=== PATIENT | female | born 1990 | race African-American/Black ===

== ENCOUNTER 2017-11-14 11:41 | Emergency (ER) | payer OTHER ==
[2017-11-14 11:51] VITALS: BMI 26.5
--- NOTE | 2017-11-14 12:01 | PDOC ---
History of Present Illness - General Chief Complaint: Headache Stated Complaint: MIGRAINE HEADACHE, LEG PAIN Time Seen by Provider: 11/14/17 12:00 - History of Present Illness Initial Comments: 11/14/17 12:46 The patient is a 27 year old female with a history of bipolar and MS who presents for evaluation of headache. The patient notes that she has been experiencing a poorly described headache over the past 1-2 days that has been minimally responsive to tylenol. She also noted that her menstruation only lasted 1 day ending today and that she has unprotected intercourse with her partner which prompted her presentation to the ED for further evaluation. She otherwise denies fevers, chills, vision changes, SOB, chest pain, nausea, vomiting, abdominal pain, numbness, tingling, weakness, or changes with urination or bowel movements. Past History - Past Medical History Allergies/Adverse Reactions: Allergies Allergy/AdvReac Type Severity Reaction Status Date / Time latex Allergy Verified 11/14/17 11:47 Home Medications: Ambulatory Orders Naproxen [Naprosyn -] 500 mg PO BID PRN #14 tablet 09/16/15 Teriflunomide [Aubagio] 14 mg PO ASDIR 09/16/15 COPD: No Psychiatric Problems: Yes (BIPOLAR.) Other medical history: M.S - Surgical History Abdominal Surgery: Yes - Reproductive History (#): 4 Para: 1 Therapeutic (s) & number: Yes (2) Spontaneous : 1 - Immunization History Immunization Up to Date: Yes - Suicide/Smoking/Psychosocial Hx Smoking Status: No Smoking History: Never smoked Have you smoked in the past 12 months: No Number of Cigarettes Smoked Daily: 0 Information on smoking cessation initiated: No Hx Alcohol Use: No Drug/Substance Use Hx: No Substance Use Type: None Hx Substance Use Treatment: No Review of Systems - Review of Systems Comments:: 11/14/17 12:49 Constitutional: No fevers, chills, fatigue, malaise HEENT: No Rhinorrhea, nasal congestion, visual changes Cardiovascular: No chest pain, syncope, palpitations, lightheadedness Respiratory: No Cough, SOB, Hemoptysis, Gastrointestinal: No Abdominal pain, Nausea, Vomiting, Constipation, Diarrhea, Melena Genitourinary: No Dysuria, Frequency, Urgency, Hesitancy, Hematuria, Flank pain Musculoskeletal: No Myalgia, arthralgia Skin: No rashes, itching, bruising, pallor Neurologic: Headache. No Dizziness, Numbness, Weakness, or Tingling Psychiatric: No Hallucinations. No SI or HI *Physical Exam - Vital Signs Last Vital Signs Temp Pulse Resp BP Pulse Ox 98.6 F 80 18 116/73 100 11/14/17 11:49 11/14/17 11:49 11/14/17 11:49 11/14/17 11:49 11/14/17 11:49 - Physical Exam Comments: 11/14/17 12:50 General Appearance: Nourished. No Apparent Distress HEENT: EOMI, DEBORAH. No Pharyngeal Erythema, Tonsillar Exudate, Tonsillar Erythema Neck: No Cervical Lymphadenopathy Respiratory/Chest: Lungs Clear, Normal Breath Sounds. No Crackles, Rales, Rhonchi, Wheezing Cardiovascular: Regular Rhythm, Regular Rate. No Murmur, Gallops, Rubs Gastrointestinal/Abdominal: Normal Bowel Sounds, Soft. No Guarding, Rebound, Tenderness Musculoskeletal: No CVA Tenderness Extremity: Normal Capillary Refill Integumentary: Normal Color, Dry, Warm Neurologic: Fully Oriented, Alert, Normal Mood/Affect, Normal Response, Medical Decision Making - Medical Decision Making 11/14/17 12:50 The patient is a 27 year old female with a history of bipolar and MS who presents for evaluation of headache. Differential includes but is not limited to: , Migraine, UTI. Given the patient's history and physical exam, we will obtain a ua and urine preg to evaluate further. We will treat the patient in the meantime with po reglan and tylenol. We will continue to monitor and reassess. 11/14/17 13:32 ua, urine preg are negative. The patient reports improvement in his symptoms. We are comfortable discharging the patient home with primary care provider follow up. We discussed the results, plan, and return precautions with the patient who voiced understanding and is agreeable with the plan. *DC/Admit/Observation/Transfer Diagnosis at time of Disposition: Headache Qualifiers: Headache type: unspecified Headache chronicity pattern: unspecified pattern Intractability: not intractable Qualified Code(s): R51 - Headache - Discharge Dispostion Disposition: HOME Condition at time of disposition: Stable Decision to Admit order: No - Referrals Referrals: Dwain Tejada [Primary Care Provider] - - Patient Instructions Printed Discharge Instructions: DI for Headache Additional Instructions: Please return to the ER if you experience concerning or worsening symptoms including worsening headache, vomiting, or fevers. Your test was negative here in the ER. It is important that you call to schedule a follow up appointment with your primary care provider within 2-3 days to discuss your ER visit and further management of your symptoms. - Post Discharge Activity
[2017-11-14] MEDS ORDERED: ACETAMINOPHEN 325 MG TABLET (FP) PO ONE (12:40)
[2017-11-14] MEDS ORDERED: METOCLOPRAMIDE HCL 10 MG TABLET (FP) PO ONE ×2 (12:40→13:18)
[2017-11-14 13:07] LABS: HCG,QUALITATIVE URINE NEGATIVE
[2017-11-14 13:12] LABS: URINE APPEARANCE CLEAR; URINE BILIRUBIN NEGATIVE (<2.0 mg/dL); URINE BLOOD 1+ (NEGATIVE); URINE COLOR LTYELLOW; URINE GLUCOSE (UA) NEGATIVE (NEGATIVE); URINE KETONE NEGATIVE (NEGATIVE); URINE LEUK ESTERASE NEGATIVE (NEGATIVE); URINE NITRITE NEGATIVE (NEGATIVE); URINE PROTEIN NEGATIVE (NEGATIVE)
[2017-11-14 13:14] LABS: EPI CELLS RARE /HPF (FEW); URINE MUCUS RARE
[2017-11-14] MEDS ORDERED: ACETAMINOPHEN 325 MG TABLET (FP) ONE (13:18)
--- NOTE | 2017-11-14 13:21 | PDOC ---
Attending Attestation - Resident Resident Name: Pedro Sharma - ED Attending Attestation I have performed the following: I have examined & evaluated the patient, The case was reviewed & discussed with the resident, I agree w/resident's findings & plan - HPI HPI: 11/14/17 13:19 27-year-old female with history of multiple sclerosis and bipolar disorder presents for a urine test. She has unprotected sex with her , is without any pelvic complaints or vaginal discharge or bleeding. She is complaining of subacute/chronic headaches and dizziness which are presumably part of her MS, no other acute flare or exacerbation. - Physicial Exam PE: 11/14/17 13:20 Vital signs normal Urine negative Alert seated in stretcher texting on her cell phone oriented and reasonable abd exam benign neuro nonfocal - Medical Decision Making 11/14/17 13:20 27-year-old female essentially here to rule out . Urinalysis is clear, urine is negative No symptoms suggestive of STI Nonfocal neurological exam, well-appearing and ambulating Reassured, agrees with discharge plan
[2017-11-14 13:49] VITALS: BP 112/70; PULSE 76; TEMP 98.1
== END 2017-11-14 13:50 | disposition home or self-care (01) ==
LOC: JER 11:41
DX: R51 Headache (principal)
CPT/HCPCS: 81003; 81015; 84703; 99282-25

== ENCOUNTER 2018-02-08 16:17 | Emergency (ER) | payer OTHER ==
[2018-02-08 16:26] VITALS: BP 119/64; PULSE 98; TEMP 98.6; BMI 25.2
--- NOTE | 2018-02-08 16:45 | PDOC ---
History of Present Illness - General Chief Complaint: Pain Stated Complaint: RT LEG PAIN Time Seen by Provider: 02/08/18 16:40 History Source: Patient Exam Limitations: No Limitations Past History - Travel Traveled outside of the country in the last 30 days: No Close contact w/someone who was outside of country & ill: No - Past Medical History Allergies/Adverse Reactions: Allergies Allergy/AdvReac Type Severity Reaction Status Date / Time latex Allergy Verified 02/08/18 16:23 Home Medications: Ambulatory Orders Teriflunomide [Aubagio] 14 mg PO ASDIR 09/16/15 Ibuprofen [Motrin -] 600 mg PO TID #21 tablet 02/08/18 COPD: No Psychiatric Problems: Yes (BIPOLAR.) Other medical history: MS - Surgical History Abdominal Surgery: Yes - Reproductive History (#): 4 Para: 1 Therapeutic (s) & number: Yes (2) Spontaneous : 1 - Immunization History Immunization Up to Date: Yes - Suicide/Smoking/Psychosocial Hx Smoking Status: No Smoking History: Never smoked Have you smoked in the past 12 months: No Number of Cigarettes Smoked Daily: 0 Hx Alcohol Use: No Drug/Substance Use Hx: No Substance Use Type: None Hx Substance Use Treatment: No *Physical Exam - Vital Signs Last Vital Signs Temp Pulse Resp BP Pulse Ox 98.6 F 98 H 16 119/64 100 02/08/18 16:25 02/08/18 16:25 02/08/18 16:25 02/08/18 16:25 02/08/18 16:25 *DC/Admit/Observation/Transfer Diagnosis at time of Disposition: High ankle sprain Qualifiers: Encounter type: initial encounter Laterality: right Qualified Code(s): S93.431A - Sprain of tibiofibular ligament of right ankle, initial encounter - Discharge Dispostion Disposition: HOME Condition at time of disposition: Stable Decision to Admit order: No - Referrals Referrals: Chang Pa MD [Staff Physician] - - Patient Instructions Printed Discharge Instructions: DI for Ankle Sprain Additional Instructions: You sprained your ankle. Please keep your ankle elevated while at rest above the level of your heart to reduce swelling. You may take Motrin 600 mg every 8 hours to help reduce pain and swelling. Please ice the area for 20 minute intervals at least 5 times a day to help reduce swelling. Please wear the Edu wrap. Please follow-up with orthopedics in 1 week if your symptoms are not improving. Return to the emergency department if you have worsening pain, or unable to walk , numbness and tingling of the foot, or had any changes in her symptoms. - Post Discharge Activity Forms/Work/School Notes: Back to Work
== END 2018-02-08 17:04 | disposition home or self-care (01) ==
LOC: JERFT 16:17
DX: S93.431A Sprain of tibiofibular ligament of right ankle, initial encounter (principal); X50.9XXA Other and unspecified overexertion or strenuous movements or postures, initial encounter; Y93.89 Activity, other specified; Y92.89 Other specified places as the place of occurrence of the external cause; Y99.8 Other external cause status; F31.9 Bipolar disorder, unspecified
CPT/HCPCS: 99281-25

== ENCOUNTER 2018-02-21 12:41 | Emergency (ER) | payer OTHER ==
[2018-02-21 12:45] VITALS: BP 102/65; PULSE 90; TEMP 98.2; BMI 24.8
[2018-02-21] MEDS ORDERED: ACETAMINOPHEN 500 MG TABLET (FP) PO ONE (13:17)
--- NOTE | 2018-02-21 13:21 | PDOC ---
History of Present Illness - General Chief Complaint: Headache Stated Complaint: HEADACHE Time Seen by Provider: 02/21/18 13:13 - History of Present Illness Initial Comments: 28-year-old female with a past medical history significant for multiple sclerosis presents for evaluation of headache 5 days. She has not taken anything for headache. She is also requesting a test. 02/21/18 13:20 Past History - Past Medical History Allergies/Adverse Reactions: Allergies Allergy/AdvReac Type Severity Reaction Status Date / Time latex Allergy Verified 02/21/18 12:45 Home Medications: Ambulatory Orders Teriflunomide [Aubagio] 14 mg PO ASDIR 09/16/15 Pnv No.121/Iron/Folic Acid [ Multivitamin Tablet] 1 each PO DAILY #30 tablet 02/21/18 COPD: No Psychiatric Problems: Yes (BIPOLAR.) - Surgical History Abdominal Surgery: Yes - Reproductive History (#): 4 Para: 1 Therapeutic (s) & number: Yes (2) Spontaneous : 1 - Immunization History Immunization Up to Date: Yes - Suicide/Smoking/Psychosocial Hx Smoking Status: No Smoking History: Never smoked Have you smoked in the past 12 months: No Number of Cigarettes Smoked Daily: 0 Hx Alcohol Use: No Drug/Substance Use Hx: No Substance Use Type: None Hx Substance Use Treatment: No Review of Systems - Review of Systems Neurological: Yes: Headache All Other Systems: Reviewed and Negative *Physical Exam - Vital Signs Last Vital Signs Temp Pulse Resp BP Pulse Ox 98.2 F 90 18 102/65 98 02/21/18 12:43 02/21/18 12:43 02/21/18 12:43 02/21/18 12:43 02/21/18 12:43 - Physical Exam Comments: HEAD: NC/AT EYES: Conjuntiva clear Ears: Canals and TM's normal NOSE: No d/c THROAT: Moist mucous membrances, oral pharanx clear, uvula midline NECK: Supple without adenopathy CARDIAC: S1 S2 LUNGS: CTA Full and Equal breath sounds ABDOMEN: Soft NT ND MS: Full ROM in all joints without edema NEUROLOGIC: No gross sensory or motor deficits, NVID SKIN: Normal color and temperature no lesions or rashes 02/21/18 13:20 *DC/Admit/Observation/Transfer Diagnosis at time of Disposition: , Headache Diagnosis at time of Disposition: (Ruled Out): Early stage of - Discharge Dispostion Disposition: HOME Condition at time of disposition: Stable Decision to Admit order: No - Referrals Referrals: Rob Milner [Non Staff, Medical] - Rishi Silverio [Non Staff, Medical] - Laura Hunter MD [Non Staff, Medical] - Maycol Tinsley MD [Non Staff, Medical] - Katelyn Belle MD [Staff Physician] - Jordon Toribio MD [Non Staff, Medical] - Misa Galan [Non Staff, Medical] - Yenny Ventura [Non Staff, Medical] - Linda Gama MD [Non Staff, Medical] - Yaneli Quijano [Non Staff, Medical] - Messi Akhtar MD [Staff Physician] - - Patient Instructions Printed Discharge Instructions: Tension Headache Additional Instructions: Return to the emergency room should symptoms worsen or go unresolved. Please take Tylenol only for pain at this point. You are , I have prescribed few a vitamin which she can olive picker he her pharmacy at 1 tablet daily. In addition I given you a list of primary care physicians and upset obstetricians to follow-up with. As well as a neurologist fear headache. Follow- up with neurology in [facility] within the next day or 2 return to the emergency room should symptoms worsen - Post Discharge Activity
[2018-02-21] MEDS ORDERED: ACETAMINOPHEN 500 MG TABLET (FP) ONE (13:25)
== END 2018-02-21 14:14 | disposition home or self-care (01) ==
LOC: JERFT 12:41
DX: Z33.1 Pregnant state, incidental (principal); R51 Headache
CPT/HCPCS: 84703; 99281-25

== ENCOUNTER 2018-03-03 12:31 | Emergency (ER) | payer OTHER ==
[2018-03-03 12:39] VITALS: BMI 23.8
--- NOTE | 2018-03-03 12:57 | PDOC ---
History of Present Illness - General Chief Complaint: Headache Stated Complaint: 6 WEEKS WITH PAIN Time Seen by Provider: 03/03/18 12:48 - History of Present Illness Initial Comments: 03/03/18 12:51 28 yo at 6wga, unknown LMP, who p/w headache. Patient reports two days of worsening, right sided, pulsating, intermittent, headache, with slight photophobia, and phonophobia. Also endorses 1 episode of non bilious, non bloody emesis x 2 days [employer] TE[employer]. +diffuse lower abdominal cramping, intermittently, with no triggers. Denies OTC pain management. Currently on Metronidazole x 1 day. Patient denies N/V,lacrimation, rhinorrhea, vision change, convulsions, neck stiffness, F,C, cough, CP, SOB, urinary complaints, diarrhea, constipation, vaginal bleeding or discharge, lightheadedness, weakness, sensory changes. PMHx: as noted above ROS: as noted SHx: Denies tobacco, IVDA, Etoh. Allergies: NKDA [facility]: [facility] Past History - Past Medical History Allergies/Adverse Reactions: Allergies Allergy/AdvReac Type Severity Reaction Status Date / Time latex Allergy Verified 03/03/18 12:33 Home Medications: Ambulatory Orders Teriflunomide [Aubagio] 14 mg PO ASDIR 09/16/15 Pnv No.121/Iron/Folic Acid [ Multivitamin Tablet] 1 each PO DAILY #30 tablet 02/21/18 COPD: No DVT: No Psychiatric Problems: Yes (BIPOLAR.) Other medical history: M.S - Surgical History Abdominal Surgery: Yes - Reproductive History (#): 4 Para: 1 Therapeutic (s) & number: Yes (2) Spontaneous : 1 - Immunization History Immunization Up to Date: Yes - Suicide/Smoking/Psychosocial Hx Smoking Status: No Smoking History: Never smoked Have you smoked in the past 12 months: No Number of Cigarettes Smoked Daily: 0 Information on smoking cessation initiated: No Hx Alcohol Use: No Drug/Substance Use Hx: No Substance Use Type: None Hx Substance Use Treatment: No Neuro Specific PMHX - Complaint Specific PMHX Multiple Sclerosis: Yes Review of Systems - Review of Systems Comments:: 03/03/18 12:55 GENERAL/CONSTITUTIONAL: No fever or chills. No weakness. HEAD, EYES, EARS, NOSE AND THROAT: No change in vision. No ear pain or discharge. No sore throat. CARDIOVASCULAR: No chest pain or shortness of breath RESPIRATORY: No cough, wheezing, or hemoptysis. GASTROINTESTINAL: No nausea, vomiting, diarrhea or constipation. GENITOURINARY: No dysuria, frequency, or change in urination. MUSCULOSKELETAL: No joint or muscle swelling or pain. No neck or back pain. SKIN: No rash NEUROLOGIC: No headache, vertigo, loss of consciousness, or change in strength/ sensation. ENDOCRINE: No increased thirst. No abnormal weight change HEMATOLOGIC/LYMPHATIC: No anemia, easy bleeding, or history of blood clots. ALLERGIC/IMMUNOLOGIC: No hives or skin allergy. *Physical Exam - Vital Signs Last Vital Signs Temp Pulse Resp BP Pulse Ox 98.5 F 87 18 112/65 100 03/03/18 12:36 03/03/18 12:36 03/03/18 12:36 03/03/18 12:36 03/03/18 12:36 - Physical Exam Comments: 03/03/18 12:55 GENERAL: Awake, alert, and fully oriented, in no acute distress HEAD: No signs of trauma, normocephalic, atraumatic EYES: PERRLA, EOMI, sclera anicteric, conjunctiva clear ENT: Auricles normal inspection, hearing grossly normal, nares patent, oropharynx clear without exudates. Moist mucosa NECK: Normal ROM, supple, no lymphadenopathy, JVD, or masses LUNGS: No distress, speaks full sentences, clear to auscultation bilaterally HEART: Regular rate and rhythm, normal S1 and S2, no murmurs, rubs or gallops, peripheral pulses normal and equal bilaterally. ABDOMEN: Soft, nontender, normoactive bowel sounds. No guarding, no rebound. No masses EXTREMITIES : Normal inspection, Normal range of motion, no edema. No clubbing or cyanosis. NEUROLOGICAL: Cranial nerves II through XII grossly intact. Normal speech, normal gait, no focal sensorimotor deficits SKIN: Warm, Dry, normal turgor, no rashes or lesions noted ED Treatment Course - LABORATORY CBC & Chemistry Diagram: 03/03/18 14:10 03/03/18 14:10 Medical Decision Making - Medical Decision Making 03/03/18 13:46 28 yo at 6wga, unknown LMP, who p/w headache, and lower abdominal pain. VSS, AF. Low suspcion preclampsia. Will assess for viable IUP. Patient with slight lower abdominal pain, with absent vaginal bleeding. R/o ectopic , threatened , cystitis. Patient with probable migraine. Absent neuro deficits, with absent alarm findings. Low suspicion SAH, hemaotma, sinus thrombosis. Ed Course: CBC, CMP, UA, Urine Cx. HCG Tylenol 03/03/18 14:32 03/03/18 15:49 [facility] CBC,CMP: Unremarkable 03/03/18 16:51 TVUS: 6w 1d, with no FHR. pole visualized in yolk sac within gestational sac within uterus. Patient advised to f/u for repeat ultrasound, and serial HCG. Patient symptoms improved. Stable for d/c with return precautions. Advised to f/ u with [facility] for serial testing. *DC/Admit/Observation/Transfer Diagnosis at time of Disposition: Headache Qualifiers: Headache type: unspecified Headache chronicity pattern: acute headache Intractability: not intractable Qualified Code(s): R51 - Headache - Discharge Dispostion Condition at time of disposition: Stable - Referrals Referrals: Han Stubbs MD [Staff Physician] - - Patient Instructions Printed Discharge Instructions: DI for Headache Additional Instructions: Please return to the emergency department with any new or worsening symptoms or concerns. Please follow up with your primary care physician within 72 hours. Please follow up with [facility] within 72 hours for repeat ultrasound and blood work. - Post Discharge Activity - Attestations Physician Attestion: 03/03/18 12:58 I attest to the information provided in this note.
--- NOTE | 2018-03-03 12:59 | PDOC ---
Attending Attestation - Resident Resident Name: RyanJose ManuelAashish - ED Attending Attestation I have performed the following: I have examined & evaluated the patient, The case was reviewed & discussed with the resident, I agree w/resident's findings & plan, Exceptions are as noted - HPI HPI: 28 yo approximately 6 weeks by dates (previously seen at [facility]), who p/w headache (right sided, throbbing, intermittent x 2 days), and diffuse lower abdominal pain. Patient with probable migraine. Absent neuro deficits, with absent alarm findings. Low suspicion SAH, hemaotma, sinus thrombosis. No nausea, one episode of vomiting No neck stiffness No dysuria or diarrhea - Physicial Exam PE: GENERAL: Awake, alert, and fully oriented, in no acute distress HEAD: No signs of trauma, normocephalic, atraumatic EYES: PERRLA, EOMI NECK: Normal ROM, supple, no nuchal rigidity LUNGS: No distress, speaks full sentences, clear to auscultation bilaterally HEART: Regular rate and rhythm, normal S1 and S2 ABDOMEN: Soft, nontender EXTREMITIES : Normal inspection, Normal range of motion . NEUROLOGICAL: Cranial nerves II through XII grossly intact. Normal speech, normal gait, no focal sensorimotor deficits - Medical Decision Making 03/05/18 08:26 Pt presents to the ER with a headache Requesting evaluation of [facility] CBC,CMP: Unremarkable UA negative TVUS: 6w 1d, with no FHR Patient advised to f/u for repeat ultrasound, and serial HCG.
[2018-03-03] MEDS ORDERED: ACETAMINOPHEN 325 MG TABLET (FP) PO ONE (13:42)
[2018-03-03 13:59] LABS: HCG,QUALITATIVE URINE Positive
[2018-03-03 14:00] LABS: URINE APPEARANCE CLEAR; URINE BILIRUBIN NEGATIVE (<2.0 mg/dL); URINE COLOR YELLOW; URINE GLUCOSE (UA) NEGATIVE (NEGATIVE); URINE KETONE NEGATIVE (NEGATIVE); URINE LEUK ESTERASE NEGATIVE (NEGATIVE); URINE NITRITE NEGATIVE (NEGATIVE); URINE PROTEIN NEGATIVE (NEGATIVE); URINE UROBILINOGEN NEGATIVE mg/dL (0.2-1.0)
[2018-03-03] MEDS ORDERED: ACETAMINOPHEN 325 MG TABLET (FP) ONE (14:17)
[2018-03-03 14:29] LABS: BASO % 0.7 % (0-2.0); EOS % 0.7 % (0-4.5); HEMATOCRIT 35.5 % (32.4-45.2); HEMOGLOBIN 11.6 GM/dL (10.7-15.3); LYMPH % 18.7 % (8-40); MCH 26.5 pg (25.7-33.7); MCHC 32.7 g/dl (32.0-36.0); MEAN CELL VOLUME 81.1 fl (80-96); MEAN PLT VOLUME 7.6 fl (7.5-11.1); NEUT % 72.9 % (42.8-82.8); PLATELET COUNT 201 K/MM3 (134-434); RBC 4.37 M/mm3 (3.60-5.2); RDW 14.6 % (11.6-15.6); WHITE BLOOD COUNT 6.6 K/mm3 (4.0-10.0)
[2018-03-03 14:44] LABS: ALBUMIN 4.1 g/dl (3.4-5.0); ALK PHOS 36 U/L (45-117); ANION GAP 10 MMOL/L (8-16); BILIRUBIN,TOTAL 0.5 mg/dL (0.2-1); BLOOD UREA NITROGEN 7 mg/dL (7-18); CALCIUM 8.7 mg/dL (8.5-10.1); CHLORIDE 104 mmol/L (98-107); CO2 24 mmol/L (21-32); CREATININE 0.6 mg/dL (0.55-1.3); GLUCOSE,RANDOM 84 mg/dL (74-106); POTASSIUM 3.6 mmol/L (3.5-5.1); SGOT/AST 15 U/L (15-37); SGPT/ALT 18 U/L (13-61); SODIUM 138 mmol/L (136-145); TOT PROT 6.9 g/dl (6.4-8.2)
[2018-03-03 16:45] VITALS: BP 96/63; PULSE 83; TEMP 98.1
== END 2018-03-03 17:17 | disposition home or self-care (01) ==
LOC: JER 12:31
DX: O26.891 Other specified pregnancy related conditions, first trimester (principal); R51 Headache; Z3A.01 Less than 8 weeks gestation of pregnancy
CPT/HCPCS: 36415; 76817-TC; 80053; 81003; 84702; 84703; 85025; 87086; 99282-25

== ENCOUNTER 2018-03-18 19:27 | Emergency (ER) | payer OTHER ==
[2018-03-18 19:47] VITALS: BP 110/62; PULSE 97; TEMP 98; BMI 24.8
[2018-03-18] MEDS ORDERED: ACETAMINOPHEN 325 MG TABLET (FP) PO ONE (21:25)
[2018-03-18] MEDS ORDERED: SODIUM CHLORIDE 0.9% 500 ML INFUS.BAG IV ONE (21:25)
--- NOTE | 2018-03-18 21:39 | PDOC ---
History of Present Illness - General Chief Complaint: Lightheaded Stated Complaint: WITH DIZZINESS Time Seen by Provider: 03/18/18 20:56 History Source: Patient Exam Limitations: No Limitations - History of Present Illness Initial Comments: 03/18/18 21:32 Patient is a 28 year old female with h/o MS 012, unknown LMP, who is 8 weeks 2 days based on ultrasound done on 03/03/18 at 6 weeks 1 day, complaining of lightheadedness back pain. Patient states symptoms started today. Back pain described as achy, 7/10, continuous. States she drink a lot of juice. No vaginal bleeding, no leakage of fluid. PMD: Dr. Pace PMHX: as above PSOCHX: GENERAL/CONSTITUTIONAL: [No fever or chills. (+) weakness. No weight change.] HEAD, EYES, EARS, NOSE AND THROAT: [No change in vision. No ear pain or discharge. No sore throat.] CARDIOVASCULAR: [No chest pain or shortness of breath.] RESPIRATORY: [No cough, wheezing, or hemoptysis.] GASTROINTESTINAL: [No nausea, vomiting, diarrhea or constipation. No rectal bleeding.] GENITOURINARY: [No dysuria, frequency, or change in urination.] MUSCULOSKELETAL: [No joint or muscle swelling or pain. No neck or back pain.] SKIN AND BREASTS: [No rash or easy bruising.] NEUROLOGIC: [No headache, vertigo, loss of consciousness, or loss of sensation.] PSYCHIATRIC: [No depression or anxiety.] ENDOCRINE: [No increased thirst. No abnormal weight change.] HEMATOLOGIC/LYMPHATIC: [No anemia, easy bleeding, or history of blood clots.] ALLERGIC/IMMUNOLOGIC: [No hives or skin allergy. No latex allergy.] GENERAL: [The patient is awake, alert, and fully oriented, in no acute distress. ] HEAD: [Normal with no signs of trauma.] EYES: [Pupils equal, round and reactive to light, extraocular movements intact, sclera anicteric, conjunctiva clear.] ENT: [Ears normal, nares patent, oropharynx clear without exudates. Moist mucous membranes.] NECK: [Normal range of motion, supple without lymphadenopathy, JVD, or masses.] LUNGS: [Breath sounds equal, clear to auscultation bilaterally. No wheezes, and no crackles.] HEART: [Regular rate and rhythm, normal S1 and S2 without murmur, rub.] ABDOMEN: [Soft, nontender, normoactive bowel sounds. No guarding, no rebound. No masses, (-) CVAT.] EXTREMITIES: [Normal range of motion, no edema. No clubbing or cyanosis. No cords, erythema, or tenderness.] NEUROLOGICAL: [Cranial nerves II through XII grossly intact. Normal speech, normal gait.] PSYCH: [Normal mood, normal affect.] SKIN: [Warm, Dry, normal turgor, no rashes or lesions noted.] Past History - Past Medical History Allergies/Adverse Reactions: Allergies Allergy/AdvReac Type Severity Reaction Status Date / Time latex Allergy Verified 03/18/18 19:48 Home Medications: Ambulatory Orders Teriflunomide [Aubagio] 14 mg PO ASDIR 09/16/15 Pnv No.121/Iron/Folic Acid [ Multivitamin Tablet] 1 each PO DAILY #30 tablet 02/21/18 105/Iron/Folic AC/Dha [Prena1 True Combo Pack] 1 each PO ONCE 30 Days # 30 combo..pkg MDD 1 tab 03/03/18 105/Iron/Folic AC/Dha [Vitatrue Combo Pack] 1 each PO ONCE 30 Days #30 combo..pkg MDD 1 tab 03/03/18 COPD: No DVT: No Psychiatric Problems: Yes (BIPOLAR.) Other medical history: MULTIPLE SCLEROSSI - Surgical History Abdominal Surgery: Yes - Reproductive History (#): 4 Para: 1 Therapeutic (s) & number: Yes (2) Spontaneous : 1 - Immunization History Immunization Up to Date: Yes - Suicide/Smoking/Psychosocial Hx Smoking Status: No Smoking History: Never smoked Have you smoked in the past 12 months: No Number of Cigarettes Smoked Daily: 0 Hx Alcohol Use: No Drug/Substance Use Hx: No Substance Use Type: None Hx Substance Use Treatment: No *Physical Exam - Vital Signs Last Vital Signs Temp Pulse Resp BP Pulse Ox 98 F 97 H 18 110/62 100 03/18/18 19:42 03/18/18 19:42 03/18/18 19:42 03/18/18 19:42 03/18/18 19:42 ED Treatment Course - LABORATORY CBC & Chemistry Diagram: 03/18/18 21:50 03/18/18 21:50 Medical Decision Making - Medical Decision Making 03/18/18 21:39 Patient is a 28-year-old female 03/18/18 22:08 Bedside ultrasound done shows IUP age-appropriate, FH 171. Addendum entered and electronically signed by Jason Underwood 03/19/18 03: 19: Progress Note - Progress Note Progress Note: see old chart Addendum entered and electronically signed by Jason Underwood 03/19/18 03: 20:
[2018-03-18] MEDS ORDERED: ACETAMINOPHEN 325 MG TABLET (FP) ONE (21:42)
[2018-03-18 22:04] LABS: BASO % 0.7 % (0-2.0); EOS % 0.8 % (0-4.5); HEMATOCRIT 32.9 % (32.4-45.2); HEMOGLOBIN 10.7 GM/dL (10.7-15.3); LYMPH % 17.9 % (8-40); MCH 26.5 pg (25.7-33.7); MCHC 32.6 g/dl (32.0-36.0); MEAN CELL VOLUME 81.3 fl (80-96); MEAN PLT VOLUME 7.3 fl (7.5-11.1); MONO % 7.9 % (3.8-10.2); NEUT % 72.7 % (42.8-82.8); PLATELET COUNT 244 K/MM3 (134-434); RBC 4.04 M/mm3 (3.60-5.2); RDW 14.5 % (11.6-15.6)
[2018-03-18 22:28] LABS: ALBUMIN 3.7 g/dl (3.4-5.0); ALK PHOS 61 U/L (45-117); ANION GAP 9 MMOL/L (8-16); BILIRUBIN,TOTAL 0.2 mg/dL (0.2-1); BLOOD UREA NITROGEN 11 mg/dL (7-18); CALCIUM 8.5 mg/dL (8.5-10.1); CHLORIDE 105 mmol/L (98-107); CO2 24 mmol/L (21-32); CREATININE 0.5 mg/dL (0.55-1.3); GLUCOSE,RANDOM 80 mg/dL (74-106); POTASSIUM 3.8 mmol/L (3.5-5.1); SGOT/AST 17 U/L (15-37); SGPT/ALT 29 U/L (13-61); SODIUM 138 mmol/L (136-145); TOT PROT 6.7 g/dl (6.4-8.2)
[2018-03-18 23:18] LABS: URINE APPEARANCE SLCLOUDY; URINE BILIRUBIN NEGATIVE (<2.0 mg/dL); URINE COLOR LTYELLOW; URINE GLUCOSE (UA) NEGATIVE (NEGATIVE); URINE KETONE NEGATIVE (NEGATIVE); URINE LEUK ESTERASE NEGATIVE (NEGATIVE); URINE NITRITE NEGATIVE (NEGATIVE); URINE PROTEIN NEGATIVE (NEGATIVE); URINE UROBILINOGEN NEGATIVE mg/dL (0.2-1.0)
[2018-03-18 23:23] LABS: EPI CELLS MODERATE /HPF (FEW); URINE MUCUS RARE
--- NOTE | 2018-03-18 23:53 | PDOC ---
*Physical Exam - Vital Signs Last Vital Signs Temp Pulse Resp BP Pulse Ox 98 F 97 H 18 110/62 100 03/18/18 19:42 03/18/18 19:42 03/18/18 19:42 03/18/18 19:42 03/18/18 19:42 ED Treatment Course - LABORATORY CBC & Chemistry Diagram: 03/18/18 21:50 03/18/18 21:50 - ADDITIONAL ORDERS Additional order review: Laboratory Results 03/18/18 03/18/18 23:10 21:50 Sodium 138 Potassium 3.8 Chloride 105 Carbon Dioxide 24 Anion Gap 9 BUN 11 Creatinine 0.5 L Creat Clearance w eGFR > 60 Random Glucose 80 Calcium 8.5 Total Bilirubin 0.2 AST 17 ALT 29 Alkaline Phosphatase 61 Total Protein 6.7 Albumin 3.7 Urine Color Ltyellow Urine Appearance Slcloudy Urine pH 5.0 Ur Specific [place] 1.024 Urine Protein Negative Urine Glucose (UA) Negative Urine Ketones Negative Urine Blood 2+ H Urine Nitrite Negative Urine Bilirubin Negative Urine Urobilinogen Negative Ur Leukocyte Esterase Negative Urine WBC (Auto) 2 Urine RBC (Auto) 2 Ur Epithelial Cells Moderate Urine Mucus Rare 03/18/18 21:50 RBC 4.04 MCV 81.3 MCHC 32.6 RDW 14.5 MPV 7.3 L Neutrophils % 72.7 Lymphocytes % 17.9 Monocytes % 7.9 Eosinophils % 0.8 Basophils % 0.7 - Medications Given in the ED: ED Medications Discontinued Medications Generic Name Dose Route Start Last Admin Trade Name Freq PRN Reason Stop Dose Admin Acetaminophen 650 mg 03/18/18 21:25 03/18/18 21:54 Tylenol - PO 03/18/18 21:26 650 mg ONCE ONE Administration Sodium Chloride 1,000 ml 03/18/18 21:25 03/18/18 21:53 Normal Saline - IV 03/18/18 21:26 1,000 ml ONCE ONE Administration Medical Decision Making - Medical Decision Making 03/18/18 23:48 Patient is a 28-year-old female with history of MS, with unknown LMP complaining of lightheadedness and back pain which started this evening. Will get routine labs and hydrate Tylenol D/C when stable. Acute findings and lab work Receive a liter of fluid and is feeling better I discussed the physical exam findings, ancillary test results and final diagnoses with the patient. I answered all of the patient's questions. The patient was satisfied with the care received and felt comfortable with the discharge plan and treatment plan. The Patient agrees to follow up with the primary care physician within 24-72 hours. *DC/Admit/Observation/Transfer Diagnosis at time of Disposition: Back pain affecting in first trimester, Dizziness - Discharge Dispostion Disposition: HOME Condition at time of disposition: Stable - Referrals - Patient Instructions Printed Discharge Instructions: DI for Dizziness-Nonvertigo, DI for Low Back Pain Additional Instructions: Your Discharge Instructions: You must call primary care physician within 24 hours to arrange follow-up. Return to the Emergency Department with any new, persistent or worsening symptoms, for fever, chills, SOB, dizziness or any other concerning changes that may occur. You must follow-up with your OB doctor in the morning. - Post Discharge Activity
== END 2018-03-19 00:05 | disposition home or self-care (01) ==
LOC: JER 19:27
DX: O99.89 Other specified diseases and conditions complicating pregnancy, childbirth and the puerperium (principal); M54.5 Low back pain; R42 Dizziness and giddiness; Z3A.08 8 weeks gestation of pregnancy
CPT/HCPCS: 36415; 80053; 81003; 81015; 85025; 99282-25

== ENCOUNTER 2018-03-23 22:18 | Emergency (ER) | payer OTHER ==
[2018-03-23 22:32] VITALS: BP 110/55; PULSE 72; TEMP 97.9; BMI 24.1
--- NOTE | 2018-03-23 22:47 | PDOC ---
History of Present Illness - History of Present Illness Initial Comments: 28 year old with MS currently 8 weeks by US presenting with total body pain for the past few weeks that worsened today,. She beleives that she is having an MS flare. Her pain is wors ein her shoulders, back and head. She also admits to some dizziness and "head gong around in circles". Patient is very difficult to understand as her words occasionally come out of order. She denies any fevers, chills, nausea, vomiting, diarrhea or other pains. Her neurologist is Dr. Key salcedo she is taking Aubagio for her MS. She was in our ED a few days prior and a FHR at 171 was identified with an IUP, however, an US report from 03/03 showed a 6 week 1 day without FHR. 03/23/18 23:15 <Jayme Webb - Last Filed: 03/23/18 23:27> <Monica Navarro - Last Filed: 03/24/18 03:34> - General Chief Complaint: Headache Stated Complaint: HEADACHE Time Seen by Provider: 03/23/18 22:26 Past History - Past Medical History COPD: No DVT: No Psychiatric Problems: Yes (BIPOLAR.) - Surgical History Abdominal Surgery: Yes - Reproductive History (#): 4 Para: 1 Therapeutic (s) & number: Yes (2) Spontaneous : 1 - Immunization History Immunization Up to Date: Yes - Suicide/Smoking/Psychosocial Hx Smoking Status: No Smoking History: Never smoked Have you smoked in the past 12 months: No Number of Cigarettes Smoked Daily: 0 Information on smoking cessation initiated: No Hx Alcohol Use: No Drug/Substance Use Hx: No Substance Use Type: None Hx Substance Use Treatment: No <Jayme Webb - Last Filed: 03/23/18 23:27> <Monica Navarro - Last Filed: 03/24/18 03:34> - Past Medical History Allergies/Adverse Reactions: Allergies Allergy/AdvReac Type Severity Reaction Status Date / Time latex Allergy Verified 03/23/18 22:32 Home Medications: Ambulatory Orders Teriflunomide [Aubagio] 14 mg PO ASDIR 09/16/15 Pnv No.121/Iron/Folic Acid [ Multivitamin Tablet] 1 each PO DAILY #30 tablet 02/21/18 105/Iron/Folic AC/Dha [Prena1 True Combo Pack] 1 each PO ONCE 30 Days # 30 combo..pkg MDD 1 tab 03/03/18 105/Iron/Folic AC/Dha [[place] Combo Pack] 1 each PO ONCE 30 Days #30 combo..pkg MDD 1 tab 03/03/18 Review of Systems - Review of Systems Constitutional: No: Chills, Diaphoresis, Fever HEENTM: No: Blurred Vision, Tearing Respiratory: No: Cough, Orthopnea, Shortness of Breath Cardiac (ROS): No: Edema, Irregular Heart Rate, Lightheadedness ABD/GI: No: Diarrhea, Nausea, Poor Appetite, Vomiting : No: Burning, Dysuria, Discharge Musculoskeletal: No: Joint Pain, Joint Swelling, Muscle Weakness, Joint Stiffness Integumentary: No: Bruising, Change in Color, Flushing, Lesions, Lumps Neurological: Yes: Headache, Paresthesia, Other (MS). No: Numbness Psychiatric: No: Anxiety, Depression Endocrine: No: Excessive Sweating, Flushing Hematologic/Lymphatic: No: Anemia, Blood Clots, Easy Bleeding <Jayme Webb - Last Filed: 03/23/18 23:27> *Physical Exam - Vital Signs Last Vital Signs Temp Pulse Resp BP Pulse Ox 97.9 F 72 18 110/55 L 99 03/23/18 22:28 03/23/18 22:28 03/23/18 22:28 03/23/18 22:28 03/23/18 22:28 - Physical Exam General Appearance: Yes: Nourished, Appropriately Dressed. No: Apparent Distress HEENT: positive: EOMI, DEBORAH, Normal ENT Inspection, Normal Voice Neck: positive: Trachea midline, Normal Thyroid, Supple. negative: Tender, Rigid Respiratory/Chest: positive: Lungs Clear, Normal Breath Sounds. negative: Chest Tender, Respiratory Distress, Accessory Muscle Use Cardiovascular: positive: Regular Rhythm, Regular Rate Female Pelvic Exam: positive: normal external exam, cervical os closed, normal adnexa, normal size ovaries, vaginal bleeding (mild amount of dark vagnal blood in the vault no active bleeding. ) Gastrointestinal/Abdominal: positive: Normal Bowel Sounds, Flat, Soft. negative : Tender Lymphatic: negative: Adenopathy, Tenderness Musculoskeletal: positive: Normal Inspection. negative: Decreased Range of Motion Extremity: positive: Normal Capillary Refill, Normal Inspection, Normal Range of Motion. negative: Tender Integumentary: positive: Normal Color, Dry, Warm Neurologic: positive: down filler II-XII NML intact, Fully Oriented, Alert, Normal Mood/ Affect, Motor Strength 5/5, Numbness, Sensory Deficit (Slightly sensory deficit over he right side of her face ), Finger to Nose. negative: Normal Response ( Seems to use some words out of order and has some word finding difficulty. ), Abnormal Cranial NS, EOM Palsy, Facial Droop, Confused, Disoriented, Depressed Affect <Jayme Webb - Last Filed: 03/23/18 23:27> - Vital Signs Last Vital Signs Temp Pulse Resp BP Pulse Ox 97.9 F 72 18 110/55 L 99 03/23/18 22:28 03/23/18 22:28 03/23/18 22:28 03/23/18 22:28 03/23/18 22:28 <Monica Navarro - Last Filed: 03/24/18 03:34> ED Treatment Course - LABORATORY CBC & Chemistry Diagram: 03/23/18 23:40 03/23/18 23:40 - ADDITIONAL ORDERS Additional order review: Laboratory Results 03/23/18 03/23/18 03/23/18 23:40 23:40 23:40 PT with INR 11.60 INR 0.98 Sodium 136 Potassium 4.0 Chloride 101 Carbon Dioxide 27 Anion Gap 8 BUN 8 Creatinine 0.5 L Creat Clearance w eGFR > 60 Random Glucose 75 Calcium 8.8 Total Bilirubin 0.5 AST 34 ALT 25 Alkaline Phosphatase 44 L Total Protein 7.2 Albumin 3.8 Beta HCG, Quant > 547652.0 Urine Color Urine Appearance Urine pH Ur Specific [place] Urine Protein Urine Glucose (UA) Urine Ketones Urine Blood Urine Nitrite Urine Bilirubin Urine Urobilinogen Ur Leukocyte Esterase Urine WBC (Auto) Urine RBC (Auto) Ur Epithelial Cells Urine Bacteria Urine Mucus Urine HCG, Qual Opiates Screen Methadone Screen Barbiturate Screen Phencyclidine Screen Ur Amphetamines Screen MDMA (Ecstasy) Screen Benzodiazepines Screen Cocaine Screen U Marijuana (THC) Screen Blood Type O POSITIVE Antibody Screen Negative 03/23/18 03/23/18 03/23/18 23:27 00:05 00:05 PT with INR INR Sodium Potassium Chloride Carbon Dioxide Anion Gap BUN Creatinine Creat Clearance w eGFR Random Glucose Calcium Total Bilirubin AST ALT Alkaline Phosphatase Total Protein Albumin Beta HCG, Quant Urine Color Yellow Urine Appearance Clear Urine pH 5.0 Ur Specific [place] 1.025 Urine Protein Negative Urine Glucose (UA) Negative Urine Ketones Negative Urine Blood 3+ H Urine Nitrite Negative Urine Bilirubin Negative Urine Urobilinogen Negative Ur Leukocyte Esterase Negative Urine WBC (Auto) 2 Urine RBC (Auto) 4 Ur Epithelial Cells Rare Urine Bacteria Rare Urine Mucus Rare Urine HCG, Qual Positive Opiates Screen Negative Methadone Screen Negative Barbiturate Screen Negative Phencyclidine Screen Negative Ur Amphetamines Screen Negative MDMA (Ecstasy) Screen Negative Benzodiazepines Screen Negative Cocaine Screen Negative U Marijuana (THC) Screen Negative Blood Type Antibody Screen 03/23/18 23:40 RBC 4.41 MCV 81.3 MCHC 31.8 L RDW 14.6 MPV 7.6 Neutrophils % 73.5 Lymphocytes % 17.7 Monocytes % 6.9 Eosinophils % 0.9 Basophils % 1.0 <Monica Navarro - Last Filed: 03/24/18 03:34> Medical Decision Making - Medical Decision Making 28 year old female with PMH of MS presenting with diffuse pains across her body and some minor intermittent vaginal spotting concerned that she is having an MS flareup. Patient does have some word finding difficulty and has some slightly decreased sharp touch sensation across the right side of her face but no focal motor deficit. Highest suspicion for MS flare up. 03/23/18 23:28 Pelvic exam significant for dark blood in the vaginal vault without active bleed. Cervix closeds, no discharge or adnexal/ cmt tenderness. Signed out to Dr. Cannon in stable condition. 03/24/18 00:13 <Jayme Webb - Last Filed: 03/23/18 23:27> *DC/Admit/Observation/Transfer - Discharge Dispostion Decision to Admit order: Yes <Jayme Webb - Last Filed: 03/23/18 23:27> - Discharge Dispostion Decision to Admit order: No <Monica Navarro - Last Filed: 03/24/18 03:34> Diagnosis at time of Disposition: Multiple sclerosis, Threatened - Discharge Dispostion Disposition: HOME Condition at time of disposition: Stable - Referrals Referrals: Dwain Tejada [Primary Care Provider] - - Patient Instructions Printed Discharge Instructions: DI for Threatened
--- NOTE | 2018-03-23 23:27 | PDOC ---
Attending Attestation - HPI HPI: This patient is a 28 year old female with h/o MS, bipolar, 012, unknown LMP, who is 9 weeks based on ultrasound done on 03/03/18 at 6 weeks 1 day, complaining of headache. She describes her headache as head- spinning. On exam patients speech is difficult to understand and her words seems to be out of order. Patient reports all over body aches/pain. Neuro: Travis Mackey PMD: not on staff <Vonnie Cota - Last Filed: 03/24/18 01:18> - Resident Resident Name: Jayme Webb - ED Attending Attestation I have performed the following: I have examined & evaluated the patient, The case was reviewed & discussed with the resident, I agree w/resident's findings & plan - HPI HPI: 03/23/18 23:25 Pt comes with MS flare. She is approx 8 weeks. We will send her for a sono today to confirm the FH. Pt will be worked up with basic labs and we will have her neurologist consult on her during her stay. She will likely require an MRI; cannot get Ct scan as she is presgnant. - Physicial Exam PE: 03/24/18 00:48 Pt has small amt of brown blood in her vag vault; os is closed; open only to fingertip. She has no CMT and no adnexal tenderness - Medical Decision Making 03/24/18 00:49 Pt will have labs; type and screen; sono of the baby. 03/24/18 03:32 Patient Name: HILLARY HARTMANN THIS IS A PRELIMINARY REPORT FROM [facility] DATE OF SERVICE: 2018-03-24 00:19:17 IMAGES: 17 EXAM: OB Ultrasound < 14 wks single fetus and Duplex scan pelvis, complete Single live intrauterine Gestational age 8 weeks 4 days heart rate 182 bpm Closed cervix 3.8 cm long No ovarian torsion. Color flow bilaterally and arterial and venous waveforms on the right. 4.0 cm corpus luteum left ovary. THIS DOCUMENT HAS BEEN ELECTRONICALLY SIGNED 03/24/18 03:33 Pt stable for D/c; RH positive blood; ready to go home. Imp threatened <Monica Navarro - Last Filed: 03/24/18 03:33>
[2018-03-24 00:04] LABS: EOS % 0.9 % (0-4.5); HEMATOCRIT 35.8 % (32.4-45.2); HEMOGLOBIN 11.4 GM/dL (10.7-15.3); LYMPH % 17.7 % (8-40); MCH 25.9 pg (25.7-33.7); MCHC 31.8 g/dl (32.0-36.0); MEAN CELL VOLUME 81.3 fl (80-96); MEAN PLT VOLUME 7.6 fl (7.5-11.1); MONO % 6.9 % (3.8-10.2); NEUT % 73.5 % (42.8-82.8); PLATELET COUNT 283 K/MM3 (134-434); RBC 4.41 M/mm3 (3.60-5.2); RDW 14.6 % (11.6-15.6); WHITE BLOOD COUNT 9.3 K/mm3 (4.0-10.0)
[2018-03-24 00:17] LABS: INR 0.98 (0.83-1.09); PROTHROMBIN TIME (PATIENT) 11.6 SEC (9.7-13.0)
[2018-03-24 00:17] LABS: URINE APPEARANCE CLEAR; URINE BILIRUBIN NEGATIVE (<2.0 mg/dL); URINE COLOR YELLOW; URINE GLUCOSE (UA) NEGATIVE (NEGATIVE); URINE KETONE NEGATIVE (NEGATIVE); URINE LEUK ESTERASE NEGATIVE (NEGATIVE); URINE NITRITE NEGATIVE (NEGATIVE); URINE PROTEIN NEGATIVE (NEGATIVE); URINE UROBILINOGEN NEGATIVE mg/dL (0.2-1.0)
[2018-03-24 00:21] LABS: EPI CELLS RARE /HPF (FEW); URINE BACTERIA RARE /hpf (NONE SEEN); URINE MUCUS RARE
[2018-03-24 00:42] LABS: ALBUMIN 3.8 g/dl (3.4-5.0); ALK PHOS 44 U/L (45-117); ANION GAP 8 MMOL/L (8-16); BILIRUBIN,TOTAL 0.5 mg/dL (0.2-1); BLOOD UREA NITROGEN 8 mg/dL (7-18); CALCIUM 8.8 mg/dL (8.5-10.1); CHLORIDE 101 mmol/L (98-107); CO2 27 mmol/L (21-32); CREATININE 0.5 mg/dL (0.55-1.3); GLUCOSE,RANDOM 75 mg/dL (74-106); SGOT/AST 34 U/L (15-37); SGPT/ALT 25 U/L (13-61); SODIUM 136 mmol/L (136-145); TOT PROT 7.2 g/dl (6.4-8.2)
[2018-03-24 00:42] LABS: COCAINE, UR NEGATIVE ng/ml (CUTOFF=300); METHADONE, UR NEGATIVE ng/ml (CUTOFF=300); OPIATES, URI NEGATIVE ng/ml (CUTOFF=300); PHENCYCLIDINE,URINE NEGATIVE ng/ml (CUTOFF=25); URINE AMPHETAMINES NEGATIVE ng/ml (CUTOFF=500); URINE BARBITURATES NEGATIVE ng/ml (CUTOFF=200); URINE BENZODIAZEPINES NEGATIVE ng/ml (CUTOFF=200)
--- NOTE | 2018-03-24 04:09 | PDOC ---
*Physical Exam - Vital Signs Last Vital Signs Temp Pulse Resp BP Pulse Ox 97.9 F 72 18 110/55 L 99 03/23/18 22:28 03/23/18 22:28 03/23/18 22:28 03/23/18 22:28 03/23/18 22:28 ED Treatment Course - LABORATORY CBC & Chemistry Diagram: 03/23/18 23:40 03/23/18 23:40 - ADDITIONAL ORDERS Additional order review: Laboratory Results 03/23/18 03/23/18 03/23/18 23:40 23:40 23:40 PT with INR 11.60 INR 0.98 Sodium 136 Potassium 4.0 Chloride 101 Carbon Dioxide 27 Anion Gap 8 BUN 8 Creatinine 0.5 L Creat Clearance w eGFR > 60 Random Glucose 75 Calcium 8.8 Total Bilirubin 0.5 AST 34 ALT 25 Alkaline Phosphatase 44 L Total Protein 7.2 Albumin 3.8 Beta HCG, Quant > 676605.0 Urine Color Urine Appearance Urine pH Ur Specific [place] Urine Protein Urine Glucose (UA) Urine Ketones Urine Blood Urine Nitrite Urine Bilirubin Urine Urobilinogen Ur Leukocyte Esterase Urine WBC (Auto) Urine RBC (Auto) Ur Epithelial Cells Urine Bacteria Urine Mucus Urine HCG, Qual Opiates Screen Methadone Screen Barbiturate Screen Phencyclidine Screen Ur Amphetamines Screen MDMA (Ecstasy) Screen Benzodiazepines Screen Cocaine Screen U Marijuana (THC) Screen Blood Type O POSITIVE Antibody Screen Negative 03/23/18 03/23/18 03/23/18 23:27 00:05 00:05 PT with INR INR Sodium Potassium Chloride Carbon Dioxide Anion Gap BUN Creatinine Creat Clearance w eGFR Random Glucose Calcium Total Bilirubin AST ALT Alkaline Phosphatase Total Protein Albumin Beta HCG, Quant Urine Color Yellow Urine Appearance Clear Urine pH 5.0 Ur Specific [place] 1.025 Urine Protein Negative Urine Glucose (UA) Negative Urine Ketones Negative Urine Blood 3+ H Urine Nitrite Negative Urine Bilirubin Negative Urine Urobilinogen Negative Ur Leukocyte Esterase Negative Urine WBC (Auto) 2 Urine RBC (Auto) 4 Ur Epithelial Cells Rare Urine Bacteria Rare Urine Mucus Rare Urine HCG, Qual Positive Opiates Screen Negative Methadone Screen Negative Barbiturate Screen Negative Phencyclidine Screen Negative Ur Amphetamines Screen Negative MDMA (Ecstasy) Screen Negative Benzodiazepines Screen Negative Cocaine Screen Negative U Marijuana (THC) Screen Negative Blood Type Antibody Screen 03/23/18 23:40 RBC 4.41 MCV 81.3 MCHC 31.8 L RDW 14.6 MPV 7.6 Neutrophils % 73.5 Lymphocytes % 17.7 Monocytes % 6.9 Eosinophils % 0.9 Basophils % 1.0 Medical Decision Making - Medical Decision Making 03/24/18 04:[address] Cannon. 03/24/18 04:[address] Navarro Pt stable for D/c; RH positive blood; ready to go home. *DC/Admit/Observation/Transfer Diagnosis at time of Disposition: Multiple sclerosis, Threatened - Discharge Dispostion Disposition: HOME Condition at time of disposition: Stable - Referrals Referrals: Dwain Tejada [Primary Care Provider] - - Patient Instructions Printed Discharge Instructions: DI for Threatened - Post Discharge Activity
== END 2018-03-24 02:45 | disposition home or self-care (01) ==
LOC: JER 22:18
DX: O26.891 Other specified pregnancy related conditions, first trimester (principal); O99.351 Diseases of the nervous system complicating pregnancy, first trimester; G35 Multiple sclerosis; O20.0 Threatened abortion; Z3A.08 8 weeks gestation of pregnancy
CPT/HCPCS: 36415; 76801-TC; 80053; 80307; 81003; 81015; 84702; 84703; 85025; 85610; 86850; 86900; 86901; 87086; 99281-25

== ENCOUNTER 2018-03-24 04:04 | Observation (INO) | payer OTHER ==
[2018-03-24] MEDS ORDERED: ACETAMINOPHEN 1000 MG/100 ML VIAL (NON FORMULARY) IVPB ONE (04:58)
--- NOTE | 2018-03-24 04:58 | PDOC ---
History of Present Illness - General Chief Complaint: Back Pain Stated Complaint: VAGINAL BLEED/14 WEEKS Time Seen by Provider: 03/24/18 04:34 - History of Present Illness Initial Comments: 03/24/18 04:58 CHIEF COMPLAINT: pain HISTORY OF PRESENT ILLNESS: 28 year old F with hx of MS currently 8 weeks by US performed approximately 10 hours ago, returns to ED after being discharged just hours ago for c/o of continuing back pain radiating to R leg that she says is secondary to her MS. On exam earlier per previous providers, she was difficult to understand due to garbled speech but on this presentation she is speaking coherently, repeatedly stating that she is in pain and she is worried about her vaginal bleeding "because this is my third and I've never had that happen." She denies any fevers, chills, nausea, vomiting, diarrhea or other pains. She states her neurologist is Dr. Mackey and she is taking Aubagio for her MS. She reports being followed by an OB clinic but does not know who the doctor is. No recent travel or sick contacts. PAST MEDICAL HISTORY: MS FAMILY HISTORY: Denies SOCIAL HISTORY:Denies tobacco, alcohol, illicit drug use. SURGICAL HISTORY: Denies ALLERGIES: latex REVIEW OF SYSTEMS General/Constitutional: Denies fever or chills. Denies weakness, weight change. HEENT: Denies change in vision. Denies ear pain or discharge. Denies sore throat. Cardiovascular: Denies chest pain or shortness of breath. Respiratory: Denies cough, wheezing, or hemoptysis. Gastrointestinal: Denies nausea, vomiting, diarrhea or constipation. Denies rectal bleeding. Genitourinary: Brown vaginal discharge. Musculoskeletal: Right lower back pain radiating down to R leg. Skin and breasts: Denies rash or easy bruising. Neurologic: Pain to back of head. Denies vertigo, loss of consciousness, or loss of sensation. PHYSICAL EXAM General Appearance: Well-appearing, appropriately dressed. No apparent distress. HEENT: EOMI, PERRLA, normal ENT inspection, normal voice, TMs normal, pharynx normal. No conjunctival pallor. No photophobia, scleral icterus. Respiratory/Chest: Lungs CTAB. Cardiovascular: RRR. S1, S2. Gastrointestinal/Abdominal: Normal bowel sounds. Abdomen soft, non-distended. No tenderness or rebound tenderness. No organomegaly, pulsatile mass, guarding , hernia, hepatomegaly, splenomegaly. Musculoskeletal/Extremities: Normal inspection. FROM of all extremities, normal capillary refill. Pelvis Stable. No CVA tenderness. No tenderness to extremities, pedal edema, swelling, erythema or deformity. Integumentary: Appropriate color, dry, warm. 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 Fully oriented, alert. Appropriate mood/affect. Motor strength 5/5. No appreciable EOM palsy, facial droop or sensory deficit. Past History - Past Medical History Allergies/Adverse Reactions: Allergies Allergy/AdvReac Type Severity Reaction Status Date / Time latex Allergy Verified 03/24/18 04:36 Home Medications: Ambulatory Orders Teriflunomide [Aubagio] 14 mg PO ASDIR 09/16/15 105/Iron/Folic AC/Dha [Prena1 True Combo Pack] 1 each PO ONCE 30 Days # 30 combo..pkg MDD 1 tab 03/03/18 COPD: No DVT: No Psychiatric Problems: Yes (BIPOLAR.) - Surgical History Abdominal Surgery: Yes - Reproductive History (#): 4 Para: 1 Therapeutic (s) & number: Yes (2) Spontaneous : 1 - Immunization History Immunization Up to Date: Yes - Suicide/Smoking/Psychosocial Hx Smoking Status: No Smoking History: Never smoked Have you smoked in the past 12 months: No Number of Cigarettes Smoked Daily: 0 Information on smoking cessation initiated: No Hx Alcohol Use: No Drug/Substance Use Hx: No Substance Use Type: None Hx Substance Use Treatment: No *Physical Exam - Vital Signs Last Vital Signs Temp Pulse Resp BP Pulse Ox 98.3 F 81 18 110/47 L 100 03/24/18 04:10 03/24/18 04:10 03/24/18 04:10 03/24/18 04:10 03/24/18 04:10 ED Treatment Course - LABORATORY CBC & Chemistry Diagram: 03/24/18 10:20 03/24/18 10:20 Medical Decision Making - Medical Decision Making 03/24/18 05:09 28 year old with MS currently 8 weeks by US performed approximately 10 hours ago returns to ED after being discharged just hours ago for c/o of continuing back pain radiating to R leg that she says is secondary to her MS. -IV Tylenol -Will admit to hospitalist for neuro consult in am for possible MRI given continued pain and transient unusual speech 03/24/18 06:11 Dr. Key gray, awaiting callback. Discussed case with admitting hospitalist MD Tinajero, will admit to obs. 03/24/18 06:[address] Medel, covering for Dr. Mackey, patient is to have MRI completed on this admission. *DC/Admit/Observation/Transfer Diagnosis at time of Disposition: Multiple sclerosis, Threatened miscarriage - Discharge Dispostion Condition at time of disposition: Fair Decision to Admit order: Yes - Referrals - Patient Instructions - Post Discharge Activity
[2018-03-24] MEDS ORDERED: ACETAMINOPHEN INJECTION 100 ML IVPB ONE (06:57)
--- NOTE | 2018-03-24 09:06 | HP ---
CHIEF COMPLAINT: vaginal bleed, back pain PCP: Dr Mackey, neuro HISTORY OF PRESENT ILLNESS: Patient is a 28 year old 4, Para 2 with past medical history of MS. She is currently 8 weeks by US performed in the ED. She presents to the ED with c/o of continuing back pain radiating to R leg that she says is secondary to her MS. She states that she is having back pain and she is worried about her vaginal bleeding. Patient on Aubagio (Teriflunamide) for MS for approximately 3 years and stopped when with her daughter. She resumed Aubagio for MS and stopped 4 weeks ago and has not taken it since. Patient was to follow up with Dr. Mackey on 03/27 but came to the ED with worsening back pain and vaginal bleeding. No recent travel or sick contacts. PAST MEDICAL HISTORY: MS PAST SURGICAL HISTORY: Social History: Smoking: denies Alcohol:denies Drugs: denies Family History: Allergies latex Allergy (Verified 03/24/18 04:36) HOME MEDICATIONS: Home Medications Medication Instructions Recorded Teriflunomide [Aubagio] 14 mg PO ASDIR 09/16/15 Pnv No.121/Iron/Folic Acid 1 each PO DAILY #30 tablet 02/21/18 [ Multivitamin Tablet] 105/Iron/Folic AC/Dha 1 each PO ONCE 30 Days #30 03/03/18 [Prena1 True Combo Pack] combo..pkg MDD 1 tab 105/Iron/Folic AC/Dha 1 each PO ONCE 30 Days #30 03/03/18 [Vitatrue Combo Pack] combo..pkg MDD 1 tab PHYSICAL EXAMINATION Vital Signs - 24 hr 03/24/18 04:10 Temperature 98.3 F Pulse Rate 81 Respiratory 18 Rate Blood Pressure 110/47 L O2 Sat by Pulse 100 Oximetry (%) GENERAL: Awake, alert, and fully oriented, in no acute distress. HEAD: Normal with no signs of trauma. EYES: Pupils equal, round and reactive to light, extraocular movements intact, sclera anicteric, conjunctiva clear. No lid lag. EARS, NOSE, THROAT: Ears normal, nares patent, oropharynx clear without exudates. Moist mucous membranes. NECK: Normal range of motion, supple without lymphadenopathy, JVD, or masses. LUNGS: Breath sounds equal, clear to auscultation bilaterally. No wheezes, and no crackles. No accessory muscle use. HEART: Regular rate and rhythm, normal S1 and S2 without murmur, rub or gallop. ABDOMEN: Soft, nontender, not distended, normoactive bowel sounds, no guarding, no rebound, no masses. No hepatomegaly or splenomegaly. MUSCULOSKELETAL: Normal range of motion at all joints. No bony deformities or tenderness. No CVA tenderness. UPPER EXTREMITIES: 2+ pulses, warm, well-perfused. No cyanosis. No clubbing. No peripheral edema. LOWER EXTREMITIES: 2+ pulses, warm, well-perfused. No calf tenderness. No peripheral edema. NEUROLOGICAL: Normal speech. PSYCHIATRIC: Cooperative. Good eye contact. Appropriate mood and affect. SKIN: Warm, dry, normal turgor, no rashes or lesions noted, normal capillary refill. ASSESSMENT/PLAN: Patient is a 28 year old 4, Para 2 with past medical history of MS. She is currently 8 weeks by US performed in the ED. She presents to the ED with c/o of continuing back pain radiating to R leg that she says is secondary to her MS. She states that she is having back pain and she is worried about her vaginal bleeding Neuro: multiple sclerosis Possible exacerbation of MS. No longer on Aubagio, stopped 4 weeks ago. Now with new . Neuro consulted. MRI imaging per neuro. LATHE MECHANIC Patient on Aubagio (Teriflunamide) for MS She was on this MS med for apx 3 years and stopped when with her daughter. She resumed Aubagio and stopped 4 weeks ago and has not taken it since. Patient was to follow up with Dr. Mackey on 03/27 but came to the ED with worsening back pain and vaginal bleeding. Since she is apx 8 weeks and had recently taken Ausbagio during current , will initiate cholestiramine protocal for rapid removal of teriflunamide (teratrogenic). Protocol: cholestyramine 4g q8 x 11 days ( started 03/24/2018) OB-LATHE MECHANIC consult for vaginal bleeding and for monitoring. Ultrasound per LATHE MECHANIC Vaginal bleed/Threatened /teratogenic medication Monitor bleed, currently states bleeding is intermittent, brown blood. No cramps. follow hmg/hct daily LATHE MECHANIC following, recommendations appreciated. fen PO intake monitor electrolytes regular diet prophy scds disposition. full code. Visit type - Emergency Visit Emergency Visit: Yes ED Registration Date: 03/24/18 Care time: The patient presented to the Emergency Department on the above date and was hospitalized for further evaluation of their emergent condition. - New Patient This patient is new to me today: Yes Date on this admission: 03/25/18 - Critical Care Critical Care patient: No
[2018-03-24] MEDS: PRENATAL VITAMINS W/ FOLIC ACID TABLET (FP) PO SCH (10:21)
[2018-03-24 10:38] LABS: BASO % 0.7 % (0-2.0); EOS % 0.8 % (0-4.5); HEMATOCRIT 34.6 % (32.4-45.2); HEMOGLOBIN 11.1 GM/dL (10.7-15.3); LYMPH % 16.7 % (8-40); MCH 26.1 pg (25.7-33.7); MCHC 31.9 g/dl (32.0-36.0); MEAN CELL VOLUME 81.6 fl (80-96); MEAN PLT VOLUME 7.6 fl (7.5-11.1); MONO % 8.1 % (3.8-10.2); NEUT % 73.7 % (42.8-82.8); PLATELET COUNT 248 K/MM3 (134-434); RBC 4.25 M/mm3 (3.60-5.2); RDW 14.8 % (11.6-15.6); WHITE BLOOD COUNT 7.1 K/mm3 (4.0-10.0)
[2018-03-24 11:20] LABS: ALBUMIN 3.5 g/dl (3.4-5.0); ALK PHOS 37 U/L (45-117); ANION GAP 8 MMOL/L (8-16); BILIRUBIN,TOTAL 0.5 mg/dL (0.2-1); BLOOD UREA NITROGEN 5 mg/dL (7-18); CALCIUM 8.2 mg/dL (8.5-10.1); CHLORIDE 106 mmol/L (98-107); CO2 24 mmol/L (21-32); CREATININE 0.4 mg/dL (0.55-1.3); GLUCOSE,RANDOM 68 mg/dL (74-106); POTASSIUM 3.8 mmol/L (3.5-5.1); SGOT/AST 14 U/L (15-37); SGPT/ALT 21 U/L (13-61); SODIUM 137 mmol/L (136-145); TOT PROT 6.2 g/dl (6.4-8.2)
[2018-03-24] MEDS: ACETAMINOPHEN 325 MG TABLET (FP) PO PRN (14:31)
[2018-03-24 14:46] VITALS: BMI 25.3
--- NOTE | 2018-03-24 14:51 | CONSULT ---
Consult - text type - Consultation Consultation Note: NEUROLOGY CONSULTATION in coverage for Dr. Mackey: This 28 yo RH woman with a 7 yo son and a 2 1/2 yo daughter is now approx 8 weeks . Carries Dx of Multiple Sclerosis since her 1st , 7 years ago, when she "felt like she was walking on air." On Aubagio (Teriflunamide) x 3 yrs except "when they took it out of her systerm ) when with her daughter. Then Aubagio was resumed (14 mg) and taken daily until she "ran out" one month ago. About 2 weks ago, the sensation of "walking on air" returned. Dr. Mackey aware of . Pt has f/u scheduled for 03/27/18. Now admitted with c/o back pain and vaginal bleeding. RAHUL: Neck supple. Neg Lhermitte's. Neg SLR. In NAD NEURO: MS/Speech: Normal CN II-XII: Normal Motor: Fine sustention tremor. No drift. Normal strength , bulk tone and reflexes. Toes downgoing. Coord: No FTN dystaxia Sensory: Normal. Romberg Neg. Gait: Normal IMP: Normal neurological exam No obvious signs of sensory loss in feet. No signs of LS radiculopathy SUGGEST: Begin Cholestiramine protocal for rapid removal of teriflunamide ( teratogenic in mice). OB-WEB CONTENT PRODUCER consult for vaginal bleeding. Dr. Mackey to resume care on Monday. Thank you very much, Stanley Medel MD
--- NOTE | 2018-03-24 19:23 | CON.OBG ---
Consult Consult Specialty:: ENAMEL MACHINE OPERATOR Reason for Consultation:: Vaginal bleeding - History of Present Illness Chief Complaint: Vaginal spotting History of Present Illness: This 28 yo with personal h/o multiple sclerosis, presented to ER c/o vaginal bleeding associated with abdominal pain. She is now approx 8 weeks ; EDC 10/21/18. is desired. She's on Aubagio (Teriflunamide) x 3 yrs except "when they took it out of her system) when with her daughter. Then Aubagio was resumed (14 mg) and taken daily until she "ran out" one month ago. About 2 weks ago, the sensation of "walking on air" returned. Dr. Mackey aware of . Pt has f/u scheduled for 03/27/18. 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 she states she is diagnosed MS at age 20 yrs, iyr after her delivery . she was given steroids & then injections when non but during pregn all the meds were stopped), Syncope (past h/o syncope , seen in er), Other (no c/o headche). No: Seizure Gastrointestinal: Yes: Other (vomitting, ruq pain .). No: GERD ...LMP: 10/08/14 ...: Yes ...Para: 2 Infectious Disease: Yes: Other (declines) Psych: Yes: Anxiety Musculoskeletal: Yes: Other (MS) - Past Surgical History Past Surgical History: Yes: (2008) - Alcohol/Substance Use Hx Alcohol Use: Yes History of Substance Use: reports: None - Smoking History Smoking history: Never smoked Have you smoked in the past 12 months: No Aproximately how many cigarettes per day: 0 Home Medications - Allergies Allergies/Adverse Reactions: Allergies Allergy/AdvReac Type Severity Reaction Status Date / Time latex Allergy Verified 03/24/18 04:36 - Home Medications Home Medications: Ambulatory Orders Teriflunomide [Aubagio] 14 mg PO ASDIR 09/16/15 105/Iron/Folic AC/Dha [Prena1 True Combo Pack] 1 each PO ONCE 30 Days # 30 combo..pkg MDD 1 tab 03/03/18 Review of Systems - Review of Systems Constitutional: reports: No Symptoms Eyes: reports: No Symptoms HENT: reports: No Symptoms Neck: reports: No Symptoms Cardiovascular: reports: No Symptoms Respiratory: reports: No Symptoms Gastrointestinal: reports: No Symptoms Genitourinary: reports: Vaginal Bleeding Breasts: reports: No Symptoms Reported Musculoskeletal: reports: No Symptoms Integumentary: reports: No Symptoms Endocrine: reports: No Symptoms Hematology/Lymphatic: reports: No Symptoms Psychiatric: reports: No Symptoms Pain Intensity: 2 Physical Exam-ENAMEL MACHINE OPERATOR Vital Signs: Vital Signs Temperature 98.3 F 03/24/18 14:40 Pulse Rate 91 H 03/24/18 14:40 Respiratory Rate 20 03/24/18 14:40 Blood Pressure 113/66 03/24/18 14:40 O2 Sat by Pulse Oximetry (%) 99 03/24/18 15:00 Constitutional: Yes: No Distress Eyes: Yes: Conjunctiva Clear HENT: Yes: Atraumatic Neck: Yes: Supple Cardiovascular: Yes: Regular Rate and Rhythm Respiratory: Yes: Regular Gastrointestinal: Yes: Normal Bowel Sounds External Genitalia: Yes: Normal Vaginal Exam: Yes: Other (Bloody discharge) Cervix: Yes: Normal Uterus: No: Tender Breast(s): Yes: WNL Musculoskeletal: Yes: WNL Extremities: Yes: WNL Psychiatric: Yes: Alert, Oriented Labs: CBC, BMP 03/24/18 10:20 03/24/18 10:20 Problem List - Problems (1) Vaginal spotting Code(s): N93.9 - ABNORMAL UTERINE AND VAGINAL BLEEDING, UNSPECIFIED (2) Spotting affecting in first trimester Code(s): O26.851 - SPOTTING COMPLICATING , FIRST TRIMESTER Assessment/Plan Vaginal spotting in 8 weeks gestation F/U transvaginal sonogram Pelvic rest vitamins Continue observation F/U for care as outpatient
[2018-03-24] MEDS: CHOLESTYRAMINE/ASPARTAME 4 GM PACKET PO SCH (21:49)
[2018-03-25] MEDS: CHOLESTYRAMINE/ASPARTAME 4 GM PACKET PO SCH ×3 (06:42→21:21)
[2018-03-25] MEDS ORDERED: PT OWN MED DRAWER 7, Y5N ONE (09:48)
[2018-03-25] MEDS: PRENATAL VITAMINS W/ FOLIC ACID TABLET (FP) PO SCH (09:59)
[2018-03-25 10:08] LABS: BASO % 0.6 % (0-2.0); EOS % 0.5 % (0-4.5); HEMATOCRIT 35.2 % (32.4-45.2); HEMOGLOBIN 11.2 GM/dL (10.7-15.3); LYMPH % 16.3 % (8-40); MCH 25.9 pg (25.7-33.7); MCHC 31.8 g/dl (32.0-36.0); MEAN CELL VOLUME 81.4 fl (80-96); MEAN PLT VOLUME 7.7 fl (7.5-11.1); MONO % 5.3 % (3.8-10.2); NEUT % 77.3 % (42.8-82.8); PLATELET COUNT 249 K/MM3 (134-434); RBC 4.32 M/mm3 (3.60-5.2); RDW 14.2 % (11.6-15.6); WHITE BLOOD COUNT 7.1 K/mm3 (4.0-10.0)
[2018-03-25 10:42] LABS: ALBUMIN 3.6 g/dl (3.4-5.0); ALK PHOS 38 U/L (45-117); ANION GAP 10 MMOL/L (8-16); BILIRUBIN,TOTAL 0.6 mg/dL (0.2-1); BLOOD UREA NITROGEN 7 mg/dL (7-18); CALCIUM 8.4 mg/dL (8.5-10.1); CHLORIDE 106 mmol/L (98-107); CO2 24 mmol/L (21-32); CREATININE 0.6 mg/dL (0.55-1.3); GLUCOSE,RANDOM 88 mg/dL (74-106); MAGNESIUM 1.8 mg/dL (1.8-2.4); POTASSIUM 3.7 mmol/L (3.5-5.1); SGOT/AST 15 U/L (15-37); SGPT/ALT 20 U/L (13-61); SODIUM 139 mmol/L (136-145); TOT PROT 6.5 g/dl (6.4-8.2)
--- NOTE | 2018-03-25 14:37 | PN ---
Physical Exam: SUBJECTIVE: Patient seen and examined at the bedside, feels well. States she is having minimal vaginal bleeding. OBJECTIVE: Vital Signs Period Temp Pulse Resp BP Sys/Frazier Pulse Ox Last 24 Hr 97.8 F-98.3 F 87-94 18-20 105-117/53-69 99-99 GENERAL: Awake, alert, and fully oriented, in no acute distress. HEAD: Normal with no signs of trauma. EYES: Pupils equal, round and reactive to light, extraocular movements intact, sclera anicteric, conjunctiva clear. No lid lag. EARS, NOSE, THROAT: Ears normal, nares patent, oropharynx clear without exudates. Moist mucous membranes. NECK: Normal range of motion, supple without lymphadenopathy, JVD, or masses. LUNGS: Breath sounds equal, clear to auscultation bilaterally. No wheezes, and no crackles. No accessory muscle use. HEART: Regular rate and rhythm, normal S1 and S2 without murmur, rub or gallop. ABDOMEN: Soft, nontender, not distended, normoactive bowel sounds, no guarding, no rebound, no masses. No hepatomegaly or splenomegaly. MUSCULOSKELETAL: Normal range of motion at all joints. No bony deformities or tenderness. No CVA tenderness. UPPER EXTREMITIES: 2+ pulses, warm, well-perfused. No cyanosis. No clubbing. No peripheral edema. LOWER EXTREMITIES: 2+ pulses, warm, well-perfused. No calf tenderness. No peripheral edema. NEUROLOGICAL: Normal speech. PSYCHIATRIC: Cooperative. Good eye contact. Appropriate mood and affect. SKIN: Warm, dry, normal turgor, no rashes or lesions noted, normal capillary refill. Laboratory Results - last 24 hr 03/25/18 03/25/18 09:15 09:15 WBC 7.1 RBC 4.32 Hgb 11.2 Hct 35.2 MCV 81.4 MCH 25.9 MCHC 31.8 L RDW 14.2 Plt Count 249 MPV 7.7 Absolute Neuts (auto) 5.5 Neutrophils % 77.3 Lymphocytes % 16.3 Monocytes % 5.3 Eosinophils % 0.5 Basophils % 0.6 Nucleated RBC % 0 Sodium 139 Potassium 3.7 Chloride 106 Carbon Dioxide 24 Anion Gap 10 BUN 7 Creatinine 0.6 Creat Clearance w eGFR > 60 Random Glucose 88 Calcium 8.4 L Magnesium 1.8 Total Bilirubin 0.6 AST 15 ALT 20 Alkaline Phosphatase 38 L Total Protein 6.5 Albumin 3.6 Active Medications Generic Name Dose Route Start Last Admin Trade Name Isabella PRN Reason Stop Dose Admin Acetaminophen 650 mg 03/24/18 09:08 03/24/18 14:31 Tylenol - PO 650 mg Q6H PRN Administration PAIN LEVEL 7 - 10 Cholestyramine Resin 4 gm 03/24/18 22:00 03/25/18 14:14 Questran Light Packet - PO 4 gm TID CARLTON Administration Multivit/Folic Acid/Iron 1 tab 03/24/18 10:00 03/25/18 09:59 Vitamins (Sjr) - PO 1 tab DAILY CARLTON Administration ASSESSMENT/PLAN: Patient is a 28 year old 4, Para 2 with past medical history of MS. She is currently 8 weeks by US performed in the ED. She presents to the ED with c/o of continuing back pain radiating to R leg that she says is secondary to her MS. She states that she is having back pain and she is worried about her vaginal bleeding. Patient on Aubagio (Teriflunamide) for MS for approximately 3 years and stopped when with her daughter. She resumed Aubagio for MS and stopped 4 weeks ago and has not taken it since. Patient was to follow up with Dr. Mackey on 03/27 but came to the ED with worsening back pain and vaginal bleeding. Imaging: vaginal ultrasound 03/25/2018: single, live intrauterine of 8 weeks,6 days gestational age with subchorionic bleed. Neuro: Multiple sclerosis, now with back pain, right leg weakness. Possible exacerbation of MS, states she is having difficulty walking. She is no longer on Aubagio, stopped 4 weeks ago after she ran out of the medication. Now with new . Per ultrasound, patient is 8 weeks along. beta hcg >200 ,000 Neuro consulted and following UNARMED SECURITY GUARD Vaginal bleed/Threatened /teratogenic medication Patient on Aubagio (Teriflunamide) for MS. She was on this MS med for apx 3 years and stopped when with her daughter. She resumed Aubagio and stopped 4 weeks ago and has not taken it since. Patient was to follow up with Dr. Mackey on 03/27 but came to the ED with worsening back pain and vaginal bleeding. Since she is apx 8 weeks and had recently taken Ausbagio during current , will initiate cholestiramine protocal for rapid removal of teriflunamide (teratrogenic). Protocol: cholestyramine 4g q8 x 11 days (first dose started 03/24/2018) OB-UNARMED SECURITY GUARD consult for vaginal bleeding and for monitoring. Ultrasound per UNARMED SECURITY GUARD Monitor bleed, currently states bleeding is intermittent, brown blood. No cramps. follow hmg/hct daily UNARMED SECURITY GUARD following, recommendations appreciated. fen PO intake monitor electrolytes regular diet prophy scds Visit type - Emergency Visit Emergency Visit: Yes ED Registration Date: 03/24/18 Care time: The patient presented to the Emergency Department on the above date and was hospitalized for further evaluation of their emergent condition. - New Patient This patient is new to me today: No - Critical Care Critical Care patient: No - Discharge Referral Referred to [facility] No
[2018-03-26] MEDS: CHOLESTYRAMINE/ASPARTAME 4 GM PACKET PO SCH ×2 (06:37→16:43)
[2018-03-26] MEDS: ACETAMINOPHEN 325 MG TABLET (FP) PO PRN (06:49)
[2018-03-26 09:02] LABS: BASO % 0.8 % (0-2.0); EOS % 0.5 % (0-4.5); HEMATOCRIT 37.1 % (32.4-45.2); HEMOGLOBIN 11.8 GM/dL (10.7-15.3); LYMPH % 14.3 % (8-40); MCH 25.8 pg (25.7-33.7); MCHC 31.9 g/dl (32.0-36.0); MEAN CELL VOLUME 81.1 fl (80-96); MEAN PLT VOLUME 7.3 fl (7.5-11.1); MONO % 7.6 % (3.8-10.2); NEUT % 76.8 % (42.8-82.8); PLATELET COUNT 261 K/MM3 (134-434); RBC 4.58 M/mm3 (3.60-5.2); RDW 14.3 % (11.6-15.6); WHITE BLOOD COUNT 8.6 K/mm3 (4.0-10.0)
[2018-03-26 09:43] LABS: ALBUMIN 3.7 g/dl (3.4-5.0); ALK PHOS 41 U/L (45-117); ANION GAP 7 MMOL/L (8-16); BILIRUBIN,TOTAL 0.5 mg/dL (0.2-1); BLOOD UREA NITROGEN 7 mg/dL (7-18); CALCIUM 8.6 mg/dL (8.5-10.1); CHLORIDE 106 mmol/L (98-107); CO2 24 mmol/L (21-32); CREATININE 0.5 mg/dL (0.55-1.3); GLUCOSE,RANDOM 76 mg/dL (74-106); MAGNESIUM 1.9 mg/dL (1.8-2.4); POTASSIUM 3.9 mmol/L (3.5-5.1); SGOT/AST 9 U/L (15-37); SGPT/ALT 18 U/L (13-61); SODIUM 137 mmol/L (136-145); TOT PROT 6.8 g/dl (6.4-8.2)
--- NOTE | 2018-03-26 10:10 | PN ---
Progress Note (short form) - Note Progress Note: Neurology 28 yo RH woman with a 7 yo son and a 2 1/2 yo daughter is now approx [address] weeks [address] Dr[address] Medel over weekend for Multiple Sclerosis. On Aubagio ( Teriflunamide) x 3 yrs though self discontinued medication. Has missed appts in office as well. Reportedly with feeling of "walking on air" sensation which occured at time of initial diagnosis. Patient was not aware that she's until this admission. Aubagio being reveresed with cholestiramine protocal. Pt has f/u scheduled for 03/27/18 in office. Admitted with c/o back pain and vaginal bleeding. Is ambulating and no focal deficits. Stable appearing, getting tylenol for back pain. Ob note reviewed. Dr. Medel note reviewed. Discussed with primary. Active Medications Acetaminophen (Tylenol -) 650 mg PO Q6H PRN PRN Reason: PAIN LEVEL 7 - 10 Last Admin: 03/26/18 06:49 Dose: 650 mg Cholestyramine Resin (Questran Light Packet -) 4 gm PO TID CARLTON Last Admin: 03/26/18 06:37 Dose: 4 gm Multivit/Folic Acid/Iron ( Vitamins (Sjr) -) 1 tab PO DAILY CARLTON Last Admin: 03/25/18 09:59 Dose: 1 tab Vital Signs Period Temp Pulse Resp BP Sys/Frazier Pulse Ox Last 24 Hr 98 F-98.9 F 80-97 18-20 100-115/55-70 Gen: Awake, alert, responds to questions Card: RRR, nml S1,S2 Resp: Normal symmetric effort, lungs clear to auscultation Abdomen: Soft, nontender, bowel sounds active Musculoskeletal: Adequate range of motion without significant deformity Head atraumatic and normocephalic CN: PERRL, EOMI intact, no apparent facial droop, no abnormalities in facial sensation, palate elevates, uvula and tongue midline Motor: Full strength to confrontation in upper and lower extermities proximally and distally. Tone normal throughout Sensory: Intact to Temperature, light touch, and pinprick Reflexes: 2+ biceps, brachioradialis, patellar, achillies Coordination: Intact on [id number] testing Gait: Normal, able to ambulate on toes and heels. CBCD WBC 8.6 K/mm3 (4.0-10.0) 03/26/18 08:33 RBC 4.58 M/mm3 (3.60-5.2) 03/26/18 08:33 Hgb 11.8 GM/dL (10.7-15.3) 03/26/18 08:33 Hct 37.1 % (32.4-45.2) 03/26/18 08:33 MCV 81.1 fl (80-96) 03/26/18 08:33 MCHC 31.9 g/dl (32.0-36.0) L 03/26/18 08:33 RDW 14.3 % (11.6-15.6) 03/26/18 08:33 Plt Count 261 K/MM3 (134-434) 03/26/18 08:33 MPV 7.3 fl (7.5-11.1) L 03/26/18 08:33 CMP Sodium 137 mmol/L (136-145) 03/26/18 08:33 Potassium 3.9 mmol/L (3.5-5.1) 03/26/18 08:33 Chloride 106 mmol/L (98-107) 03/26/18 08:33 Carbon Dioxide 24 mmol/L (21-32) 03/26/18 08:33 Anion Gap 7 MMOL/L (8-16) L 03/26/18 08:33 BUN 7 mg/dL (7-18) 03/26/18 08:33 Creatinine 0.5 mg/dL (0.55-1.3) L 03/26/18 08:33 Creat Clearance w eGFR > 60 (>60) 03/26/18 08:33 Random Glucose 76 mg/dL (74-106) 03/26/18 08:33 Calcium 8.6 mg/dL (8.5-10.1) 03/26/18 08:33 Total Bilirubin 0.5 mg/dL (0.2-1) 03/26/18 08:33 AST 9 U/L (15-37) L 03/26/18 08:33 ALT 18 U/L (13-61) 03/26/18 08:33 Alkaline Phosphatase 41 U/L (45-117) L 03/26/18 08:33 Total Protein 6.8 g/dl (6.4-8.2) 03/26/18 08:33 Albumin 3.7 g/dl (3.4-5.0) 03/26/18 08:33 Plan: 28 yo RH woman with a 7 yo son and a 2 1/2 yo daughter is now approx [address] Dr[address] Medel over weekend for Multiple Sclerosis. On Aubagio ( Teriflunamide) x 3 yrs though self discontinued medication. Has missed appts in office as well. Reportedly with feeling of "walking on air" sensation which occured at time of initial diagnosis. Patient was not aware that she's until this admission. Aubagio being reveresed with cholestiramine protocal. Pt has f/u scheduled for 03/27/18 in office. Admitted with c/o back pain and vaginal bleeding. Is ambulating and no focal deficits. Stable appearing, getting tylenol for back pain. Ob note reviewed. Dr. Medel note reviewed. Discussed with primary. Will not pursue further imaging and neurologically stable. Advised not to restart Aubagio. Advised to keep office appt. Advised to avoid NSAIDS for low back pain. Conservative care with heat pads, cold compresses. Patient in agreement and aware.
[2018-03-26] MEDS ORDERED: PT OWN MED DRAWER 7, Y5N ONE (10:37)
[2018-03-26] MEDS: PRENATAL VITAMINS W/ FOLIC ACID TABLET (FP) PO SCH (10:39)
--- NOTE | 2018-03-26 11:04 | DS ---
Physical Exam: SUBJECTIVE: Patient seen and examined at the bedside. Denies abdominal pain, denies further vaginal bleeding. Ambulated with Dr. Mackey earlier today, steady gait. OBJECTIVE: discussed findings/results of vaginal ultrasound with Dr. Jordan. As per Dr. Jordan, patient can be discharged with outpatient follow up. Vital Signs Period Temp Pulse Resp BP Sys/Frazier Pulse Ox Last 24 Hr 98 F-98.9 F 80-97 18-20 100-115/55-70 PHYSICAL EXAM GENERAL: The patient is awake, alert, and fully oriented, in no acute distress. HEAD: Normal with no signs of trauma. EYES: PERRL, extraocular movements intact, sclera anicteric, conjunctiva clear. ENT: Ears normal, nares patent, oropharynx clear without exudates, moist mucous membranes. NECK: Trachea midline, full range of motion, supple. LUNGS: Breath sounds equal, clear to auscultation bilaterally, no wheezes, no crackles, no accessory muscle use. HEART: Regular rate and rhythm, S1, S2 without murmur, rub or gallop. ABDOMEN: Soft, nontender, nondistended, normoactive bowel sounds, no guarding, no rebound, no hepatosplenomegaly, no masses. EXTREMITIES: 2+ pulses, warm, well-perfused, no edema. NEUROLOGICAL: Cranial nerves II through XII grossly intact. Normal speech, gait not observed. PSYCH: Normal mood, normal affect. SKIN: Warm, dry, normal turgor, no rashes or lesions noted. LABS Laboratory Results - last 24 hr 03/26/18 03/26/18 08:33 08:33 WBC 8.6 RBC 4.58 Hgb 11.8 Hct 37.1 MCV 81.1 MCH 25.8 MCHC 31.9 L RDW 14.3 Plt Count 261 MPV 7.3 L Absolute Neuts (auto) 6.6 Neutrophils % 76.8 Lymphocytes % 14.3 Monocytes % 7.6 Eosinophils % 0.5 Basophils % 0.8 Nucleated RBC % 0 Sodium 137 Potassium 3.9 Chloride 106 Carbon Dioxide 24 Anion Gap 7 L BUN 7 Creatinine 0.5 L Creat Clearance w eGFR > 60 Random Glucose 76 Calcium 8.6 Magnesium 1.9 Total Bilirubin 0.5 AST 9 L ALT 18 Alkaline Phosphatase 41 L Total Protein 6.8 Albumin 3.7 HOSPITAL COURSE: Date of Admission:03/24/18 Date of Discharge: 03/26/18 Patient is a 28 year old 4, Para 2 with past medical history of MS. She is currently 8 weeks by US performed in the ED. She presents to the ED with c/o of continuing back pain radiating to R leg that she says is secondary to her MS. She states that she is having back pain and she is worried about her vaginal bleeding. Patient on Aubagio (Teriflunamide) for MS for approximately 3 years and stopped when with her daughter. She resumed Aubagio for MS and stopped 4 weeks ago and has not taken it since. Patient was to follow up with Dr. Mackey on 03/27 but came to the ED with worsening back pain and vaginal bleeding. Imaging: vaginal ultrasound 03/25/2018: single, live intrauterine of 8 weeks,6 days gestational age with subchorionic bleed. Neuro: Multiple sclerosis Seen by neuro, no MRI imaging needed. Patient ambulated without assistance, gait steady. Neuro consulted and follow up outpatient. COMMISSIONER OF CONCILIATION Vaginal bleed/Threatened /teratogenic medication Patient on Aubagio (Teriflunamide) for MS. She was on this MS med for apx 3 years and stopped when with her daughter. She resumed Aubagio and stopped 4 weeks ago and has not taken it since. Patient was to follow up with Dr. Mackey on 03/27 but came to the ED with worsening back pain and vaginal bleeding. Since she is apx 8 weeks and had recently taken Ausbagio during current , will initiate cholestiramine protocal for rapid removal of teriflunamide (teratrogenic). Protocol: cholestyramine 4g q8 x 11 days (first dose started 03/24/2018) OB-COMMISSIONER OF CONCILIATION consult for vaginal bleeding and for monitoring. Ultrasound results discussed with Dr. Jordan, patient to follow up outpatient. Minutes to complete discharge: 60 Discharge Summary Reason For Visit: THREATEND /MULTIPLE SCLEROSIS Current Active Problems Multiple sclerosis (Acute) Spotting affecting in first trimester (Acute) Threatened miscarriage (Acute) Vaginal spotting (Acute) Condition: Improved - Instructions Diet, Activity, Other Instructions: Mrs Batista. You were admitted for vaginal bleed and for possible exacerbation of your MS. You will be discharged home today. It is VERY IMPORTANT that you DO NOT take the Aubagio while you are or breast feeding. Please follow up with Dr. Mackey for alternate safe medications. Since you have taken this medication recently, we have to clear it from your system. We have prescribed a medication called CHOLESTIRAMINE. Here is how you will be taking the medication at home. CHOLESTIRAMINE 4grams Take three times per day at 8am, 12pm and 8pm. Take this medication three times per day until April 05, which will complete the required 11 day course. We have started you on this regimen in the hospital. Please see your RETAIL SALES ASSOCIATE physician for follow up and for monitoring. Thank you for allowing us to care for you. Isatu Saeed [place] HOME DECORATOR [phone] [facility] Referrals: Azeb Jordan MD [Staff Physician] - Dwain Tejada [Primary Care Provider] - Disposition: HOME - Home Medications Comprehensive Discharge Medication List: Ambulatory Orders 105/Iron/Folic AC/Dha [Prena1 True Combo Pack] 1 each PO ONCE 30 Days # 30 combo..pkg MDD 1 tab 03/03/18 Acetaminophen [Tylenol .Regular Strength -] 650 mg PO Q6H PRN tablet 03/26/18 Cholestyramine/Aspartame [Questran Light Packet -] 4 gm PO TID #30 packet Vitamins (Sjr) - 1 tab PO DAILY tablet 03/26/18 This patient is new to me today: Yes Date on this admission: 03/26/18 Emergency Visit: No Critical Care patient: No - Discharge Referral Referred to [facility] No
[2018-03-26 16:13] VITALS: BP 102/59; PULSE 95; TEMP 98.3
== END 2018-03-26 17:34 | disposition home or self-care (01) ==
LOC: JER 04:04 → JERBED 07:22 → J8W 13:17
PROVIDERS: ADMIT Internal Medicine; ATTEND Nurse Practitioner Family
PROC: 3E033NZ Introduction of Analgesics, Hypnotics, Sedatives into Peripheral Vein, Percutaneous Approach (ICD-10-PCS; principal; 2018-03-24)
DX: O20.0 Threatened abortion (principal); O26.851 Spotting complicating pregnancy, first trimester; N93.9 Abnormal uterine and vaginal bleeding, unspecified; G35 Multiple sclerosis; Z3A.08 8 weeks gestation of pregnancy
CPT/HCPCS: 36415; 76801-TC; 80053; 83735; 84702; 85025; 86850; 86900; 86901; 96374; 97161-GP; 99282-25; G0378; J0131

== ENCOUNTER 2018-05-06 10:34 | Emergency (ER) | payer OTHER ==
--- NOTE | 2018-05-06 10:46 | PDOC ---
History of Present Illness - General Stated Complaint: FELL/17WKS - History of Present Illness Initial Comments: The patient is a 28F at 14w by US and history of MS who presents for evaluation s/p fall from standing yesterday. The patient reports experiencing a mechanical fall yesterday on concrete. She states she fell forward and caught herself on her hands/forearms. She denies hitting her head or LOC. She states that she has had R ankle/foot pain since that time. She reports being able to ambulate immediately afterwards and has ambulated today. She denies taking anything for pain. She only reports taking her vitamins. 05/06/18 11:05 Past History - Past Medical History Allergies/Adverse Reactions: Allergies Allergy/AdvReac Type Severity Reaction Status Date / Time latex Allergy Verified 03/24/18 04:36 Home Medications: Ambulatory Orders 105/Iron/Folic AC/Dha [Prena1 True Combo Pack] 1 each PO ONCE 30 Days # 30 combo..pkg MDD 1 tab 03/03/18 Acetaminophen [Tylenol .Regular Strength -] 650 mg PO Q6H PRN tablet 03/26/18 Cholestyramine/Aspartame [Questran Light Packet -] 4 gm PO TID #30 packet Vitamins (Sjr) - 1 tab PO DAILY tablet 03/26/18 Acetaminophen [Tylenol] 325 mg PO QID PRN #80 capsule 05/06/18 Anemia: Yes COPD: No DVT: No Psychiatric Problems: Yes (BIPOLAR.) - Surgical History Abdominal Surgery: Yes - Reproductive History (#): 4 Para: 1 Therapeutic (s) & number: Yes (2) Spontaneous : 1 - Immunization History Immunization Up to Date: Yes - Suicide/Smoking/Psychosocial Hx Smoking Status: No Smoking History: Never smoked Have you smoked in the past 12 months: No Number of Cigarettes Smoked Daily: 0 Information on smoking cessation initiated: No Hx Alcohol Use: No Drug/Substance Use Hx: Yes (PEARL) Substance Use Type: None Hx Substance Use Treatment: No Review of Systems - Review of Systems Able to Perform ROS?: Yes Comments:: GENERAL/CONSTITUTIONAL: No fever or chills. HEAD, EYES, EARS, NOSE AND THROAT: No change in vision. No ear pain or discharge. No sore throat CARDIOVASCULAR: +breast pain; denies shortness of breath GASTROINTESTINAL: No nausea, vomiting, diarrhea or constipation GENITOURINARY: No dysuria, frequency, or change in urination MUSCULOSKELETAL: +chronic pain 2/2 MS; endorses R foot/ankle pain SKIN: No rash NEUROLOGIC: +chronic ESTRADA, +MS; Denies vertigo, loss of consciousness, or change in strength/sensation ENDOCRINE: No increased thirst. No abnormal weight change HEMATOLOGIC/LYMPHATIC: No anemia, easy bleeding, or history of blood clots ALLERGIC/IMMUNOLOGIC: No hives or skin allergy 05/06/18 11:22 Is the patient limited Botswanan proficient: No *Physical Exam - Vital Signs Last Vital Signs Temp Pulse Resp BP Pulse Ox 97.8 F 91 H 20 106/61 99 05/06/18 10:39 05/06/18 10:39 05/06/18 10:39 05/06/18 10:39 05/06/18 10:39 - Physical Exam Comments: GENERAL: Awake, alert, in no acute distress HEAD: No signs of trauma, normocephalic, atraumatic EYES: PERRLA, EOMI, sclera anicteric, conjunctiva clear ENT: Hearing grossly normal, nares patent, oropharynx clear without exudates. Moist mucosa LUNGS: No distress, speaks full sentences, clear to auscultation bilaterally HEART: Regular rate and rhythm, normal S1 and S2, no murmurs appreciated, peripheral pulses normal and equal bilaterally ABDOMEN: Soft, mild generalized TTP that is reported as chronic and less when distracted, normoactive bowel sounds. No guarding, no rebound EXTREMITIES : R ankle b/l malleoli TTP, generalized foot/ankle pain. Ambulating w/o issue in ED. Neurovascularly intact. Normal range of motion, no edema. No clubbing or cyanosis NEUROLOGICAL: Cranial nerves II through XII grossly intact. Normal speech, normal gait, no focal sensorimotor deficits SKIN: Warm, Dry, normal turgor, no rashes or lesions noted 05/06/18 11:22 Moderate Sedation - Procedure Monitoring Vital Signs: Procedure Monitoring Vital Signs Temperature 97.8 F 05/06/18 10:39 Pulse Rate 91 H 05/06/18 10:39 Respiratory Rate 20 05/06/18 10:39 Blood Pressure 106/61 05/06/18 10:39 O2 Sat by Pulse Oximetry (%) 99 05/06/18 10:39 ED Treatment Course - LABORATORY CBC & Chemistry Diagram: 05/06/18 11:35 05/06/18 11:35 Medical Decision Making - Medical Decision Making The patient is a 28F who presents for evaluation s/p fall from standing yesterday w/ head injury, LOC, and denies falling on stomach. Endorses R ankle/ foot pain. Patient giving inconsistent history with tangential/circumferential speech; Strong scent of marijuana in room. ED Course CMP, CBC, UA, Utox R foot/ankle XR 05/06/18 11:26 UA w/o evidence of UTI 05/06/18 11:58 UDS neg 05/06/18 12:05 XR neg for fx/dislocation 05/06/18 12:29 Pain improved Rx for Tylenol sent to pt's pharmacy discharge instructions and return precautions given Plan for D/C w/ PCP f/u Patient in agreement and verbalized understanding Dispo: Home 05/06/18 13:04 *DC/Admit/Observation/Transfer Diagnosis at time of Disposition: Right ankle pain Qualifiers: Chronicity: acute Qualified Code(s): M25.571 - Pain in right ankle and joints of right foot Fall from standing Qualifiers: Encounter type: initial encounter Qualified Code(s): W19.XXXA - Unspecified fall, initial encounter Qualifiers: Weeks of gestation: 14 weeks Qualified Code(s): Z3A.14 - 14 weeks gestation of - Discharge Dispostion Disposition: HOME Condition at time of disposition: Stable Decision to Admit order: No - Prescriptions Prescriptions: Acetaminophen [Tylenol] 325 mg PO QID PRN #80 capsule PRN Reason: Pain - Referrals Referrals: Azeb Jordan MD [Staff Physician] - - Patient Instructions Printed Discharge Instructions: How to Prevent Falls Additional Instructions: You were seen in the Emergency Department today for right ankle pain after falling yesterday. You x-ray was negative for fracture. Review the handouts provided at discharge. Follow up with you primary care provider, OB, and neurologist. Return to the Emergency Department if you develop fevers/chills, trouble breathing, chest pain, vision changes, worsening symptoms, or new/ concerning symptoms. - Post Discharge Activity
[2018-05-06 11:03] VITALS: BP 106/61; PULSE 91; TEMP 97.8; BMI 24.7
[2018-05-06] MEDS ORDERED: BENZOCAINE 20 % GEL TUBE MM ONE (11:05)
[2018-05-06] MEDS ORDERED: ACETAMINOPHEN 325 MG TABLET (FP) PO ONE (11:09)
[2018-05-06] MEDS ORDERED: ACETAMINOPHEN 325 MG TABLET (FP) ONE (11:10)
[2018-05-06 11:53] LABS: URINE APPEARANCE CLOUDY; URINE BILIRUBIN NEGATIVE (<2.0 mg/dL); URINE COLOR DKYELLOW; URINE GLUCOSE (UA) NEGATIVE (NEGATIVE); URINE KETONE NEGATIVE (NEGATIVE); URINE LEUK ESTERASE NEGATIVE (NEGATIVE); URINE NITRITE NEGATIVE (NEGATIVE); URINE PROTEIN NEGATIVE (NEGATIVE); URINE UROBILINOGEN NEGATIVE mg/dL (0.2-1.0)
--- NOTE | 2018-05-06 11:58 | PDOC ---
Attending Attestation - Resident Resident Name: Naveed Burns - ED Attending Attestation I have performed the following: I have examined & evaluated the patient, The case was reviewed & discussed with the resident, I agree w/resident's findings & plan - HPI HPI: 05/06/18 12:43 28YOF 14 weeks , with a significant past medical history of MS, who presents to the emergency department s/p mechanical fall with, right ankle pain. She notes she fell forward onto concrete hurting her right ankle. Patient was able to ambulate She denies any LOC or trauma to her head/neck. She denies recent fevers, chills , headache or dizziness. She denies recent nausea, vomit, diarrhea or constipation. She denies recent dysuria, frequency, urgency or hematuria. She denies recent chest pain or shortness of breath. Allergies: Latex. - Physicial Exam PE: 05/06/18 12:43 NAD, well appearing, PERRL, EOMI, MMM, nl conjunctiva, anicteric; neck supple. lungs clear, RRR, abdomen soft nontender. COCHRAN x4, no focal neuro deficits. No peripheral edema. normal color for ethnicity, WWP. NVI. mild TTP to right medial malleolus, but gait stable, ambulatory. - Medical Decision Making 05/06/18 11:58 see HPI for details. 28F at 14w by US and history of MS who presents for evaluation s/p fall from standing yesterday. c/o bilateral ankle/foot pain, but able to ambulate also c/o intermittent dizziness and general body aches. Vitals wnl. Labs and lytes normal. UA neg for infection. No AP or VB, so doubt complication. doubt internal injuries, no respiratory and minimal Abdominal sx. Utox neg. XR foot and ankles bilaterally neg for fx, arthritic changes noted. Reassuringly , has been ambulating, likely sprain sx not suggestive of MS flare. no neuro deficits here tolerating PO lunch at bedside, gait has been stable. well appearing, Dispo: DC in stable condition 05/06/18 12:45 05/06/18 12:46
[2018-05-06 12:04] LABS: COCAINE, UR NEGATIVE ng/ml (CUTOFF=300); METHADONE, UR NEGATIVE ng/ml (CUTOFF=300); OPIATES, URI NEGATIVE ng/ml (CUTOFF=300); PHENCYCLIDINE,URINE NEGATIVE ng/ml (CUTOFF=25); URINE AMPHETAMINES NEGATIVE ng/ml (CUTOFF=500); URINE BARBITURATES NEGATIVE ng/ml (CUTOFF=200); URINE BENZODIAZEPINES NEGATIVE ng/ml (CUTOFF=200)
[2018-05-06 12:28] LABS: ALBUMIN 3.5 g/dl (3.4-5.0); ALK PHOS 48 U/L (45-117); ANION GAP 7 MMOL/L (8-16); BILIRUBIN,TOTAL 0.4 mg/dL (0.2-1); BLOOD UREA NITROGEN 5 mg/dL (7-18); CALCIUM 8.5 mg/dL (8.5-10.1); CHLORIDE 101 mmol/L (98-107); CO2 28 mmol/L (21-32); CREATININE 0.5 mg/dL (0.55-1.3); GLUCOSE,RANDOM 74 mg/dL (74-106); POTASSIUM 3.5 mmol/L (3.5-5.1); SGOT/AST 20 U/L (15-37); SGPT/ALT 17 U/L (13-61); SODIUM 136 mmol/L (136-145); TOT PROT 6.7 g/dl (6.4-8.2)
[2018-05-06 12:50] LABS: HEMATOCRIT 35.9 % (32.4-45.2); HEMOGLOBIN 12.2 GM/dL (10.7-15.3); MCH 27.8 pg (25.7-33.7); MCHC 33.9 g/dl (32.0-36.0); MEAN CELL VOLUME 81.9 fl (80-96); PLATELET COUNT 231 K/MM3 (134-434); RBC 4.38 M/mm3 (3.60-5.2); RDW 14.8 % (11.6-15.6); WHITE BLOOD COUNT 8.4 K/mm3 (4.0-10.0)
== END 2018-05-06 13:21 | disposition home or self-care (01) ==
LOC: JER 10:34
DX: O26.891 Other specified pregnancy related conditions, first trimester (principal); Z3A.14 14 weeks gestation of pregnancy; M25.571 Pain in right ankle and joints of right foot; G35 Multiple sclerosis; F31.9 Bipolar disorder, unspecified; D64.9 Anemia, unspecified; W01.0XXA Fall on same level from slipping, tripping and stumbling without subsequent striking against object, initial encounter; Y93.89 Activity, other specified; Y92.410 Unspecified street and highway as the place of occurrence of the external cause
CPT/HCPCS: 36415; 73610-TC-RT-FY; 73630-TC-RT-FY; 80053; 80307; 81003; 85027; 99282-25

== ENCOUNTER 2018-06-07 15:51 | Emergency (ER) | payer OTHER ==
--- NOTE | 2018-06-07 16:09 | PDOC ---
Rapid Medical Evaluation Time Seen by Provider: 06/07/18 16:04 Medical Evaluation: Allergies Allergy/AdvReac Type Severity Reaction Status Date / Time latex Allergy Verified 03/24/18 04:36 06/07/18 16:04 I have performed a brief in-person evaluation of this patient. The patient presents with a chief complaint of: "I am not sure how far along I am" . LMP 10/28/17 pt denies abd pain no cramping no bleeding or discharge. denies ETOH, denies drug use. Pt with rambling speech. Pertinent physical exam findings: gravid abdomen I have ordered the following: none The patient will proceed to the ED for further evaluation. 06/07/18 16:09 06/07/18 16:11
[2018-06-07 16:12] VITALS: BP 122/56; PULSE 99; TEMP 98.2; BMI 25.9
[2018-06-07 17:35] LABS: COCAINE, UR NEGATIVE ng/ml (CUTOFF=300); METHADONE, UR NEGATIVE ng/ml (CUTOFF=300); OPIATES, URI NEGATIVE ng/ml (CUTOFF=300); PHENCYCLIDINE,URINE NEGATIVE ng/ml (CUTOFF=25); URINE AMPHETAMINES NEGATIVE ng/ml (CUTOFF=500); URINE APPEARANCE CLEAR; URINE BARBITURATES NEGATIVE ng/ml (CUTOFF=200); URINE BENZODIAZEPINES NEGATIVE ng/ml (CUTOFF=200); URINE BILIRUBIN NEGATIVE (<2.0 mg/dL); URINE COLOR LTYELLOW; URINE GLUCOSE (UA) NEGATIVE (NEGATIVE); URINE KETONE NEGATIVE (NEGATIVE); URINE LEUK ESTERASE NEGATIVE (NEGATIVE); URINE NITRITE NEGATIVE (NEGATIVE); URINE PROTEIN NEGATIVE (NEGATIVE)
--- NOTE | 2018-06-07 17:49 | PDOC ---
History of Present Illness - General Chief Complaint: ,Possible Stated Complaint: HEADACHE () Time Seen by Provider: 06/07/18 16:04 History Source: Patient Exam Limitations: Clinical Condition - History of Present Illness Initial Comments: 06/07/18 17:56 Patient with no significant past medication history unsure of last menstrual period present to check to make sure how many weeks she is. Patient reported she does not believe her SPRINKLER FITTER APPRENTICE and how many weeks she is. Patient denies any symptoms. Patient denies vaginal bleeding, abdominal pain, vomiting or any other symptoms. Past History - Past Medical History Allergies/Adverse Reactions: Allergies Allergy/AdvReac Type Severity Reaction Status Date / Time latex Allergy Verified 03/24/18 04:36 Home Medications: Ambulatory Orders 105/Iron/Folic AC/Dha [Prena1 True Combo Pack] 1 each PO ONCE 30 Days # 30 combo..pkg MDD 1 tab 03/03/18 Acetaminophen [Tylenol .Regular Strength -] 650 mg PO Q6H PRN tablet 03/26/18 Cholestyramine/Aspartame [Questran Light Packet -] 4 gm PO TID #30 packet Vitamins (Sjr) - 1 tab PO DAILY tablet 03/26/18 Acetaminophen [Tylenol] 325 mg PO QID PRN #80 capsule 05/06/18 Anemia: Yes COPD: No DVT: No Psychiatric Problems: Yes (BIPOLAR.) - Surgical History Abdominal Surgery: Yes - Reproductive History (#): 4 Para: 1 Therapeutic (s) & number: Yes (2) Spontaneous : 1 - Immunization History Immunization Up to Date: Yes - Suicide/Smoking/Psychosocial Hx Smoking Status: No Smoking History: Never smoked Have you smoked in the past 12 months: No Number of Cigarettes Smoked Daily: 0 Information on smoking cessation initiated: No Hx Alcohol Use: Yes (Occassionally) Drug/Substance Use Hx: No Substance Use Type: None Hx Substance Use Treatment: No Review of Systems - Review of Systems Able to Perform ROS?: Yes Is the patient limited Botswanan proficient: No Constitutional: No: Weakness HEENTM: No: Symptoms Reported Respiratory: No: Symptoms reported Cardiac (ROS): No: Symptoms Reported ABD/GI: No: Nausea, Vomiting, Abdominal cramping : No: Other (vaginal bleeding) All Other Systems: Reviewed and Negative *Physical Exam - Vital Signs Last Vital Signs Temp Pulse Resp BP Pulse Ox 98.2 F 99 H 20 122/56 L 100 06/07/18 16:07 06/07/18 16:07 06/07/18 16:07 06/07/18 16:07 06/07/18 16:07 - Physical Exam General Appearance: Yes: Nourished, Appropriately Dressed. No: Apparent Distress HEENT: positive: Normal ENT Inspection Neck: positive: Supple Respiratory/Chest: negative: Respiratory Distress, Accessory Muscle Use Cardiovascular: positive: Regular Rhythm, Regular Rate Gastrointestinal/Abdominal: positive: Soft, Other (18weeks gravid stomach). negative: Tender Musculoskeletal: positive: Normal Inspection Neurologic: positive: Fully Oriented, Normal Mood/Affect Moderate Sedation - Procedure Monitoring Vital Signs: Procedure Monitoring Vital Signs Temperature 98.2 F 06/07/18 16:07 Pulse Rate 99 H 06/07/18 16:07 Respiratory Rate 20 06/07/18 16:07 Blood Pressure 122/56 L 06/07/18 16:07 O2 Sat by Pulse Oximetry (%) 100 06/07/18 16:07 ED Treatment Course - ADDITIONAL ORDERS Additional order review: Laboratory Results 06/07/18 17:08 Opiates Screen Negative Methadone Screen Negative Barbiturate Screen Negative Phencyclidine Screen Negative Ur Amphetamines Screen Negative MDMA (Ecstasy) Screen Negative Benzodiazepines Screen Negative Cocaine Screen Negative U Marijuana (THC) Screen Negative Medical Decision Making - Medical Decision Making 06/07/18 18:00 Patient with no significant past medical history presenting to take for her is due to not believing her [employer]LER FITTER APPRENTICE. Patient denies any symptoms. Bedside ultrasound shows live IUP with femur length of 2.85 cm consistent with 18.5 weeks in by BPD of 4. 0.07 cm consistent with 18.2 weeks with positive heart rate. Patient advised she is 18.5 weeks consistent with what she was told by her SPRINKLER FITTER APPRENTICE. Patient advised to follow-up back with a new SPRINKLER FITTER APPRENTICE as patient just change her OB provider. *DC/Admit/Observation/Transfer Diagnosis at time of Disposition: Second trimester - Discharge Dispostion Disposition: HOME Condition at time of disposition: Stable Decision to Admit order: No - Referrals - Patient Instructions Printed Discharge Instructions: Managing Symptoms of Additional Instructions: Follow-up with your new SPRINKLER FITTER APPRENTICE as scheduled. - Post Discharge Activity
== END 2018-06-07 17:55 | disposition home or self-care (01) ==
LOC: JERFT 15:51
PROC: BY4CZZZ Ultrasonography of Second Trimester, Single Fetus (ICD-10-PCS; principal; 2018-06-07)
DX: O26.892 Other specified pregnancy related conditions, second trimester (principal); R51 Headache; Z3A.18 18 weeks gestation of pregnancy
CPT/HCPCS: 80307; 81003; 99281-25

== ENCOUNTER 2018-08-07 15:01 | Emergency (ER) | payer OTHER ==
[2018-08-07 15:16] VITALS: BP 102/45; PULSE 100; TEMP 98.3; BMI 25.9
--- NOTE | 2018-08-07 15:40 | PDOC ---
History of Present Illness - General Chief Complaint: Injury Stated Complaint: FALL/BACK PAIN Time Seen by Provider: 08/07/18 15:22 History Source: Patient Exam Limitations: No Limitations - History of Present Illness Initial Comments: 08/07/18 15:35 Slipped coming out of shower and sliding down onto her bottom and back. Incident occurred yesterday, and states had some mild tenderness to her buttocks and mid back. Came today for evaluation and has already completed monitoring which resulted with a normal, healthy exam. Came to ER reevaluated for any other traumatic issue. Patient states has no vaginal drainage, no problems with bowel or bladder. Denies knowledge of any contusion, bruising to back, or any other consequence from fall. Occurred: reports: yesterday Severity: reports: mild Pain Location: reports: back Method of Injury: Yes: fall Modifying Factors: improves with: None Loss of Consciousness: no loss of consciousness Associated Symptoms (Fall): denies symptoms Past History - Travel Traveled outside of the country in the last 30 days: No Close contact w/someone who was outside of country & ill: No - Past Medical History Allergies/Adverse Reactions: Allergies Allergy/AdvReac Type Severity Reaction Status Date / Time latex Allergy Verified 08/07/18 15:16 Home Medications: Ambulatory Orders Acetaminophen [Tylenol .Regular Strength -] 650 mg PO Q6H PRN tablet 03/26/18 Vitamins (Sjr) - 1 tab PO DAILY tablet 03/26/18 Acetaminophen [Tylenol] 650 mg PO Q6H #40 capsule 08/07/18 Anemia: Yes COPD: No DVT: No Psychiatric Problems: Yes (BIPOLAR.) - Surgical History Abdominal Surgery: Yes - Reproductive History (#): 4 Para: 1 Therapeutic (s) & number: Yes (2) Spontaneous : 1 - Immunization History Immunization Up to Date: Yes - Suicide/Smoking/Psychosocial Hx Smoking Status: No Smoking History: Smoker current status UNK Have you smoked in the past 12 months: No Number of Cigarettes Smoked Daily: 0 Hx Alcohol Use: Yes (Occassionally) Drug/Substance Use Hx: No Substance Use Type: None Hx Substance Use Treatment: No Review of Systems - Review of Systems Able to Perform ROS?: Yes Is the patient limited Syriac proficient: Yes Constitutional: Yes: Symptoms Reported, See HPI. No: Fever, Malaise HEENTM: Yes: Symptoms Reported Respiratory: Yes: See HPI. No: Symptoms reported Musculoskeletal: Yes: Symptoms Reported, See HPI, Back Pain (mild ) Neurological: Yes: Symptoms reported All Other Systems: Reviewed and Negative *Physical Exam - Vital Signs Last Vital Signs Temp Pulse Resp BP Pulse Ox 98.3 F 100 H 16 102/45 L 100 08/07/18 15:11 08/07/18 15:11 08/07/18 15:11 08/07/18 15:11 08/07/18 15:11 - Physical Exam General Appearance: Yes: Nourished, Appropriately Dressed, Apparent Distress, Mild Distress HEENT: positive: DEBORAH, Normal ENT Inspection, Normal Voice, TMs Normal, Pharynx Normal Neck: positive: Supple. negative: Tender Respiratory/Chest: positive: Lungs Clear, Normal Breath Sounds Gastrointestinal/Abdominal: positive: Soft. negative: Tender Musculoskeletal: positive: Normal Inspection Extremity: positive: Normal Capillary Refill, Normal Inspection, Normal Range of Motion. negative: Tender Integumentary: positive: Normal Color, Dry, Warm, Pale Neurologic: positive: director airport operations II-XII NML intact, Fully Oriented, Alert, Normal Mood/ Affect, Normal Response, Motor Strength 5/5 Moderate Sedation - Procedure Monitoring Vital Signs: Procedure Monitoring Vital Signs Temperature 98.3 F 08/07/18 15:11 Pulse Rate 100 H 08/07/18 15:11 Respiratory Rate 16 08/07/18 15:11 Blood Pressure 102/45 L 08/07/18 15:11 O2 Sat by Pulse Oximetry (%) 100 08/07/18 15:11 *DC/Admit/Observation/Transfer Diagnosis at time of Disposition: Contusion Qualifiers: Encounter type: initial encounter Contusion area: lower back Qualified Code(s) : S30.0XXA - Contusion of lower back and pelvis, initial encounter - Discharge Dispostion Disposition: HOME Condition at time of disposition: Stable Decision to Admit order: No - Prescriptions Prescriptions: Acetaminophen [Tylenol] 650 mg PO Q6H #40 capsule - Referrals Referrals: Jose Iverson [Primary Care Provider] - - Patient Instructions Printed Discharge Instructions: DI for Contusion Additional Instructions: Rest, ice to area on and off for 15 minutes 4-6 times a day Avoid heavy lifting or exercise until pain and swelling is resolved or until further directed Keep area highly elevated to reduce swelling Use splints/Edu wrap as directed Followup with orthopedist in one to 2 days if not improving, if significantly improved may wait one week for followup with orthopedist May use Tylenol every 6 hours as needed for pain - Post Discharge Activity
== END 2018-08-07 16:10 | disposition home or self-care (01) ==
LOC: JERFT 15:01
DX: O99.89 Other specified diseases and conditions complicating pregnancy, childbirth and the puerperium (principal); S30.0XXA Contusion of lower back and pelvis, initial encounter; W18.2XXA Fall in (into) shower or empty bathtub, initial encounter; Y93.E1 Activity, personal bathing and showering; Y92.031 Bathroom in apartment as the place of occurrence of the external cause; Y99.8 Other external cause status; Z3A.27 27 weeks gestation of pregnancy
CPT/HCPCS: 99281-25

== ENCOUNTER 2018-08-13 09:33 | Emergency (ER) | payer OTHER ==
[2018-08-13 09:50] VITALS: BMI 25.6
[2018-08-13 11:39] VITALS: TEMP 98.2
--- NOTE | 2018-08-13 11:49 | PDOC ---
History of Present Illness - General Stated Complaint: OB CLEARANCE Time Seen by Provider: 08/13/18 11:08 - History of Present Illness Initial Comments: Farshad Batista is a 28yo woman, currently , with a PMH of MS who presents with unclear cheif complaint today. She was sent to the ED by L&D for psych evaluation, but it is unknown why she initially came to the hospital. She states that she feels like she is "walking on water" and that her mother told her she should be feeling cold outside. Her speech is somewhat nonsensical and does not answer questions with meaningful answers. Past History - Past Medical History Allergies/Adverse Reactions: Allergies Allergy/AdvReac Type Severity Reaction Status Date / Time latex Allergy Verified 08/13/18 11:30 Home Medications: Ambulatory Orders Acetaminophen [Tylenol .Regular Strength -] 650 mg PO Q6H PRN tablet 03/26/18 Vitamins (Sjr) - 1 tab PO DAILY tablet 03/26/18 Metoclopramide HCl 10 mg PO TID 08/13/18 Anemia: Yes COPD: No DVT: No Psychiatric Problems: Yes (BIPOLAR.) - Surgical History Abdominal Surgery: Yes - Reproductive History (#): 4 Para: 1 Therapeutic (s) & number: Yes (2) Spontaneous : 1 - Immunization History Immunization Up to Date: Yes - Suicide/Smoking/Psychosocial Hx Smoking Status: No Smoking History: Never smoked Have you smoked in the past 12 months: No Number of Cigarettes Smoked Daily: 0 Information on smoking cessation initiated: No Hx Alcohol Use: No Drug/Substance Use Hx: No Substance Use Type: None Hx Substance Use Treatment: No Review of Systems - Review of Systems Comments:: General: No fevers, no chills, no weight or appetite change, no malaise HEENT: No changes in vision, no changes in hearing, no congestion, no sore throat CV: No chest pain, no palpitations, no LE edema Pulm: No SOB, no cough, no wheezing GI: No nausea or vomiting, no change in bowel habits, no melena : No frequency, no urgency, no dysuria Musc: No back pain, no joint swelling, no recent injury Skin: No rash, no lesions, no erythema Endo: No excessive thirst, no heat/cold intolerance Heme: No unusual bruising or bleeding, no swollen glands Neuro: No syncope, no numbness/tingling, no focal weakness. h/o MS Vasc: No claudication Psych: No recent change in mood, no SI or HI. h/o bipolar, not on meds *Physical Exam - Vital Signs Last Vital Signs Temp Pulse Resp BP Pulse Ox 98.2 F 97 H 18 119/70 99 08/13/18 11:38 08/13/18 11:38 08/13/18 11:38 08/13/18 11:38 08/13/18 11:38 - Physical Exam Comments: General: Comfortable, no acute distress HEENT: PERRL, EOMI, MMM, voice normal, normal neck ROM, no LAD Cards: RRR, no murmur appreciated Pulm: Comfortable on room air, clear to auscultation bilaterally Abd: Soft, nontender, obviously gravid Ext: Atraumatic. No LE edema. ROM intact. Strength 5/5 and equal bilaterally Vasc: Extremities WWP. Skin: Normal color, no rashes or lesions Neuro: A&Ox3, CN grossly intact, motor/sensory grossly intact and symmetric Psych: Pleasant. Tangential speech, somewhat nonsensical (My phone says it's cold outside and I have couches that fold out). No hallucinations. Does not express SI or HI Moderate Sedation - Procedure Monitoring Vital Signs: Procedure Monitoring Vital Signs Temperature 98.2 F 08/13/18 11:38 Pulse Rate 97 H 08/13/18 11:38 Respiratory Rate 18 08/13/18 11:38 Blood Pressure 119/70 08/13/18 11:38 O2 Sat by Pulse Oximetry (%) 99 08/13/18 11:38 ED Treatment Course - LABORATORY CBC & Chemistry Diagram: 08/13/18 13:48 Medical Decision Making - Medical Decision Making 08/13/18 11:48 Farshad Batista a 28yo woman at 29w3d gestation (per biophysical profile on ) with a PMH of MS who presents reporting that she feels like she is "walking on water" and is having difficulty with temperature sensation eg "my phone says it's supposed to be cold outside." She was sent to the ED by L&D for a psych evaluation. - Unclear whether she is supposed to be on meds for bipolar disorder - Difficult to determine based on conversation what her chief complaint is today - Call placed to Dr Mackey to determine baseline. 08/13/18 12:49 - Spoke to Dr Mackey; says that patient always has flight of ideas. He reports medication non-compliance and multiple missed appointments; he has not seen her in the office since November. Recommends follow up with imaging after delivery but says that is generally protective for MS - Per chart review, has bipolar disorder. Ms Batista states that she has never been on any medication - Spoke to Dr Castro due to concern for health of self/others given and small children at home. He states that he will come to evaluate within the next 1-1.5 hours - CBC, CMP, UA for evaluation. Utox sent by L&D 08/13/18 13:29 - Dr Castro is at beside for evaluation 08/13/18 13:35 - Discussed with Dr Castro. He does not feel that she is likely to be a danger to herself or others. Recommending trying to contact the pt's sister to establish a baseline for her 08/13/18 14:20 - Do not have sister's number available. Ms Batista states that she has been feeling the same as always, does not believe that there is any problem with her psych history. - Seen a second time by Dr Castro. Cleared for discharge from his perspective - Now reporting back pain for 4 days and mild headache. Will give acetaminophen - CBC and UA unremarkable. Urine tox negative. Chemistry pending. Will likely d/ c home when completed 08/13/18 14:55 - Chemistry never sent. No concerns, will discontinue - Advised pt regarding home care and follow up. Will d/c home. Ms Batista states understanding and agreement. Discussed with Dr Babb. Rohini Gunter PGY1 *DC/Admit/Observation/Transfer Diagnosis at time of Disposition: Multiple sclerosis, Back pain affecting Headache Qualifiers: Headache type: unspecified Headache chronicity pattern: acute headache Intractability: not intractable Qualified Code(s): R51 - Headache - Discharge Dispostion Disposition: HOME Condition at time of disposition: Stable Decision to Admit order: No - Referrals Referrals: Jose Iverson [Primary Care Provider] - Travis Mackey MD [Staff Physician] - - Patient Instructions Printed Discharge Instructions: DI for -- Discomforts and Remedies Additional Instructions: Discharge Instructions: You were seen in the emergency department for back pain and headache during your . You were also evaluated for possible flare-up of your MS, and you were evaluated by psychiatry while in the ER to make sure you do not need medication. Home Care: - Take all medications as prescribed by your regular doctors - You may take 650mg acetaminophen (Tylenol) every 6-8 hours as needed for pain - Make sure you are drinking plenty of fluids to stay well hydrated Follow Up: - Make an appointment to see your neurologist, Dr Mackey, within the next week for follow up - Go to all of your scheduled obstetric appointments. - Seek immediate medical care if you have any severe pain, shortness of breath, difficulty breathing, one-sided neurological symptoms, or any medical emergency. - Post Discharge Activity
--- NOTE | 2018-08-13 12:09 | PDOC ---
Attending Attestation - Resident Resident Name: JosezekeRohini - ED Attending Attestation I have performed the following: I have examined & evaluated the patient, The case was reviewed & discussed with the resident, I agree w/resident's findings & plan, Exceptions are as noted - HPI HPI: 28 yo F history MS, currently (unknown gestational age) presents with unclear complaint. Pt states "It is cold outside...but my couches fold out". She states she is concerned her MS is flaring, stating that she feels warm but her feet feel cold and she is "walking on water". She states she is on vitamins, not taking anything for MS. Denies weakness, numbness. - Physicial Exam PE: GENERAL: Awake, alert, and fully oriented, in no acute distress HEAD: No signs of trauma EYES: PERRLA, EOMI, sclera anicteric, conjunctiva clear ENT: Auricles normal inspection, hearing grossly normal, nares patent, oropharynx clear without exudates. Moist mucosa NECK: Normal ROM, supple, no lymphadenopathy, JVD, or masses LUNGS: Breath sounds equal, clear to auscultation bilaterally. No wheezes, and no crackles HEART: Regular rate and rhythm, normal S1 and S2, no murmurs, rubs or gallops ABDOMEN: Soft, nontender, normoactive bowel sounds. No guarding, no rebound. No masses. +Gravid uterus. EXTREMITIES: Normal range of motion, no edema. No clubbing or cyanosis. No cords, erythema, or tenderness NEUROLOGICAL: Cranial nerves II through XII grossly intact. Normal speech, normal gait. Motor and sensation intact SKIN: Warm, Dry, normal turgor, no rashes or lesions noted. PSYCHIATRIC: Tangential thought process, somewhat bizarre affect. No SI/HI. - Medical Decision Making While she does not appear to be an immediate threat to herself, she is tangential in her speech and does not have a clear reason for presenting to the ED. D/w Dr. Mackey who states that is generally protective against MS flares. Will check basic labs. Will d/w psychiatry, as she is unmedicated at present. has two children at home.
--- NOTE | 2018-08-13 13:41 | CON.PSY ---
Psychiatry Consult Chief Complaint: patient seen for Psych evaluation. Has a history of MS and BiPolar Disorder, On No psych meds or Meds For MS. She reports that she came in to have her MS evaluated. Symptoms: reports: Anxiety - Previous Psychiatric Treatment Outpatient: Less than 6 mos ago - Previous Substance Abuse Treatment Outpatient: None Inpatient: None - Reason for Previous Treatment Reason for Previous Treatment: Anxiety or Panic Disorder - Allergies Allergies: Allergies Allergy/AdvReac Type Severity Reaction Status Date / Time latex Allergy Verified 08/13/18 11:30 - Current Living Status Usual Living Arrangement: With Child - Current Mental Status Evaluation Appearance: Well Groomed Attitude: Cooperative - Affect Affect: Full Range - Mood Mood: Euthymic - Speech/Language Expressive: Coherent - Psychomotor Activity Psychomotor Activity: Normal - Thought Process Thought Process: Circumstantial - Thought Content Hallucinations: Absent Delusions: Absent - Self Perception Self Perception: No Impairment - Cognition Attention: Alert Orientation: Time Memory, Short Term: 2/3 Memory, Remote with Promptin/3 - Concentration Serial Sevens Intact: No - Abstraction Proverb Interpretation: [place] Judgement: Minimally Impaired - Insight Insight: Intact - Impulse Control Impulse Control: Good Control - Suicidal Ideation Suicidal Ideation: No - Homicidal Ideation Homicidal Ideation: No Assessment/Plan 1) Pschiatrically cleared for Discharge. 2) no Psych meds.
[2018-08-13 14:00] LABS: BASO % 0.5 % (0-2.0); EOS % 0.5 % (0-4.5); HEMATOCRIT 33.7 % (32.4-45.2); HEMOGLOBIN 11.1 GM/dL (10.7-15.3); MCH 26.7 pg (25.7-33.7); MEAN CELL VOLUME 80.9 fl (80-96); MEAN PLT VOLUME 7.2 fl (7.5-11.1); MONO % 7.8 % (3.8-10.2); NEUT % 76.2 % (42.8-82.8); PLATELET COUNT 215 K/MM3 (134-434); RBC 4.16 M/mm3 (3.60-5.2); RDW 14.3 % (11.6-15.6); WHITE BLOOD COUNT 7.7 K/mm3 (4.0-10.0)
[2018-08-13 14:17] LABS: URINE APPEARANCE CLEAR; URINE BILIRUBIN NEGATIVE (<2.0 mg/dL); URINE COLOR COLORLESS; URINE GLUCOSE (UA) NEGATIVE (NEGATIVE); URINE KETONE NEGATIVE (NEGATIVE); URINE LEUK ESTERASE NEGATIVE (NEGATIVE); URINE NITRITE NEGATIVE (NEGATIVE); URINE PROTEIN NEGATIVE (NEGATIVE); URINE UROBILINOGEN NEGATIVE mg/dL (0.2-1.0)
[2018-08-13] MEDS ORDERED: ACETAMINOPHEN 325 MG TABLET (FP) PO ONE (14:23)
[2018-08-13] MEDS ORDERED: ACETAMINOPHEN 325 MG TABLET (FP) ONE (14:50)
[2018-08-13 15:26] VITALS: BP 119/70; PULSE 97
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
== END 2018-08-13 15:26 | disposition home or self-care (01) ==
LOC: JER 09:33
DX: O99.89 Other specified diseases and conditions complicating pregnancy, childbirth and the puerperium (principal); O99.353 Diseases of the nervous system complicating pregnancy, third trimester; G35 Multiple sclerosis; O99.343 Other mental disorders complicating pregnancy, third trimester; F31.9 Bipolar disorder, unspecified; Z3A.29 29 weeks gestation of pregnancy
CPT/HCPCS: 36415; 81003; 85025; 99282-25

== ENCOUNTER 2018-08-19 21:17 | Emergency (ER) | payer OTHER ==
[2018-08-19 21:35] VITALS: BMI 29.2
--- NOTE | 2018-08-19 22:15 | PDOC ---
History of Present Illness - General Chief Complaint: Weakness Stated Complaint: MS/NOT FEELING GOOD Time Seen by Provider: 08/19/18 21:31 History Source: Patient Exam Limitations: No Limitations - History of Present Illness Initial Comments: 08/19/18 22:10 28 yo 30 weeks , pmh MS and bipolar, sent from L&D today for complaints of lack of sensation. Pt seen in ED 1 week ago for similar complaints , found to not be on any medications for MS or bipolar Past History - Past Medical History Allergies/Adverse Reactions: Allergies Allergy/AdvReac Type Severity Reaction Status Date / Time latex Allergy Verified 08/19/18 20:14 Anemia: Yes COPD: No DVT: No Psychiatric Problems: Yes (BIPOLAR.) - Surgical History Abdominal Surgery: Yes - Reproductive History (#): 4 Para: 1 Therapeutic (s) & number: Yes (2) Spontaneous : 1 - Immunization History Immunization Up to Date: Yes - Suicide/Smoking/Psychosocial Hx Smoking Status: No Smoking History: Never smoked Have you smoked in the past 12 months: No Number of Cigarettes Smoked Daily: 0 Information on smoking cessation initiated: No Hx Alcohol Use: No Drug/Substance Use Hx: No Substance Use Type: None Hx Substance Use Treatment: No *Physical Exam - Vital Signs Last Vital Signs Temp Pulse Resp BP Pulse Ox 97.2 F L 87 20 103/61 100 08/19/18 21:30 08/19/18 21:30 08/19/18 21:30 08/19/18 21:30 08/19/18 21:30 Moderate Sedation - Procedure Monitoring Vital Signs: Procedure Monitoring Vital Signs Temperature 97.2 F L 08/19/18 21:30 Pulse Rate 87 08/19/18 21:30 Respiratory Rate 20 08/19/18 21:30 Blood Pressure 103/61 08/19/18 21:30 O2 Sat by Pulse Oximetry (%) 100 08/19/18 21:30 *DC/Admit/Observation/Transfer Diagnosis at time of Disposition: Multiple sclerosis - Discharge Dispostion Disposition: HOME Decision to Admit order: No - Referrals Referrals: Travis Mackye MD [Staff Physician] - Jackson Castro MD [Staff Physician] - - Patient Instructions Printed Discharge Instructions: DI for Multiple Sclerosis Additional Instructions: Please call your Neurologist and see him as soon as possible. Call and make an appointment with the Psychiatrist referred to you. Do not miss your appointments. See your Primary Care Doctor within the next 48 hours. [facility] to [facility] for care.Continue taking your home dosed medications as prescribed. Return to the ER with new or concerning symptoms including but not limited to: changes in vision, weakness on 1 side of your body , severe headaches, chest pain, shortness of breath, contractions, breaking your water, or high fevers - Post Discharge Activity
--- NOTE | 2018-08-19 22:17 | PDOC ---
Attending Attestation - HPI HPI: 08/19/18 22:22 28 year old female, 30 weeks , with history of bipolar disorder and MS, who was sent from L&D with complaints of not feeling well this evening. She was evaluated by psych on both 08/13 and 08/[address] Castro noted she was having loose associations which she seems to be experiencing presently as well. She denies any suicidal or homicidal ideations. Denies fever, chills, nausea, vomiting, diarrhea, cough, SOB, chest pain, or urinary complaints. - Physicial Exam PE: 08/19/18 22:23 GENERAL: Well developed, well nourished. Awake and alert. No acute distress. CARDIOVASCULAR: Regular rate and rhythm. No murmurs, rubs, or gallops. Distal pulses are 2+ and symmetric. PULMONARY: No evidence of respiratory distress. Lungs clear to auscultation bilaterally. No wheezing, rales or rhonchi. ABDOMINAL: Soft. Non-tender. Protuberant. No rebound or guarding. No organomegaly. Normoactive bowel sounds. EXTREMITIES: No cyanosis. No clubbing. No edema. No calf tenderness. SKIN: Warm and dry. Normal capillary refill. No rashes. No jaundice. NEUROLOGICAL: Alert, awake, appropriate. Cranial nerves 2-12 intact. PSYCHIATRIC: Cooperative. Good eye contact. Loose association. - Medical Decision Making 08/19/18 22:24 Documentation prepared by Bonita Gutierrez, acting as electromedical equipment technician for Agueda Herrera MD. 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
[2018-08-19 22:22] VITALS: BP 100/56; PULSE 90; TEMP 98.1
== END 2018-08-19 22:57 | disposition home or self-care (01) ==
LOC: JER 21:17
DX: O99.89 Other specified diseases and conditions complicating pregnancy, childbirth and the puerperium (principal); O99.353 Diseases of the nervous system complicating pregnancy, third trimester; G35 Multiple sclerosis; Z3A.30 30 weeks gestation of pregnancy
CPT/HCPCS: 99282-25

== ENCOUNTER 2018-10-11 03:26 | Emergency (ER) | payer OTHER ==
[2018-10-11 03:43] VITALS: TEMP 98.2; BMI 22.6
[2018-10-11] MEDS ORDERED: ACETAMINOPHEN 1000 MG/100 ML VIAL (NON FORMULARY) IVPB ONE (04:13)
--- NOTE | 2018-10-11 04:13 | PDOC ---
Attending Attestation - Resident Resident Name: Jair Donovan - ED Attending Attestation I have performed the following: I have examined & evaluated the patient, The case was reviewed & discussed with the resident, I agree w/resident's findings & plan - HPI HPI: 10/11/18 05:07 28-year-old female with history of recent section complaining of vaginal bleeding and pelvic pain.
[2018-10-11] MEDS ORDERED: ACETAMINOPHEN INJECTION 100 ML IVPB ONE (04:32)
[2018-10-11 04:38] LABS: HEMATOCRIT 25.6 % (32.4-45.2); MCH 24.9 pg (25.7-33.7); MCHC 31.2 g/dl (32.0-36.0); MEAN CELL VOLUME 79.8 fl (80-96); MEAN PLT VOLUME 7.3 fl (7.5-11.1); PLATELET COUNT 240 K/MM3 (134-434); RBC 3.21 M/mm3 (3.60-5.2); RDW 15.9 % (11.6-15.6); WHITE BLOOD COUNT 8.3 K/mm3 (4.0-10.0)
--- NOTE | 2018-10-11 04:50 | PDOC ---
History of Present Illness - General Chief Complaint: Vaginal Bleeding Stated Complaint: ABDOMONAL PAIN Time Seen by Provider: 10/11/18 04:05 History Source: Patient Exam Limitations: No Limitations - History of Present Illness Initial Comments: 10/11/18 04:37 28F who delivered her third child on October 07, 2018 via , presents to the ER with complaints of incisional pain. The patient also admits to "heavy " vaginal bleeding, soaking through 3-4 pads/day. She denies fever, chills but admits to nausea and vomiting, NBNB. The patient is unsure of exactly which hospital she delivered at. She admits to passing gas and stool. Past History - Past Medical History Allergies/Adverse Reactions: Allergies Allergy/AdvReac Type Severity Reaction Status Date / Time latex Allergy Verified 10/11/18 03:37 Home Medications: Ambulatory Orders NK [No Known Home Medication] 08/19/18 Anemia: Yes COPD: No DVT: No Psychiatric Problems: Yes (BIPOLAR.) - Surgical History Abdominal Surgery: Yes - Reproductive History Is Patient Now?: No (Gave Oct 07 2018) (#): 4 Para: 1 Therapeutic (s) & number: Yes (2) Spontaneous : 1 - Immunization History Td Vaccination: Yes TDAP Vaccination: Yes Immunization Up to Date: Yes - Suicide/Smoking/Psychosocial Hx Smoking Status: No Smoking History: Never smoked Have you smoked in the past 12 months: No Number of Cigarettes Smoked Daily: 0 Information on smoking cessation initiated: No Hx Alcohol Use: Yes Drug/Substance Use Hx: No Substance Use Type: None Hx Substance Use Treatment: No Review of Systems - Review of Systems Able to Perform ROS?: Yes Comments:: 10/11/18 04:41 GENERAL/CONSTITUTIONAL: No fever or chills. No weakness. HEAD, EYES, EARS, NOSE AND THROAT: No change in vision. No ear pain or discharge. No sore throat. CARDIOVASCULAR: No chest pain, palpitations, or lightheadedness. RESPIRATORY: No cough, wheezing, shortness of breath, or hemoptysis. GASTROINTESTINAL: + for abdominal pain, nausea, and vomiting. No diarrhea or constipation. GENITOURINARY: + for vaginal bleeding. No dysuria, frequency, hematuria, or change in urination. MUSCULOSKELETAL: No joint or muscle swelling or pain. No neck or back pain. SKIN: No rash or lesions. NEUROLOGIC: No headache, numbness, tingling, focal weakness, loss of consciousness, or change in strength/sensation. Is the patient limited Prydeinig proficient: No *Physical Exam - Vital Signs Last Vital Signs Temp Pulse Resp BP Pulse Ox 98.2 F 82 18 122/80 98 10/11/18 03:30 10/11/18 03:30 10/11/18 03:30 10/11/18 03:30 10/11/18 03:30 - Physical Exam Comments: 10/11/18 04:50 GENERAL: Well developed, well nourished. Awake and alert. No acute distress. HEENT: Normocephalic, atraumatic. Hearing grossly normal. Moist mucous membranes. PERRLA, EOMI. No conjunctival pallor. Sclera are non-icteric. Oropharynx is clear. NECK: Supple. Full ROM. No JVD. CARDIOVASCULAR: Regular rate and rhythm. No murmurs, rubs, or gallops. PULMONARY: No evidence of respiratory distress. Lungs clear to auscultation bilaterally. No wheezing, rales or rhonchi. ABDOMINAL: Soft. Non-distended. No rebound or guarding. C/s scar noted and healing well without drainage. TTP over incisional site without rebound. GENITOURINARY: No CVA tenderness bilaterally. PELVIC: Blood noted in vault. Normal external genitalia. MUSCULOSKELETAL: Normal range of motion at all joints. No bony deformities or tenderness. EXTREMITIES: No cyanosis. No clubbing. No edema. No calf tenderness or swelling. SKIN: Warm and dry. Normal capillary refill. No rashes. No jaundice. NEUROLOGICAL: Alert, awake, appropriate. Cranial nerves 2-12 intact. Normal speech. Gait is normal without ataxia. PSYCHIATRIC: Cooperative but tangential. Good eye contact. Appropriate mood and affect. ED Treatment Course - LABORATORY CBC & Chemistry Diagram: 10/11/18 04:25 10/11/18 04:25 Medical Decision Making - Medical Decision Making 10/11/18 04:51 28F who is POD3 who presents with incisional pain, 10/10, with nausea and vomiting and vaginal bleeding, although pt is noted to be laying comfortably. Pending labs and imaging. 10/11/18 06:04 Labs notable for Hgb of 8.0, dropped form 11.0 in August, likely 2/ c/s. Pt pending TVUS to evaluate for retained products. 10/11/18 07:[address] Pt signed out to Dr. Grubbs. *DC/Admit/Observation/Transfer Diagnosis at time of Disposition: Abdominal pain, Vaginal bleeding - Discharge Dispostion Disposition: HOME Condition at time of disposition: Good - Referrals Referrals: Jose Johnson [Primary Care Provider] - - Patient Instructions Printed Discharge Instructions: DI for Abdominal Pain-Adult Additional Instructions: Please follow up with your OBGYN that performed the this week. Please return to the ED immediately if you have any new, worsening or concerning symptoms, especially increasing pain, vomiting and fever. Please take motrin for pain. - Post Discharge Activity
[2018-10-11 04:54] LABS: INR 0.87 (0.83-1.09); PROTHROMBIN TIME (PATIENT) 10.2 SEC (9.7-13.0)
[2018-10-11 05:05] LABS: ALBUMIN 2.7 g/dl (3.4-5.0); BILIRUBIN,TOTAL 0.3 mg/dL (0.2-1); CALCIUM 8.1 mg/dL (8.5-10.1); CREATININE 0.4 mg/dL (0.55-1.3); POTASSIUM 3.5 mmol/L (3.5-5.1); TOT PROT 5.8 g/dl (6.4-8.2)
--- NOTE | 2018-10-11 08:30 | PDOC ---
*Physical Exam - Vital Signs Last Vital Signs Temp Pulse Resp BP Pulse Ox 98.2 F 80 17 126/78 98 10/11/18 07:10 10/11/18 07:10 10/11/18 07:10 10/11/18 07:10 10/11/18 07:10 ED Treatment Course - LABORATORY CBC & Chemistry Diagram: 10/11/18 04:25 10/11/18 04:25 - ADDITIONAL ORDERS Additional order review: Laboratory Results 10/11/18 10/11/18 04:25 04:25 PT with INR 10.20 INR 0.87 Sodium 140 Potassium 3.5 Chloride 105 Carbon Dioxide 30 Anion Gap 6 L BUN 7 Creatinine 0.4 L Est GFR (CKD-EPI)AfAm 165.44 Est GFR (CKD-EPI)NonAf 142.74 Random Glucose 81 Calcium 8.1 L Total Bilirubin 0.3 AST 25 ALT 32 Alkaline Phosphatase 89 Total Protein 5.8 L Albumin 2.7 L 10/11/18 04:25 RBC 3.21 L MCV 79.8 L MCHC 31.2 L RDW 15.9 H D MPV 7.3 L - Medications Given in the ED: ED Medications Discontinued Medications Generic Name Dose Route Start Last Admin Trade Name Freq PRN Reason Stop Dose Admin Acetaminophen 1,000 mg 10/11/18 04:13 10/11/18 04:38 Ofirmev Injection - IVPB 10/11/18 04:14 1,000 mg ONCE ONE Administration Medical Decision Making - Medical Decision Making 10/11/18 08:[address] Donovan. Patient is 28F who is 5 days s/p here today complaining of pain around her incision. Hgb at 8.0 from 11.0, consistent with recent . Pending TVUS to evaluate for retained products. Patient is walking and has nontender abdomen. 10/11/18 11:36 TVUS shows small amount of blood in uterus. Patient is nontender, well appearing with normal vitals. Will discharge with instructions to take ibuprofen for pain. *DC/Admit/Observation/Transfer Diagnosis at time of Disposition: Abdominal pain, Vaginal bleeding - Discharge Dispostion Disposition: HOME Condition at time of disposition: Good Decision to Admit order: No - Referrals Referrals: Jose Johnson [Primary Care Provider] - - Patient Instructions Printed Discharge Instructions: DI for Abdominal Pain-Adult Additional Instructions: Please follow up with your OBGYN that performed the this week. Please return to the ED immediately if you have any new, worsening or concerning symptoms, especially increasing pain, vomiting and fever. Please take motrin for pain. - Post Discharge Activity
[2018-10-11 11:21] VITALS: BP 128/74; PULSE 78
--- NOTE | 2018-10-12 00:09 | PN ---
Teaching Attending Note Name of Resident: Jay Ceron ATTENDING PHYSICIAN STATEMENT I saw and evaluated the patient. I reviewed the resident's note and discussed the case with the resident. I agree with the resident's findings and plan as documented. SUBJECTIVE: OBJECTIVE: HEENT: No Jaundice, eye redness or discharge, PERRLA, EOMI. Normocephalic, atraumatic. External ears are normal and hearing is grossly intact. No nasal discharge. Neck: Supple, nontender. No palpable adenopathy or thyromegaly. No JVD Chest: Good effort. Clear to auscultation and percussion. Heart: Regular. No S3, rub or murmur Abdomen: Not distended, soft, nontender and no HSM. No rebound or guarding. Normal bowel sounds. Ext: Peripheral pulses intact. No leg edema. Skin: Warm and dry. No petechiae, rash or ecchymosis. Neuro: Alert. Oriented x3. CN 2-12 grossly intact. Sensation grossly intact in all four extremities and DTR are symmetric. Psych: Appropriate mood and affect. Good insight. Hypoalbuminemia - Possibly due to combined effects of malnutrition and inflammation associated with comorbid chronic conditions. Will ensure adequate dietary protein intake and also consult instrument technician. DM For now, we will hold the home diabetes drugs and implement sliding scale insulin regimen. Provide comprehensive diabetes care with patient teaching and counseling about the importance of adherence to prescribed diabetes regimen, euglycemia, eye care and foot care. Tobacco Use Counseled on risks associated with tobacco use. We will provide patient all the necessary assistance to facilitate smoking cessation and prescribe Nicotine patch. Will consult nephrology and avoid nephrotoxic agents such as NSAIDS, aminoglycosides, contrast dyes and certain Alternative medicine products. Anemia - Do basic anemia work up including serial stool guaiacs, reticulocyte count and iron studies. Would benefit from Procrit therapy once iron replete. Obesity Counseled on the risks associated with obesity. Will provide patient all the necessary assistance, counseling and positive reinforcement to facilitate weight loss. Consult instrument technician. Alcohol abuse - Implement [facility] alcohol withdrawal protocol and do neurochecks. Implement seizure, fall and aspiration precautions. Treat with thiamine and folic acid and monitor electrolytes (Ca,Mg,K,P). Counseled patient about abstaining from alcohol. Will consult tree specialist and refer to alcohol detox upon discharge. Hypertension - Restart outpatient antihypertensive drugs and revise regimen to ensure smooth [id number] good BP control. Nonpharmacologic measures to control hypertension like weight loss , salt restriction and exercise discussed. DVT prophylaxis - Lovenox 40 mg SQ q 24 hours. Heparin 5000u sq tid. Advance directives - Full code ASSESSMENT AND PLAN:
== END 2018-10-11 11:56 | disposition home or self-care (01) ==
LOC: JER 03:26
PROC: 3E033NZ Introduction of Analgesics, Hypnotics, Sedatives into Peripheral Vein, Percutaneous Approach (ICD-10-PCS; principal; 2018-10-11)
DX: O90.89 Other complications of the puerperium, not elsewhere classified (principal); O72.1 Other immediate postpartum hemorrhage; Z37.9 Outcome of delivery, unspecified
CPT/HCPCS: 36415; 76830-TC; 80053; 85027; 85610; 99284-25; J0131

== ENCOUNTER 2018-10-13 02:26 | Observation (INO) | payer OTHER ==
--- NOTE | 2018-10-13 02:42 | PDOC ---
History of Present Illness - History of Present Illness Initial Comments: Farshad Batista is a 28yo woman with a PMH of MS and bipolar disorder, currently not on medications, 5 days (c-secton on 10/07 at [place]), seen in the ED last night for incisional pain with negative workup who presents stating that her "body is shutting down" and she "can't feel anything anymore." She says that her new baby was kept in the hospital, and she was told that she can pick him up today but she "needs to take care of herself first." Ms Batista requests to see neurology immediately to restart treatment. She is no longer reporting the incisional pain or vaginal bleeding that she was seen for yesterday. She does report urinary frequency w/o dysuria but denies any other specific complaints. <Rohini Gunter - Last Filed: 10/13/18 05:22> <Monica Navarro - Last Filed: 10/13/18 06:04> - General Stated Complaint: SICK Time Seen by Provider: 10/13/18 02:27 Past History - Past Medical History Anemia: Yes COPD: No DVT: No Psychiatric Problems: Yes (BIPOLAR.) - Surgical History Abdominal Surgery: Yes - Reproductive History (#): 4 Para: 1 Therapeutic (s) & number: Yes (2) Spontaneous : 1 - Immunization History Td Vaccination: Yes TDAP Vaccination: Yes Immunization Up to Date: Yes - Suicide/Smoking/Psychosocial Hx Smoking Status: No Smoking History: Never smoked Have you smoked in the past 12 months: No Number of Cigarettes Smoked Daily: 0 Hx Alcohol Use: No Drug/Substance Use Hx: No Substance Use Type: None Hx Substance Use Treatment: No <Rohini Gunter - Last Filed: 10/13/18 05:22> <Monica Navarro - Last Filed: 10/13/18 06:04> - Past Medical History Allergies/Adverse Reactions: Allergies Allergy/AdvReac Type Severity Reaction Status Date / Time latex Allergy Verified 10/11/18 03:37 Home Medications: Ambulatory Orders Unobtainable 10/13/18 Review of Systems - Review of Systems Comments:: Could not obtain. Pt reports that she is "falling apart" <Rohini Gunter - Last Filed: 10/13/18 05:22> *Physical Exam - Physical Exam Comments: General: Comfortable, no acute distress HEENT: PERRL, EOMI, MMM, voice normal, normal neck ROM, no LAD Cards: RRR, no murmur appreciated Pulm: Comfortable on room air, clear to auscultation bilaterally Abd: Soft, nontender, nondistended. Surgical incision c/d/i : No CVA tenderness Ext: Atraumatic. No LE edema. ROM intact. Vasc: Extremities WWP. Skin: Normal color, no rashes or lesions Neuro: A&Ox3, CN grossly intact, normal speech, motor/sensory grossly intact and symmetric Psych: Mood appropriate to situation, disordered speech <Rohini Gunter - Last Filed: 10/13/18 05:22> - Vital Signs Last Vital Signs Temp Pulse Resp BP Pulse Ox 97.8 F 88 16 102/63 100 10/13/18 02:56 10/13/18 02:56 10/13/18 02:56 10/13/18 02:56 10/13/18 02:56 <Monica Navarro - Last Filed: 10/13/18 06:04> ED Treatment Course - LABORATORY CBC & Chemistry Diagram: 10/13/18 03:29 10/13/18 03:27 <Rohini Gunter - Last Filed: 10/13/18 05:22> - LABORATORY CBC & Chemistry Diagram: 10/13/18 03:29 10/13/18 03:27 - ADDITIONAL ORDERS Additional order review: Laboratory Results 10/13/18 10/13/18 05:30 03:27 Sodium 138 Potassium 3.6 Chloride 107 Carbon Dioxide 25 Anion Gap 6 L BUN 10 Creatinine 0.4 L Est GFR (CKD-EPI)AfAm 165.44 Est GFR (CKD-EPI)NonAf 142.74 Random Glucose 86 Calcium 8.0 L Total Bilirubin 0.4 AST 28 ALT 45 Alkaline Phosphatase 75 Total Protein 5.1 L Albumin 2.4 L Crossmatch See Detail 10/13/18 03:29 RBC 2.81 L MCV 80.1 MCHC 30.3 L RDW 16.3 H MPV 7.0 L Neutrophils % 68.8 Lymphocytes % 20.7 D Monocytes % 9.2 Eosinophils % 0.7 Basophils % 0.6 <Monica Navarro - Last Filed: 10/13/18 06:04> Medical Decision Making - Medical Decision Making 10/13/18 02:43 Farshad Batista is a 28yo woman with a PMH of MS and bipolar disorder, currently not on medications, 5 days (c-secton on 10/07 at [place]), seen in the ED last night for incisional pain with negative workup who presents stating that her "body is shutting down" and she "can't feel anything anymore." She reports urinary frequency but denies any other symptoms. - Pt indicates that she has a possible MS flair. Will place neurology consult, will be seen in the morning - Will consider psych consult given untreated bipolar, but symptoms appear more mild than when seen previously by me in August - Given recent workup for vaginal bleeding w/ anemia to hgb 8.0 will repeat labs to evaluate for changes - UA ordered given urinary frequency, will evaluate for UTI 10/13/18 05:22 - Labs notable for worsening anemia with hgb 6.8 from 8.0 earlier in the day - Microblog sent for admission <Rohini Gunter - Last Filed: 10/13/18 05:22> *DC/Admit/Observation/Transfer - Discharge Dispostion Decision to Admit order: Yes <Rohini Gunter - Last Filed: 10/13/18 05:22> <Monica Navarro - Last Filed: 10/13/18 06:04> Diagnosis at time of Disposition: Anemia - Discharge Dispostion Condition at time of disposition: Guarded
--- NOTE | 2018-10-13 03:02 | PDOC ---
Attending Attestation - Resident Resident Name: Rohini Gunter - ED Attending Attestation I have performed the following: I have examined & evaluated the patient, The case was reviewed & discussed with the resident, I agree w/resident's findings & plan - HPI HPI: 10/13/18 06:28 Pt feels unwell and she is demanding to see the neurologist because she has MS and she feels her condition is related to her neuro status. Pt has no other complaints. - Physicial Exam PE: 10/13/18 06:29 Agree with resident exam. - Medical Decision Making 10/13/18 06:31 Pt has hb/HCT lower than usual. She will be admitted for anemia and generalized malaise. Pt will require neuro eval/consult
[2018-10-13 03:34] LABS: BASO % 0.6 % (0-2.0); EOS % 0.7 % (0-4.5); HEMATOCRIT 22.5 % (32.4-45.2); LYMPH % 20.7 % (8-40); MCH 24.3 pg (25.7-33.7); MCHC 30.3 g/dl (32.0-36.0); MEAN CELL VOLUME 80.1 fl (80-96); MONO % 9.2 % (3.8-10.2); NEUT % 68.8 % (42.8-82.8); PLATELET COUNT 262 K/MM3 (134-434); RBC 2.81 M/mm3 (3.60-5.2); RDW 16.3 % (11.6-15.6); WHITE BLOOD COUNT 6.6 K/mm3 (4.0-10.0)
[2018-10-13 03:54] LABS: HEMOGLOBIN 6.8 GM/dL (10.7-15.3)
[2018-10-13 04:12] LABS: ALBUMIN 2.4 g/dl (3.4-5.0); BILIRUBIN,TOTAL 0.4 mg/dL (0.2-1); CREATININE 0.4 mg/dL (0.55-1.3); POTASSIUM 3.6 mmol/L (3.5-5.1); TOT PROT 5.1 g/dl (6.4-8.2)
[2018-10-13 05:11] LABS: ERYTHROCYTE SEDIMENTATION RATE 31 mm/hr (0-20)
--- NOTE | 2018-10-13 07:28 | PDOC ---
*Physical Exam - Vital Signs Last Vital Signs Temp Pulse Resp BP Pulse Ox 98 F 70 17 115/76 99 10/13/18 07:22 10/13/18 07:22 10/13/18 07:22 10/13/18 07:22 10/13/18 07:22 ED Treatment Course - LABORATORY CBC & Chemistry Diagram: 10/13/18 03:29 10/13/18 03:27 - ADDITIONAL ORDERS Additional order review: Laboratory Results 10/13/18 10/13/18 05:30 03:27 Sodium 138 Potassium 3.6 Chloride 107 Carbon Dioxide 25 Anion Gap 6 L BUN 10 Creatinine 0.4 L Est GFR (CKD-EPI)AfAm 165.44 Est GFR (CKD-EPI)NonAf 142.74 Random Glucose 86 Calcium 8.0 L Total Bilirubin 0.4 AST 28 ALT 45 Alkaline Phosphatase 75 Total Protein 5.1 L Albumin 2.4 L Crossmatch See Detail 10/13/18 03:29 RBC 2.81 L MCV 80.1 MCHC 30.3 L RDW 16.3 H MPV 7.0 L Neutrophils % 68.8 Lymphocytes % 20.7 D Monocytes % 9.2 Eosinophils % 0.7 Basophils % 0.6 Medical Decision Making - Medical Decision Making 10/13/18 07:24 Sign out received from Dr. Gunter. Patient is a 28 year old female with histroy of bipolar disorder, multiple sclerosis presenting with vague complaints of not feeling like herself. She is POD #5 s/p section at [facility]. Patient was seen here two days ago for complaint of heavy vaginal bleeding. Currently she denies any bleeding. Hb 6.8 (decreased from 8.0 on prior visit two days ago). Transvaginal US showed no retained products of conception. 10/13/18 07:50 Case discussed with OBGYN Dr. Snell who evaluated the patient in the ED PRBC transfusion recommended. No indication for further imaging at this time. Patient admitted for observation, PRBC transfusion. Neurology evaluation for multiple sclerosis. *DC/Admit/Observation/Transfer Diagnosis at time of Disposition: Anemia - Discharge Dispostion Condition at time of disposition: Guarded Decision to Admit order: Yes - Referrals - Patient Instructions - Post Discharge Activity
--- NOTE | 2018-10-13 09:12 | HP ---
CHIEF COMPLAINT: anemia, bleeding PCP: none HISTORY OF PRESENT ILLNESS: The patient is a 28 year old female with a PMH of MS, bipolar disorder, s/p c section 10/07/18 in [facility], presented today complaining of "not feeling herself", " feeling nothing". She also reports heavy vaginal bleeding, abdominal pain that is still present after delivery and frontal headache. She was found to have anemia with Hgb of 6.8 today. The patient presented yesterday to ED and was found to have Hgb 8. She was discharged home with recommendation to f/u her OBYN. The patient decided to come back to ER. She denies palpitations, SOB, chest pain, dysuria, fever, chills. Of note she delivered her baby at 37 weeks by c section, her son stayed in NICU for "breathing problems" and is going to be discharge tomorrow. ER course was notable for: (1)OBGYN evaluation (2)1 u of PRBC PAST MEDICAL HISTORY: as above PAST SURGICAL HISTORY: 3 c-sections Social History: Smoking:denies, Alcohol:denies, Drugs: denies Family History: noncontributory Allergies latex Allergy (Verified 10/11/18 03:37) HOME MEDICATIONS: Home Medications Medication Instructions Recorded Unobtainable 10/13/18 REVIEW OF SYSTEMS CONSTITUTIONAL: malaise Absent: fever, chills, diaphoresis, loss of appetite, weight change HEENT: Absent: rhinorrhea, nasal congestion, throat pain CARDIOVASCULAR: Absent: chest pain, syncope, palpitations, lightheadedness, peripheral edema RESPIRATORY: Absent: cough, shortness of breath, dyspnea with exertion, wheezing, GASTROINTESTINAL: abdominal pain, Absent: abdominal distension, nausea, vomiting, diarrhea, constipation, melena, hematochezia GENITOURINARY: Absent: dysuria, frequency, urgency, flank pain MUSCULOSKELETAL: Absent: myalgia, arthralgia SKIN: healing c section wound Absent: rash, itching, pallor ENDOCRINE: Absent: unexplained weight gain, unexplained weight loss NEUROLOGIC: headache Absent: focal weakness or paresthesias, dizziness, unsteady gait, seizure, mental status changes, bladder or bowel incontinence PSYCHIATRIC: Absent: anxiety, depression PHYSICAL EXAMINATION Vital Signs - 24 hr 10/13/18 10/13/18 10/13/18 02:56 07:11 07:22 Temperature 97.8 F 98 F Pulse Rate 88 Pulse Rate [ 70 Apical] Respiratory 16 17 Rate Blood Pressure 102/63 Blood Pressure 115/76 [Right Arm] O2 Sat by Pulse 100 97 99 Oximetry (%) 10/13/18 07:24 Temperature Pulse Rate Pulse Rate [ Apical] Respiratory Rate Blood Pressure Blood Pressure [Right Arm] O2 Sat by Pulse 99 Oximetry (%) GENERAL: Awake, alert, and fully oriented, in no acute distress. HEAD: Normal with no signs of trauma. EYES: Pupils equal, round and reactive to light, extraocular movements intact. EARS, NOSE, THROAT: Oropharynx clear without exudates. Moist mucous membranes. NECK: Normal range of motion, supple without lymphadenopathy. LUNGS: Breath sounds equal, clear to auscultation bilaterally. No wheezes, and no crackles. HEART: Regular rate and rhythm, normal S1 and S2 without murmur, rub or gallop. ABDOMEN: Soft, mild tenderness in all 4 Q, not distended, loose skin, + bowel sounds, no guarding, no rebound, no masses, lower abdomen: well healing horizontal scar, no tenderness, no drainage, no erythema. MUSCULOSKELETAL: Normal range of motion at all joints. No CVA tenderness. UPPER EXTREMITIES: No peripheral edema. LOWER EXTREMITIES: 2+ pulses, warm, no calf tenderness. No peripheral edema. NEUROLOGICAL: Non focal. Normal speech. PSYCHIATRIC: Cooperative. Good eye contact. Appropriate mood and affect. SKIN: Warm, dry, no rashes. Laboratory Results - last 24 hr 10/13/18 10/13/18 10/13/18 03:27 03:29 05:30 WBC 6.6 RBC 2.81 L Hgb 6.8 L* Hct 22.5 L MCV 80.1 MCH 24.3 L MCHC 30.3 L RDW 16.3 H Plt Count 262 MPV 7.0 L Absolute Neuts (auto) 4.5 Neutrophils % 68.8 Lymphocytes % 20.7 D Monocytes % 9.2 Eosinophils % 0.7 Basophils % 0.6 Nucleated RBC % 0 ESR 31 H Sodium 138 Potassium 3.6 Chloride 107 Carbon Dioxide 25 Anion Gap 6 L BUN 10 Creatinine 0.4 L Est GFR (CKD-EPI)AfAm 165.44 Est GFR (CKD-EPI)NonAf 142.74 Random Glucose 86 Calcium 8.0 L Total Bilirubin 0.4 AST 28 ALT 45 Alkaline Phosphatase 75 Total Protein 5.1 L Albumin 2.4 L Blood Type O POSITIVE Antibody Screen Negative Crossmatch See Detail ASSESSMENT/PLAN: The patient is a 28 year old female with a PMH of MS, bipolar disorder, s/p c section 10/07/18 in [facility], admitted for symptomatic anemia. Anemia: -likely due to blood loss, s/p c section continues to have heavy vaginal bleeding, -TV US negative for retained products of conception, blood collection, hemodynamically stable -OBGYN consulted, recommended 1 u of PRBC, no more imaging -will f/u CBC at 6 PM s/p c section: -f/u OGYN recommendations -wound dressing removed, no signs of infection MS: -stopped taking Aubagio (Teriflunamide) in the begginng of her , used to take it for 3 years -f/u Dr Mackey as outpatient Bipolar disorder: -not on medications -f/u Psychiatrist, doesn't remember the name F/E/N no/no changes/Regular DVT PPX: scds no Heparin Dispo: obs med surg Problem List - Problem (1) Anemia Code(s): D64.9 - ANEMIA, UNSPECIFIED (2) 37 weeks gestation of Code(s): Z3A.37 - 37 WEEKS GESTATION OF (3) Vaginal bleeding Code(s): N93.9 - ABNORMAL UTERINE AND VAGINAL BLEEDING, UNSPECIFIED Visit type - Emergency Visit Emergency Visit: Yes ED Registration Date: 10/13/18 Care time: The patient presented to the Emergency Department on the above date and was hospitalized for further evaluation of their emergent condition. - New Patient This patient is new to me today: Yes Date on this admission: 10/13/18 - Critical Care Critical Care patient: No
[2018-10-13 10:01] LABS: EPI CELLS 3.9 /HPF (0-5/HPF); URINE BACTERIA 27.8 /hpf (NEGATIVE); URINE CASTS 6 /lpf (0-8); URINE RBC 35 /hpf (0-4); URINE WBC 18 /hpf (0-5)
[2018-10-13 10:27] LABS: PH,URINE 7.5 (5.0-8.0); URINE APPEARANCE Clear; URINE BILIRUBIN Negative (NEGATIVE); URINE COLOR Yellow; URINE GLUCOSE (UA) Negative (NEGATIVE); URINE KETONE Trace (NEGATIVE); URINE LEUK ESTERASE Negative (NEGATIVE); URINE NITRITE Negative (NEGATIVE); URINE PROTEIN Trace (NEGATIVE)
--- NOTE | 2018-10-13 11:40 | EKG ---
Test Reason : Blood Pressure : / mmHG Vent. Rate : 060 BPM Atrial Rate : 060 BPM P-R Int : 126 ms QRS Dur : 076 ms QT Int : 374 ms P-R-T Axes : 075 084 049 degrees QTc Int : 374 ms NORMAL SINUS RHYTHM NORMAL ECG WHEN COMPARED WITH ECG OF 21-DEC-2014 00:33, NO SIGNIFICANT CHANGE WAS FOUND Confirmed by GLORIA LARES MD ([id number]) on 10/13/2018 11:39:47 AM Referred By: Confirmed By:GLORIA LARES MD
--- NOTE | 2018-10-13 13:46 | PN ---
Teaching Attending Note Name of Resident: Karla Moreno ATTENDING PHYSICIAN STATEMENT I saw and evaluated the patient. I reviewed the resident's note and discussed the case with the resident. I agree with the resident's findings and plan as documented. SUBJECTIVE: OBJECTIVE: s1 and s2 rrr llung CTA good air entry no edema ASSESSMENT AND PLAN: The patient is a 28 year old female with a PMH of MS, bipolar disorder, s/p c section 10/07/[address] [facility], admitted for symptomatic anemia patient is day 5 after C section, she still has some vaginal bleeding. acute blood loss Anemia: -likely due to blood loss, s/p c section continues to have heavy vaginal bleeding, -TV US negative for retained products of conception, blood collection, hemodynamically stable -OBGYN consulted, recommended 1 u of PRBC, no more imaging -will f/u CBC at 6 PM s/p c section: -f/u OGYN recommendations -wound dressing removed, no signs of infection MS: -stopped taking Aubagio (Teriflunamide) in the begginng of her , used to take it for 3 years -f/u Dr Mackey as outpatient Bipolar disorder: -not on medications -f/u Psychiatrist, doesn't remember the name DVT PPX: scds no Heparin
[2018-10-13 14:48] VITALS: BMI 24.4
[2018-10-13 17:06] LABS: BASO % 0.3 % (0-2.0); EOS % 0.5 % (0-4.5); HEMATOCRIT 29.5 % (32.4-45.2); HEMOGLOBIN 9.2 GM/dL (10.7-15.3); LYMPH % 17.7 % (8-40); MCH 25.2 pg (25.7-33.7); MCHC 31.1 g/dl (32.0-36.0); MEAN CELL VOLUME 81.1 fl (80-96); MEAN PLT VOLUME 7.2 fl (7.5-11.1); MONO % 8.2 % (3.8-10.2); NEUT % 73.3 % (42.8-82.8); PLATELET COUNT 279 K/MM3 (134-434); RBC 3.64 M/mm3 (3.60-5.2)
--- NOTE | 2018-10-13 19:18 | CON.OBG ---
Consult Consult Specialty:: TOWNSHIP CLERK Reason for Consultation:: Anemia - History of Present Illness Chief Complaint: Dizziness History of Present Illness: The patient is a 28 year old female with a PMH of MS, bipolar disorder, s/p c section 10/07/18 in [facility], presented today complaining of "not feeling herself", " feeling nothing". She also reports heavy vaginal bleeding, abdominal pain that is still present after delivery and frontal headache. She was found to have anemia with Hgb of 6.8 today. The patient presented yesterday to ED and was found to have Hgb 8. She was discharged home with recommendation to f/u her OBYN. The patient decided to come back to ER. She denies palpitations, SOB, chest pain, dysuria, fever, chills. OB / TOWNSHIP CLERK consulted; I came to see patient, she is stable but admits that when she went to [place] yesterday she didn't feel herself. There was no issue with the . 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 she states she is diagnosed MS at age 20 yrs, iyr after her delivery . she was given steroids & then injections when non but during pregn all the meds were stopped), Syncope (past h/o syncope , seen in er), Other (no c/o headche). No: Seizure Gastrointestinal: Yes: Other (vomitting, ruq pain .). No: GERD ...LMP: 10/08/14 ...: No ...Para: 3 Infectious Disease: Yes: Other (declines) Psych: Yes: Anxiety Musculoskeletal: Yes: Other (MS) - Past Surgical History Past Surgical History: Yes: (2008) - Alcohol/Substance Use Hx Alcohol Use: No History of Substance Use: reports: None - Smoking History Smoking history: Never smoked Have you smoked in the past 12 months: No Aproximately how many cigarettes per day: 0 - Social History Usual Living Arrangement: With Child History of Recent Travel: No Home Medications - Allergies Allergies/Adverse Reactions: Allergies Allergy/AdvReac Type Severity Reaction Status Date / Time latex Allergy Verified 10/11/18 03:37 - Home Medications Home Medications: Ambulatory Orders Unobtainable 10/13/18 Review of Systems - Review of Systems Constitutional: reports: Weakness Eyes: denies: Blind Spots, Blurred Vision Neck: reports: No Symptoms Cardiovascular: denies: Chest Pain, Palpitations, Shortness of Breath Respiratory: denies: SOB Genitourinary: reports: Other (mild lochia) Musculoskeletal: reports: No Symptoms Neurological: reports: No Symptoms Hematology/Lymphatic: reports: No Symptoms Psychiatric: reports: No Symptoms Pain Intensity: 0 Physical Exam-TOWNSHIP CLERK Vital Signs: Vital Signs Temperature 97.4 F L 10/13/18 18:16 Pulse Rate 72 10/13/18 18:16 Respiratory Rate 18 10/13/18 18:16 Blood Pressure 109/72 10/13/18 18:16 O2 Sat by Pulse Oximetry (%) 97 10/13/18 13:00 Constitutional: Yes: Well Nourished Eyes: Yes: Conjunctiva Clear HENT: Yes: Atraumatic Neck: Yes: Supple Cardiovascular: Yes: Regular Rate and Rhythm Gastrointestinal: Yes: Normal Bowel Sounds Vaginal Exam: Yes: Normal Cervix: Yes: Normal Uterus: Yes: Firm ....Post : Yes: Uterus firm, Slight lochia rubra Breast(s): Yes: WNL Musculoskeletal: Yes: WNL Extremities: Yes: WNL Wound/Incision: Yes: Sutures Intact. No: Draining, Reddened, Bleeding Neurological: Yes: Alert, Oriented Psychiatric: Yes: Other (Personal h/o mental illness) Labs: CBC, BMP 10/13/18 16:43 10/13/18 03:27 Assessment/Plan Anemia Status post ( no complication ) Personal h/o mental illness Personal h/o MS Admit for blood transfusion F/U with Internal medicine
[2018-10-14 08:13] LABS: HEMATOCRIT 28.3 % (32.4-45.2); HEMOGLOBIN 9.2 GM/dL (10.7-15.3); MCH 25.8 pg (25.7-33.7); MCHC 32.5 g/dl (32.0-36.0); MEAN CELL VOLUME 79.5 fl (80-96); MEAN PLT VOLUME 7.1 fl (7.5-11.1); PLATELET COUNT 301 K/MM3 (134-434); RBC 3.56 M/mm3 (3.60-5.2); RDW 16.2 % (11.6-15.6); WHITE BLOOD COUNT 7.3 K/mm3 (4.0-10.0)
[2018-10-14 08:38] LABS: ALBUMIN 2.7 g/dl (3.4-5.0); BILIRUBIN,TOTAL 0.4 mg/dL (0.2-1); CALCIUM 7.7 mg/dL (8.5-10.1); CREATININE 0.6 mg/dL (0.55-1.3); POTASSIUM 4.1 mmol/L (3.5-5.1); TOT PROT 5.5 g/dl (6.4-8.2)
--- NOTE | 2018-10-14 09:58 | DS ---
Physical Examination Vital Signs: Vital Signs Temperature 98.2 F 10/14/18 06:00 Pulse Rate 64 10/14/18 06:00 Respiratory Rate 18 10/14/18 06:00 Blood Pressure 149/67 10/14/18 06:00 O2 Sat by Pulse Oximetry (%) 97 10/13/18 21:00 Constitutional: Yes: Well Nourished, No Distress, Calm Eyes: Yes: WNL, Conjunctiva Clear, EOM Intact HENT: Yes: WNL, Atraumatic, Normocephalic Neck: Yes: WNL, Supple, Trachea Midline Cardiovascular: Yes: WNL, Regular Rate and Rhythm, S1, S2 Respiratory: Yes: WNL, Regular, CTA Bilaterally Gastrointestinal: Yes: WNL, Normal Bowel Sounds, Soft Musculoskeletal: Yes: WNL Extremities: Yes: WNL Labs: CBC, BMP 10/14/18 07:15 10/14/18 07:15 Discharge Summary Reason For Visit: ANEMIA Current Active Problems Anemia (Acute) Hospital Course: patient was admitted for anemia of acute blood loss, she is doing well, she has no complaints, stated that she wishes to leave since her new born 37wk gestation is in the NICU at [facility], she has to leave to be able to release him. she is clinically stable no acute bleeding hemoglobin is stable she denied any SOB or YODER she was dressed and ready to go when i was seeing her. Condition: Good - Instructions Referrals: Stanley Medel MD [Staff Physician] - Azeb Jordan MD [Staff Physician] - Disposition: HOME - Home Medications Comprehensive Discharge Medication List: Ambulatory Orders Unobtainable 10/13/18
[2018-10-14 11:19] VITALS: BP 115/67; PULSE 86; TEMP 98.3
--- NOTE | 2018-10-14 14:05 | CONSULT ---
Consult - text type - Consultation Consultation Note: Covering for Dr. Medel. Jonnathant discharged this AM prior to my seeing her at bedside. Patient previously seen by me as outpatient but was discharged from my practice due to many missed appts, noncompliance with medications, would not follow instructions and complete lab work, very disorganized during few visits she made. For this hospitalization, I ordered MRI which did not show acute changes, continued white matter lesions. Was recommended to see neurologist as outpatient for MS medication. Had been on Aubagio but was held due to . Will not be able to manage this patient as outpatient for issues described above but agree, she should see neurologist and discuss medication options, risks, benefits.
== END 2018-10-14 11:12 | disposition home or self-care (01) ==
LOC: JER 02:26 → JERBED 05:26 → J5S 12:20
PROVIDERS: ADMIT Internal Medicine; ATTEND Internal Medicine
PROC: 30233N1 Transfusion of Nonautologous Red Blood Cells into Peripheral Vein, Percutaneous Approach (ICD-10-PCS; principal; 2018-10-13)
DX: D62 Acute posthemorrhagic anemia (principal); G35 Multiple sclerosis; F31.9 Bipolar disorder, unspecified; Z98.890 Other specified postprocedural states
CPT/HCPCS: 36415; 36430; 36511; 70553-TC; 71046-TC-FY; 80053; 81003; 85025; 85027; 85651; 86850; 86900; 86901; 86922; 93005; 93010; 99285-25; G0378; P9038; P9058

== ENCOUNTER 2018-10-15 23:10 | Emergency (ER) | payer OTHER ==
[2018-10-15 23:20] VITALS: BP 94/63; PULSE 78; TEMP 98; BMI 27.4
--- NOTE | 2018-10-16 00:46 | PDOC ---
History of Present Illness - General Chief Complaint: Pain Stated Complaint: KNEE PAIN Time Seen by Provider: 10/16/18 00:46 History Source: Patient - History of Present Illness Initial Comments: 10/16/18 02:07 28-year-old female complaining of bilateral lower extremity weakness "I feel like my knees are giving out" patient has a history of MS and has been off her medications due to recent . Patient signed out AMA on 10/14/18, brain MRI unchanged from previous. Patient at that time was seen by neurologist Dr. saxena. Patient reports that she has a and it was been unable to make an appointment for follow-up. Denies fevers/chills, chest pain. history of noncompliance with medication. Past History - Past Medical History Allergies/Adverse Reactions: Allergies Allergy/AdvReac Type Severity Reaction Status Date / Time latex Allergy Verified 10/15/18 23:20 Home Medications: Ambulatory Orders Unobtainable 10/13/18 Anemia: Yes COPD: No DVT: No Psychiatric Problems: Yes (BIPOLAR.) - Surgical History Abdominal Surgery: Yes - Reproductive History (#): 4 Para: 1 Therapeutic (s) & number: Yes (2) Spontaneous : 1 - Immunization History Td Vaccination: Yes TDAP Vaccination: Yes Immunization Up to Date: Yes - Suicide/Smoking/Psychosocial Hx Smoking Status: No Smoking History: Unknown if ever smoked Have you smoked in the past 12 months: No Number of Cigarettes Smoked Daily: 0 Information on smoking cessation initiated: No Hx Alcohol Use: No Drug/Substance Use Hx: No Substance Use Type: None Hx Substance Use Treatment: No Review of Systems - Review of Systems Able to Perform ROS?: Yes Is the patient limited Arabic proficient: No Musculoskeletal: Yes: Joint Pain (b/l knee pain) *Physical Exam - Vital Signs Last Vital Signs Temp Pulse Resp BP Pulse Ox 98.0 F 78 16 94/63 100 10/15/18 23:15 10/15/18 23:15 10/15/18 23:15 10/15/18 23:15 10/15/18 23:15 - Physical Exam General Appearance: Yes: Appropriately Dressed Respiratory/Chest: positive: Lungs Clear, Normal Breath Sounds Cardiovascular: positive: Regular Rhythm, Regular Rate Musculoskeletal: positive: Normal Inspection Extremity: positive: Normal Capillary Refill, Normal Inspection, Normal Range of Motion Integumentary: positive: Normal Color, Dry, Warm Neurologic: positive: Fully Oriented, Alert, Other (hypoactive reflexes at the knees) Medical Decision Making - Medical Decision Making 10/16/18 02:29 Multiple sclerosis P: neuro consult 10/16/18 02:[address] Medel. Patient currently does not have an established neurologist. recommends outpatient follow-up. Patient has call the office tomorrow for an appointment. *DC/Admit/Observation/Transfer Diagnosis at time of Disposition: Multiple sclerosis - Discharge Dispostion Disposition: HOME - Referrals Referrals: Stanley Medel MD [Staff Physician] - Call tomorrow - Patient Instructions Printed Discharge Instructions: DI for Multiple Sclerosis Additional Instructions: you may take tylenol for pain please call tomorrow to the office of Dr. Medel for an immediate follow up. Additional Instructions: * Please call your personal physician to report your Emergency Department visit and to report your progress, if any. * If there is no improvement in symptoms in 2 days call your physician. * Return to the Emergency Department for any worsening symptoms. - Post Discharge Activity
--- NOTE | 2018-10-16 01:11 | PDOC ---
History of Present Illness - General Chief Complaint: Pain Stated Complaint: KNEE PAIN Time Seen by Provider: 10/16/18 00:46 History Source: Patient Past History - Past Medical History Allergies/Adverse Reactions: Allergies Allergy/AdvReac Type Severity Reaction Status Date / Time latex Allergy Verified 10/15/18 23:20 Home Medications: Ambulatory Orders Unobtainable 10/13/18 Anemia: Yes COPD: No DVT: No Psychiatric Problems: Yes (BIPOLAR.) - Surgical History Abdominal Surgery: Yes - Reproductive History (#): 4 Para: 1 Therapeutic (s) & number: Yes (2) Spontaneous : 1 - Immunization History Td Vaccination: Yes TDAP Vaccination: Yes Immunization Up to Date: Yes - Suicide/Smoking/Psychosocial Hx Smoking Status: No Smoking History: Unknown if ever smoked Have you smoked in the past 12 months: No Number of Cigarettes Smoked Daily: 0 Information on smoking cessation initiated: No Hx Alcohol Use: No Drug/Substance Use Hx: No Substance Use Type: None Hx Substance Use Treatment: No *Physical Exam - Vital Signs Last Vital Signs Temp Pulse Resp BP Pulse Ox 98.0 F 78 16 94/63 100 10/15/18 23:15 10/15/18 23:15 10/15/18 23:15 10/15/18 23:15 10/15/18 23:15 Neuro Specific PMHX - Complaint Specific PMHX Multiple Sclerosis: Yes
== END 2018-10-16 02:36 | disposition home or self-care (01) ==
LOC: JER 23:10
DX: G35 Multiple sclerosis (principal); F31.9 Bipolar disorder, unspecified
CPT/HCPCS: 99281-25

== ENCOUNTER 2018-10-16 05:48 | Emergency (ER) | payer OTHER | END 2018-10-16 06:42 | disposition home or self-care (01) | LOC: JER 05:48 ==

== ENCOUNTER 2018-10-17 00:40 | Emergency (ER) | payer OTHER ==
[2018-10-17 01:14] VITALS: BP 106/57; PULSE 75; TEMP 97.9; BMI 25.4
--- NOTE | 2018-10-17 01:16 | PDOC ---
History of Present Illness - General Chief Complaint: Pain, Acute Stated Complaint: pain Time Seen by Provider: 10/17/18 01:16 History Source: Patient - History of Present Illness Initial Comments: 10/17/18 01:18 28 year old female history of MS noncompliant with management/ meds c/o generalized pain to her hands and hip. seen yesterday for b/l knee pain. Neurology was consulted advised to follow up with neurologist to establish care again with Dr. Medel. denrafita NVD, abdominal pain Past History - Past Medical History Allergies/Adverse Reactions: Allergies Allergy/AdvReac Type Severity Reaction Status Date / Time latex Allergy Verified 10/17/18 01:14 Home Medications: Ambulatory Orders Unobtainable 10/13/18 Anemia: Yes COPD: No DVT: No Psychiatric Problems: Yes (BIPOLAR) - Surgical History Abdominal Surgery: Yes - Reproductive History (#): 4 Para: 1 Therapeutic (s) & number: Yes (2) Spontaneous : 1 - Immunization History Td Vaccination: Yes TDAP Vaccination: Yes Immunization Up to Date: Yes - Suicide/Smoking/Psychosocial Hx Smoking Status: No Smoking History: Never smoked Have you smoked in the past 12 months: No Number of Cigarettes Smoked Daily: 0 Hx Alcohol Use: No Drug/Substance Use Hx: No Substance Use Type: None Hx Substance Use Treatment: No Review of Systems - Review of Systems Able to Perform ROS?: Yes Is the patient limited Palauan proficient: No Constitutional: No: Symptoms Reported, See HPI, Chills, Diaphoresis, Fever, Loss of Appetite, Malaise, Night Sweats, Weakness, Weight Stable, Unintentional Wgt. Loss, Unexplained wgt Loss, Other Musculoskeletal: Yes: Joint Pain. No: Symptoms Reported, See HPI, Back Pain, Gout, Joint Swelling, Muscle Pain, Muscle Weakness, Neck Pain, Joint Stiffness, Other Integumentary: No: Symptoms Reported, See HPI, Bruising, Change in Color, Change in Hair/Nails, Dryness, Erythema, Flushing, Lesions, Lumps, Pallor, Pruritus, Rash, Sweating, Other *Physical Exam - Vital Signs Last Vital Signs Temp Pulse Resp BP Pulse Ox 97.9 F 75 18 106/57 L 99 10/17/18 01:12 10/17/18 01:12 10/17/18 01:12 10/17/18 01:12 10/17/18 01:12 - Physical Exam General Appearance: Yes: Appropriately Dressed Musculoskeletal: positive: Normal Inspection Extremity: positive: Normal Capillary Refill, Normal Inspection Integumentary: positive: Normal Color, Dry, Warm Neurologic: positive: Fully Oriented, Alert Medical Decision Making - Medical Decision Making Multiple sclerosis; malingering? P: tylenol outpatient neurology follow up discussed with patient. *DC/Admit/Observation/Transfer Diagnosis at time of Disposition: Multiple sclerosis - Discharge Dispostion Disposition: HOME Condition at time of disposition: Stable - Referrals Referrals: Stanley Medel MD [Staff Physician] - - Patient Instructions Printed Discharge Instructions: Multiple Sclerosis -- Adult Additional Instructions: please follow up with Dr. Medel as planned. Additional Instructions: * Please call your personal physician to report your Emergency Department visit and to report your progress, if any. * If there is no improvement in symptoms in 2 days call your physician. * Return to the Emergency Department for any worsening symptoms. - Post Discharge Activity
[2018-10-17] MEDS ORDERED: ACETAMINOPHEN 325 MG TABLET (FP) PO ONE (01:18)
[2018-10-17] MEDS ORDERED: ACETAMINOPHEN 325 MG TABLET (FP) ONE (01:21)
== END 2018-10-17 02:19 | disposition home or self-care (01) ==
LOC: JER 00:40
DX: G35 Multiple sclerosis (principal)
CPT/HCPCS: 99282-25

== ENCOUNTER 2018-10-17 23:11 | Emergency (ER) | payer OTHER ==
[2018-10-17 23:39] VITALS: BP 135/74; PULSE 77; TEMP 98.1; BMI 25.7
--- NOTE | 2018-10-18 00:03 | PDOC ---
*Physical Exam - Vital Signs Last Vital Signs Temp Pulse Resp BP Pulse Ox 98.1 F 77 18 135/74 100 10/17/18 23:11 10/17/18 23:11 10/17/18 23:11 10/17/18 23:11 10/17/18 23:11 Medical Decision Making - Medical Decision Making 10/18/18 00:02 Patient seen by the advanced practice provider under my direct supervision. Ancillary testing reviewed as necessary. I agree with plan as outlined by the advanced practice provider. *DC/Admit/Observation/Transfer Diagnosis at time of Disposition: Malingering Knee pain, bilateral Qualifiers: Chronicity: unspecified Qualified Code(s): M25.561 - Pain in right knee - Discharge Dispostion Disposition: HOME Condition at time of disposition: Stable - Referrals Referrals: Stanley Medel MD [Staff Physician] - - Patient Instructions Additional Instructions: Make an appointment with Dr. Medel for reevaluation and to restart her medications for MS. Take Tylenol or Motrin as needed for knee pain. Return to emergency department for any new or worsening symptoms. Thank you very much for choosing us to provide your emergent health care needs. - Post Discharge Activity
[2018-10-18] MEDS ORDERED: ACETAMINOPHEN 325 MG TABLET (FP) PO ONE (00:11)
--- NOTE | 2018-10-18 00:11 | PDOC ---
History of Present Illness - General Chief Complaint: Pain Stated Complaint: PAIN Time Seen by Provider: 10/17/18 23:51 History Source: Patient, Old Records Exam Limitations: No Limitations - History of Present Illness Initial Comments: 10/18/18 00:12 HISTORY OF PRESENT ILLNESS: 28-year-old woman past medical history of MS status post delivery on 10/07 presents emergency department for evaluation of bilateral lower extremity pain which she describes as a burning sensation concentrated mostly on her knees. She denies trauma. Patient reports she was seen Dr. Mackey was discharged from his service is been recommended to follow- up with Dr. Medel which she has not contacted for appointment. Patient has had multiple ER visits over the past 7 days for similar complaints. No recent travel or sick contacts. PAST MEDICAL HISTORY: see HPI SURGICAL HISTORY: Denies ALLERGIES: Latex. No known drug allergies. REVIEW OF SYSTEMS General/Constitutional: Denies fever or chills. Denies weakness, weight change. HEENT: Denies change in vision. Denies ear pain or discharge. Denies sore throat. Cardiovascular: Denies chest pain or shortness of breath. Respiratory: Denies cough, wheezing, or hemoptysis. Gastrointestinal: Denies nausea, vomiting, diarrhea or constipation. Denies rectal bleeding. Genitourinary: Denies dysuria, frequency, or change in urination. Musculoskeletal: seer HPI Skin and breasts: Denies rash or easy bruising. Neurologic: Denies headache, vertigo, loss of consciousness, or loss of sensation. Psychiatric: Denies depression or anxiety. Endocrine: Denies increased thirst. Denies abnormal weight change. Hematologic/Lymphatic: Denies anemia, easy bleeding, or history of blood clots. Allergic/Immunologic: Denies hives or skin allergy. PHYSICAL EXAM General Appearance: Well-appearing, appropriately dressed. No apparent distress , no intoxication. Respiratory/Chest: Lungs CTAB. No shortness of breath, chest tenderness, respiratory distress, accessory muscle use. No crackles, rales, rhonchi, stridor , wheezing, dullness Cardiovascular: RRR. S1, S2. No JVD, murmur, bradycardia, tachycardia. Vascular Pulses: Dorsalis-Pedis (R): 2+, Dorsalis-Pedis (L): 2+ Gastrointestinal/Abdominal: Normal bowel sounds. Abdomen soft, non-distended. No tenderness or rebound tenderness. No organomegaly, pulsatile mass, guarding, hernia, hepatomegaly, splenomegaly. Lymphatic: No adenopathy, tenderness. Musculoskeletal/Extremities: Normal inspection. Normal capillary refill. Pelvis Stable. No CVA tenderness. No tenderness to extremities, pedal edema, swelling, erythema or deformity. No tenderness to palpation to hips, femur, patella, tibia or fibula is bilaterally. No crepitus, deformities, step offs present upon palpation. No bony tenderness noted. Full active range of motion present. Integumentary: Appropriate color, dry, warm. No cyanosis, erythema, jaundice or rash Neurologic: member of technical staff II-XII intact. Fully oriented, alert. Appropriate mood/affect. Motor strength 5/5. No appreciable EOM palsy, facial droop or sensory deficit. Full sensation is present to bilateral lower extremities. Able to perform straight leg raises without difficulty. 10/18/18 00:17 Past History - Past Medical History Allergies/Adverse Reactions: Allergies Allergy/AdvReac Type Severity Reaction Status Date / Time latex Allergy Verified 10/17/18 23:39 Home Medications: Ambulatory Orders Unobtainable 10/13/18 Anemia: Yes COPD: No DVT: No Psychiatric Problems: Yes (BIPOLAR) - Surgical History Abdominal Surgery: Yes - Reproductive History (#): 4 Para: 1 Therapeutic (s) & number: Yes (2) Spontaneous : 1 - Immunization History Td Vaccination: Yes TDAP Vaccination: Yes Immunization Up to Date: Yes - Suicide/Smoking/Psychosocial Hx Smoking Status: No Smoking History: Never smoked Have you smoked in the past 12 months: No Number of Cigarettes Smoked Daily: 0 Information on smoking cessation initiated: No Hx Alcohol Use: No Drug/Substance Use Hx: No Substance Use Type: None Hx Substance Use Treatment: No *Physical Exam - Vital Signs Last Vital Signs Temp Pulse Resp BP Pulse Ox 98.1 F 77 18 135/74 100 10/17/18 23:11 10/17/18 23:11 10/17/18 23:11 10/17/18 23:11 10/17/18 23:11 Medical Decision Making - Medical Decision Making 10/18/18 00:16 A/P: 28-year-old woman with bilateral lower extremity pain Patient had an MRI 10/14 which was evaluated by Dr. Mackey. No acute changes with continued white matter lesions present. Given multiple visits with normal exam it is evident malingering behavior is present. Given normal physical exam I will treat the patient with Tylenol 650 mg orally now and discharge home to follow-up with neurology. *DC/Admit/Observation/Transfer Diagnosis at time of Disposition: Malingering Knee pain, bilateral Qualifiers: Chronicity: unspecified Qualified Code(s): M25.561 - Pain in right knee - Discharge Dispostion Disposition: HOME Condition at time of disposition: Stable Decision to Admit order: No - Referrals Referrals: Stanley Medel MD [Staff Physician] - - Patient Instructions Additional Instructions: Make an appointment with Dr. Medel for reevaluation and to restart her medications for MS. Take Tylenol or Motrin as needed for knee pain. Return to emergency department for any new or worsening symptoms. Thank you very much for choosing us to provide your emergent health care needs. - Post Discharge Activity
[2018-10-18] MEDS ORDERED: ACETAMINOPHEN 325 MG TABLET (FP) ONE (00:20)
== END 2018-10-18 03:00 | disposition home or self-care (01) ==
LOC: JER 23:11
DX: Z76.5 Malingerer [conscious simulation] (principal); M25.561 Pain in right knee
CPT/HCPCS: 99282-25

== ENCOUNTER 2018-10-18 21:51 | Emergency (ER) | payer OTHER ==
--- NOTE | 2018-10-18 21:54 | PDOC ---
Rapid Medical Evaluation Medical Evaluation: Allergies Allergy/AdvReac Type Severity Reaction Status Date / Time latex Allergy Verified 10/17/18 23:39 I have performed a brief in-person evaluation of this patient. The patient presents with a chief complaint of: Hx of MS, presents with generalized body aches; has been in the ED every day this week for similar complaint; had appointment with Dr. Akhtar today, but states he was not there Pertinent physical exam findings: In NAD I have ordered the following: Nothing The patient will proceed to the ED for further evaluation. 10/18/18 21:53
[2018-10-18 21:56] VITALS: BP 113/60; PULSE 88; TEMP 97.8; BMI 25.7
[2018-10-18] MEDS ORDERED: IBUPROFEN 400 MG TABLET (FP) PO ONE ×2 (22:36→22:46)
--- NOTE | 2018-10-18 22:39 | PDOC ---
History of Present Illness - General Chief Complaint: Chronic pain Stated Complaint: pain Time Seen by Provider: 10/18/18 21:53 History Source: Patient Exam Limitations: Clinical Condition - History of Present Illness Initial Comments: 10/18/18 22:40 Patient with history of multiple sclerosis and noncompliant with treatment present with complaint of bilateral knee and body pains which has not been improving with Tylenol. Patient how multiple visit this week with visit almost every day with same complaint and advised to follow up with neurology but never follows up. Patient reported having neurology appointment today back provider was not in clinic when she showed up and does not know when is her next appointment. Patient has been noncompliant in the past with neurology visits. Timing/Duration: 1 week Past History - Past Medical History Allergies/Adverse Reactions: Allergies Allergy/AdvReac Type Severity Reaction Status Date / Time latex Allergy Verified 10/17/18 23:39 Home Medications: Ambulatory Orders Ibuprofen 800 mg PO Q8H PRN #20 tablet 10/18/18 Anemia: Yes COPD: No DVT: No Psychiatric Problems: Yes (BIPOLAR) - Surgical History Abdominal Surgery: Yes - Reproductive History (#): 4 Para: 1 Therapeutic (s) & number: Yes (2) Spontaneous : 1 - Immunization History Td Vaccination: Yes TDAP Vaccination: Yes Immunization Up to Date: Yes - Suicide/Smoking/Psychosocial Hx Smoking Status: No Smoking History: Never smoked Have you smoked in the past 12 months: No Number of Cigarettes Smoked Daily: 0 Information on smoking cessation initiated: No Hx Alcohol Use: No Drug/Substance Use Hx: No Substance Use Type: None Hx Substance Use Treatment: No Review of Systems - Review of Systems Able to Perform ROS?: Yes Is the patient limited [place] Citizen proficient: No Constitutional: Yes: Malaise. No: Chills, Fever, Weakness HEENTM: No: Symptoms Reported Respiratory: No: Symptoms reported Cardiac (ROS): No: Symptoms Reported ABD/GI: No: Symptoms Reported Musculoskeletal: Yes: Symptoms Reported, See HPI, Joint Pain (b/l knee pain), Muscle Pain (whole body pain). No: Muscle Weakness Neurological: No: Numbness, Unsteady Gait All Other Systems: Reviewed and Negative *Physical Exam - Vital Signs Last Vital Signs Temp Pulse Resp BP Pulse Ox 97.8 F 88 17 113/60 100 10/18/18 21:52 10/18/18 21:52 10/18/18 21:52 10/18/18 21:52 10/18/18 21:52 - Physical Exam Comments: 10/18/18 22:46 GENERAL: Well developed, well nourished. Awake and alert. No acute distress. CARDIOVASCULAR: Regular rate and rhythm. No murmurs, rubs, or gallops. PULMONARY: No evidence of respiratory distress. Lungs clear to auscultation bilaterally. No wheezing, rales or rhonchi. ABDOMINAL: Soft. Non-tender. Non-distended. No rebound or guarding. No organomegaly. Normoactive bowel sounds MUSCULOSKELETAL : subjective TTP over b/l knees. FROM of knees. negative anterior-posterior drawer test of b/l knees. No knee swelling or effusions.No bony deformities SKIN: Warm and dry. Normal capillary refill. No rashes. NEUROLOGICAL: Alert, awake, appropriate. No motor deficits in the lower extremities. Gait is normal without ataxia. PSYCHIATRIC: Cooperative. Good eye contact. Appropriate mood and affect. General Appearance: Yes: Nourished, Appropriately Dressed. No: Apparent Distress Neck: positive: Supple Respiratory/Chest: negative: Respiratory Distress Cardiovascular: negative: Regular Rhythm, Regular Rate Medical Decision Making - Medical Decision Making 10/18/18 22:41 Patient with history of multiple sclerosis and noncompliant with treatment present with complaint of bilateral knee and body pains which has not been improving with Tylenol. Patient how multiple visit this week with visit almost every day with same complaint and advised to follow up with neurology but never follows up. Patient reported having neurology appointment today back provider was not in clinic when she showed up and does not know when is her next appointment. Patient has been noncompliant in the past with neurology visits. Clinical exam unremarkable and patient ambulating without difficulty with normal gait. Ibuprofen 800 mg by mouth ordered for pain. Patient stable for discharge on Motrin when necessary for pain with neurology follow-up *DC/Admit/Observation/Transfer Diagnosis at time of Disposition: Multiple sclerosis, Myalgia - Discharge Dispostion Disposition: HOME Condition at time of disposition: Stable Decision to Admit order: No - Prescriptions Prescriptions: Ibuprofen 800 mg PO Q8H PRN #20 tablet PRN Reason: pain - Referrals Referrals: Fam Quintana MD [Staff Physician] - - Patient Instructions Printed Discharge Instructions: Multiple Sclerosis -- Adult Additional Instructions: Take prescribed medication as needed for pain. Follow-up with referred neurologist - Post Discharge Activity
== END 2018-10-18 23:00 | disposition home or self-care (01) ==
LOC: JER 21:51 → JERFT 21:51
DX: G35 Multiple sclerosis (principal); M79.10 Myalgia, unspecified site
CPT/HCPCS: 99281-25

== ENCOUNTER 2018-10-23 01:22 | Emergency (ER) | payer OTHER ==
[2018-10-23 01:42] VITALS: BMI 25.4
--- NOTE | 2018-10-23 02:53 | PDOC ---
*Physical Exam - Vital Signs Last Vital Signs Temp Pulse Resp BP Pulse Ox 98.1 F 88 19 116/84 97 10/23/18 01:22 10/23/18 01:22 10/23/18 01:22 10/23/18 01:22 10/23/18 01:22 Medical Decision Making - Medical Decision Making 10/23/18 02:53 Patient seen by the advanced practice provider under my direct supervision. Ancillary testing reviewed as necessary. I agree with plan as outlined by the advanced practice provider. *DC/Admit/Observation/Transfer Diagnosis at time of Disposition: Dysesthesia - Discharge Dispostion Condition at time of disposition: Fair - Referrals Referrals: Jose Iverson [Primary Care Provider] - - Patient Instructions - Post Discharge Activity
--- NOTE | 2018-10-23 03:09 | PDOC ---
History of Present Illness - General Chief Complaint: Chronic pain Stated Complaint: PAIN Time Seen by Provider: 10/23/18 02:49 History Source: Patient - History of Present Illness Initial Comments: 10/23/18 04:25 28-year-old female complaining of bilateral lower extremity pain. patient has a history of MS and has been off her medications due to recent . patient reports that she has not followed up with neurology. patient appears disheveled Past History - Past Medical History Allergies/Adverse Reactions: Allergies Allergy/AdvReac Type Severity Reaction Status Date / Time latex Allergy Verified 10/23/18 01:42 Home Medications: Ambulatory Orders Ibuprofen 800 mg PO Q8H PRN #20 tablet 10/18/18 Anemia: Yes COPD: No DVT: No Psychiatric Problems: Yes (BIPOLAR) - Surgical History Abdominal Surgery: Yes - Reproductive History (#): 4 Para: 1 Therapeutic (s) & number: Yes (2) Spontaneous : 1 - Immunization History Td Vaccination: Yes TDAP Vaccination: Yes Immunization Up to Date: Yes - Suicide/Smoking/Psychosocial Hx Smoking Status: No Smoking History: Current some day smoker Have you smoked in the past 12 months: Yes Number of Cigarettes Smoked Daily: 0 Information on smoking cessation initiated: No Hx Alcohol Use: Yes Drug/Substance Use Hx: No Substance Use Type: None Hx Substance Use Treatment: No Review of Systems - Review of Systems Able to Perform ROS?: Yes Is the patient limited [place]i proficient: No Constitutional: No: Symptoms Reported, See HPI, Chills, Diaphoresis, Fever, Loss of Appetite, Malaise, Night Sweats, Weakness, Weight Stable, Unintentional Wgt. Loss, Unexplained wgt Loss, Other Neurological: Yes: Other (leg pain) *Physical Exam - Vital Signs Last Vital Signs Temp Pulse Resp BP Pulse Ox 98.1 F 88 19 116/84 97 10/23/18 01:22 10/23/18 01:22 10/23/18 01:22 10/23/18 01:22 10/23/18 01:22 - Physical Exam General Appearance: Yes: Appropriately Dressed Musculoskeletal: positive: Normal Inspection, Other (walking around) Extremity: positive: Normal Capillary Refill, Normal Inspection, Normal Range of Motion Neurologic: positive: Fully Oriented, Alert Medical Decision Making - Medical Decision Making 10/23/18 05:39 A: leg pain/ weakness chronic. P: patient likely malingering. frequent visits to this ER for similar complaint. patient has not followed up with pcp. *DC/Admit/Observation/Transfer Diagnosis at time of Disposition: Multiple sclerosis, Malingering, Leg pain, bilateral - Discharge Dispostion Disposition: HOME Condition at time of disposition: Fair - Referrals Referrals: Jose Iverson [Primary Care Provider] - - Patient Instructions Printed Discharge Instructions: Multiple Sclerosis -- Adult - Post Discharge Activity Forms/Work/School Notes: Back to School
[2018-10-23] MEDS ORDERED: ACETAMINOPHEN 325 MG TABLET (FP) PO ONE (04:35)
[2018-10-23] MEDS ORDERED: ACETAMINOPHEN 325 MG TABLET (FP) ONE (04:42)
[2018-10-23 06:53] VITALS: BP 112/80; PULSE 90; TEMP 97.9
== END 2018-10-23 07:03 | disposition home or self-care (01) ==
LOC: JER 01:22
DX: G35 Multiple sclerosis (principal); Z76.5 Malingerer [conscious simulation]; M79.605 Pain in left leg; M79.604 Pain in right leg
CPT/HCPCS: 99282-25

== ENCOUNTER 2018-10-24 00:29 | Emergency (ER) | payer OTHER ==
[2018-10-24 01:31] VITALS: BP 101/60; PULSE 70; TEMP 97.5; BMI 31.1
--- NOTE | 2018-10-24 01:34 | PDOC ---
*Physical Exam - Vital Signs Last Vital Signs Temp Pulse Resp BP Pulse Ox 97.5 F L 70 18 101/60 99 10/24/18 00:29 10/24/18 00:29 10/24/18 00:29 10/24/18 00:29 10/24/18 00:29 Medical Decision Making - Medical Decision Making 10/24/18 01:34 Patient seen by the advanced practice provider under my direct supervision. Ancillary testing reviewed as necessary. I agree with plan as outlined by the advanced practice provider. *DC/Admit/Observation/Transfer Diagnosis at time of Disposition: Bilateral knee pain Qualifiers: Chronicity: acute Qualified Code(s): M25.561 - Pain in right knee - Discharge Dispostion Disposition: HOME Condition at time of disposition: Fair - Referrals Referrals: Jose Iverson [Primary Care Provider] - 2 Days - Patient Instructions - Post Discharge Activity
--- NOTE | 2018-10-24 01:41 | PDOC ---
History of Present Illness - General Chief Complaint: Pain, Acute Stated Complaint: FALL Time Seen by Provider: 10/24/18 01:28 History Source: Patient Exam Limitations: No Limitations Past History - Past Medical History Allergies/Adverse Reactions: Allergies Allergy/AdvReac Type Severity Reaction Status Date / Time latex Allergy Verified 10/23/18 01:42 Home Medications: Ambulatory Orders NK [No Known Home Medication] 10/23/18 Anemia: Yes COPD: No DVT: No Psychiatric Problems: Yes (BIPOLAR) - Surgical History Abdominal Surgery: Yes - Reproductive History (#): 4 Para: 1 Therapeutic (s) & number: Yes (2) Spontaneous : 1 - Immunization History Td Vaccination: Yes TDAP Vaccination: Yes Immunization Up to Date: Yes - Suicide/Smoking/Psychosocial Hx Smoking Status: No Smoking History: Current some day smoker Have you smoked in the past 12 months: Yes Number of Cigarettes Smoked Daily: 0 Information on smoking cessation initiated: No Hx Alcohol Use: Yes Drug/Substance Use Hx: Yes Substance Use Type: None Hx Substance Use Treatment: No *Physical Exam - Vital Signs Last Vital Signs Temp Pulse Resp BP Pulse Ox 97.5 F L 70 18 101/60 99 10/24/18 00:29 10/24/18 00:29 10/24/18 00:29 10/24/18 00:29 10/24/18 00:29 - Physical Exam General Appearance: No: Apparent Distress Respiratory/Chest: positive: Lungs Clear, Normal Breath Sounds. negative: Respiratory Distress Cardiovascular: positive: Regular Rhythm, Regular Rate, S1, S2. negative: Murmur Gastrointestinal/Abdominal: positive: Normal Bowel Sounds, Soft. negative: Tender, Distended, Guarding, Rebound Musculoskeletal: positive: Normal Inspection Extremity: positive: Normal Range of Motion Integumentary: positive: Normal Color Neurologic: positive: Fully Oriented, Alert, Normal Mood/Affect Medical Decision Making - Medical Decision Making 28 y/o F hx of MS and bipolar disorder presents with B/L knee pain going on since her delivery on 10/07/18. Patient with multiple visits to the ED for same complaint; was just seen last night for same reason. Patient was following with Dr. Mackey for her MS but has been lost to follow-up. States she no longer wishes to follow-up with him and has an appointment with another neurologist but it is not until 11/07; states they refused to give her an earlier appointment. Denies fever, sob, cp, abd pain, n/v, changes to vision/gait Patient ambulatory in NAD Given Motrin Explained she needs to f/u with her neurologist and PCP for further care 10/24/18 01:38 *DC/Admit/Observation/Transfer Diagnosis at time of Disposition: Bilateral knee pain Qualifiers: Chronicity: acute Qualified Code(s): M25.561 - Pain in right knee; M25.562 - Pain in left knee - Discharge Dispostion Disposition: HOME Condition at time of disposition: Fair Decision to Admit order: No - Referrals Referrals: Jose Iverson [Primary Care Provider] - 2 Days - Patient Instructions - Post Discharge Activity
[2018-10-24] MEDS ORDERED: IBUPROFEN 600 MG TABLET (FP) PO ONE ×2 (01:49→01:54)
== END 2018-10-24 07:10 | disposition home or self-care (01) ==
LOC: JER 00:29
DX: M25.561 Pain in right knee (principal); M25.562 Pain in left knee; F31.9 Bipolar disorder, unspecified; F17.210 Nicotine dependence, cigarettes, uncomplicated
CPT/HCPCS: 99282-25

== ENCOUNTER 2019-04-27 19:56 | Emergency (ER) | payer OTHER ==
[2019-04-27 20:05] VITALS: BP 139/62; PULSE 100; TEMP 98.7; BMI 24.1
[2019-04-27] MEDS ORDERED: KETOROLAC TROMETHAMINE 60 MG/2 ML VIAL IM ONE (21:30)
--- NOTE | 2019-04-27 21:38 | PDOC ---
History of Present Illness - General Chief Complaint: Chronic pain Stated Complaint: PELVIC DISCOMFORT Time Seen by Provider: 04/27/19 20:53 History Source: Patient Exam Limitations: Clinical Condition - History of Present Illness Initial Comments: 04/27/19 21:58 Patient with history of multiple sclerosis with multiple ED visit seeking pain meds presented with complaint of 3 weeks history of bilateral pelvic pain which has not been improving with home tramadol and Robaxin. Patient reports she was seen in another ED for same symptoms and was given tramadol which she ran out. Patient has been seen multiple times in this ED with same complaint and never follows up as instructed for management of her multiple sclerosis. Patient reports she was not able to follow-up with her last visit for multiple sclerosis 5 months ago because she just had a baby and did not have the time but have been to multiple ED's seeking pain management. Is this a multiple visit Asthma Patient?: No Timing/Duration: other (3 weeks) Past History - Past Medical History Allergies/Adverse Reactions: Allergies Allergy/AdvReac Type Severity Reaction Status Date / Time latex Allergy Verified 04/27/19 20:05 Home Medications: Ambulatory Orders Methocarbamol [Robaxin -] 500 mg PO BID #14 tablet 04/27/19 Naproxen 500 mg PO BID PRN #20 tablet 04/27/19 Anemia: Yes COPD: No DVT: No Psychiatric Problems: Yes (BIPOLAR) - Surgical History Abdominal Surgery: Yes - Reproductive History (#): 4 Para: 1 Therapeutic (s) & number: Yes (2) Spontaneous : 1 - Immunization History Td Vaccination: Yes TDAP Vaccination: Yes Immunization Up to Date: Yes - Psycho Social/Smoking Cessation Hx Smoking Status: No Smoking History: Never smoked Have you smoked in the past 12 months: No Number of Cigarettes Smoked Daily: 0 Hx Alcohol Use: No Drug/Substance Use Hx: No Substance Use Type: None Hx Substance Use Treatment: No Review of Systems - Review of Systems Able to Perform ROS?: Yes Is the patient limited Algerian proficient: No Constitutional: No: Malaise, Weakness HEENTM: No: Symptoms Reported Respiratory: No: Symptoms reported Cardiac (ROS): No: Symptoms Reported Musculoskeletal: Yes: Symptoms Reported, See HPI, Muscle Pain (b/l groin pain) Integumentary: No: Symptoms Reported Neurological: No: Symptoms reported, Numbness, Paresthesia, Tingling All Other Systems: Reviewed and Negative *Physical Exam - Vital Signs Last Vital Signs Temp Pulse Resp BP Pulse Ox 98.7 F 100 H 20 139/62 99 04/27/19 19:59 04/27/19 19:59 04/27/19 19:59 04/27/19 19:59 04/27/19 19:59 - Physical Exam General Appearance: Yes: Nourished, Appropriately Dressed. No: Apparent Distress HEENT: positive: Normal ENT Inspection Neck: negative: Supple Respiratory/Chest: positive: Lungs Clear, Normal Breath Sounds. negative: Respiratory Distress, Accessory Muscle Use Cardiovascular: positive: Regular Rhythm, Regular Rate Musculoskeletal: positive: Normal Inspection Extremity: positive: Normal Inspection, Normal Range of Motion, Pelvis Stable Integumentary: positive: Normal Color Neurologic: positive: Fully Oriented, Alert, Normal Mood/Affect, Normal Response Medical Decision Making - Medical Decision Making 04/27/19 22:02 Patient with history of multiple sclerosis with multiple ED visit seeking pain meds presented with complaint of 3 weeks history of bilateral pelvic pain which has not been improving with home tramadol and Robaxin. Patient reports she was seen in another ED for same symptoms and was given tramadol which she ran out. Patient has been seen multiple times in this ED with same complaint and never follows up as instructed for management of her multiple sclerosis. Patient reports she was not able to follow-up with her last visit for multiple sclerosis 5 months ago because she just had a baby and did not have the time but have been to multiple ED's seeking pain management. Patient likely pain secondary requesting more stronger pain medication than Ultram given by [place]. Patient advised she will need to follow-up with neurology for management of her multiple sclerosis and will not be given narcotic for pain. Naproxen Rx sent for pain and Robaxin for spasm with advised to follow-up with neurology for management of her multiple sclerosis Discharge - Discharge Information Problems reviewed: Yes Clinical Impression/Diagnosis: Multiple sclerosis, Pelvic pain Condition: Stable Disposition: HOME - Admission No - Additional Discharge Information Prescriptions: Methocarbamol [Robaxin -] 500 mg PO BID #14 tablet Naproxen 500 mg PO BID PRN #20 tablet PRN Reason: pain - Follow up/Referral Referrals: Fam Quintana MD [Staff Physician] - - Patient Discharge Instructions Patient Printed Discharge Instructions: Multiple Sclerosis -- Adult Additional Instructions: Take medication as prescribed for pain. Follow-up with referred neurologist for multiple sclerosis. It is important to follow-up with neurologist for management of multiple sclerosis - Post Discharge Activity
[2019-04-27] MEDS ORDERED: KETOROLAC TROMETHAMINE 60 MG/2 ML VIAL ONE (21:49)
== END 2019-04-27 21:56 | disposition home or self-care (01) ==
LOC: JERFT 19:56
PROC: 3E0233Z Introduction of Anti-inflammatory into Muscle, Percutaneous Approach (ICD-10-PCS; principal; 2019-04-27)
DX: G35 Multiple sclerosis (principal); R10.2 Pelvic and perineal pain; D64.9 Anemia, unspecified; F41.9 Anxiety disorder, unspecified; Z91.040 Latex allergy status
CPT/HCPCS: 99281-25

== ENCOUNTER 2020-01-30 13:39 | Emergency (ER) | payer OTHER ==
[2020-01-30 13:58] VITALS: BMI 54.4
[2020-01-30] MEDS ORDERED: SODIUM CHLORIDE 1,000 ML IV STA (14:57)
--- NOTE | 2020-01-30 15:03 | PDOC ---
History of Present Illness - General Chief Complaint: Diarrhea Stated Complaint: DIARRHEA Time Seen by Provider: 01/30/20 14:48 History Source: Patient Exam Limitations: No Limitations - History of Present Illness Initial Comments: 01/30/20 14:58 Patient is a 30-year-old female with a history of MS who presents to the ED with complaint of 3 days of diarrhea. She states today the diarrhea became green in color. She is going roughly 4 times a day. She denies any blood in her stool. She states that she is "addicted to [employer] iced coffee" and she believes that is what is causing her problem. She denies any fevers or chills. She denies any abdominal pain. She denies any nausea or vomiting. She states that she ate [employer] hashbrowns recently and that could have made her sick. She denies any recent travel. Past History - Medical History Allergies/Adverse Reactions: Allergies Allergy/AdvReac Type Severity Reaction Status Date / Time latex Allergy Verified 01/30/20 13:58 Home Medications: Ambulatory Orders Methocarbamol [Robaxin -] 500 mg PO BID #14 tablet 04/27/19 Naproxen 500 mg PO BID PRN #20 tablet 04/27/19 Loperamide HCl [Imodium -] 2 mg PO BID PRN #6 capsule 01/30/20 Anemia: Yes COPD: No DVT: No Psychiatric Problems: Yes (BIPOLAR) - Surgical History Abdominal Surgery: Yes - Reproductive History Is Patient Now?: No (#): 4 Para: 1 Therapeutic (s) & number: Yes (2) Spontaneous : 1 - Immunization History Td Vaccination: Yes TDAP Vaccination: Yes Immunization Up to Date: Yes - Psycho-Social/Smoking History Smoking Status: No Smoking History: Never smoked Have you smoked in the past 12 months: No Number of Cigarettes Smoked Daily: 0 Information on smoking cessation initiated: No - Substance Abuse Hx (Audit-C & DAST Scrn) How often the patient has a drink containing alcohol: Monthly or less Number of drinks the patient has on a typical day: 5 or 6 Score: In Men: 4 or > Positive; In Women: 3 or > Positive: 3 Screen Result (Pos requires Nsg. Audit-10AR): Positive In the last yr the pt used illegal drug/Rx for NonMed reason: No Score: Yes response is considered Positive: 0 Screen Result (Positive result requires Nsg. DAST-10): Negative Review of Systems - Review of Systems Comments:: 01/30/20 14:59 - Review of Systems Able to Perform ROS?: Yes Constitutional: No: Fever, Chills, Loss of Appetite, Night Sweats, Weakness HEENTM: No: Eye Pain, Vision changes, Ear Pain, Throat Pain, Throat Swelling, Mouth Pain, Difficulty Swallowing Respiratory: No: Cough, Shortness of Breath, Wheezing, Sputum Production Cardiac (ROS): No: Chest Pain, Chest Tightness, Palpitations, Irregular Heart Beat, Edema ABD/GI: No: Nausea, Vomiting, Abdominal Pain, Positive: Diarrhea : No Dysuria, No Hematuria, No Frequency, No Urgency, No Vaginal Discharge/Pain Musculoskeletal: No: Muscle Pain, Back Pain, Joint Pain, Muscle Weakness, Neck Pain Integumentary: No: Lesions, Rash Neurological: No: Headache, Numbness, Tingling, Weakness, Speech Difficulties *Physical Exam - Vital Signs Last Vital Signs Temp Pulse Resp BP Pulse Ox 98.2 F 70 17 100/51 L 100 01/30/20 13:54 01/30/20 13:54 01/30/20 13:54 01/30/20 13:54 01/30/20 13:54 - Physical Exam 01/30/20 15:00 - Physical Exam General Appearance: Nourished, Appropriately Dressed, No Distress HEENT: EOMI, Normal Voice, No Rhinorrhea Neck: Supple, No Lymphadenopathy (R), No Lymphadenopathy (L), No Rigidity, No Decreased range of motion Respiratory/Chest: Lungs Clear, Normal Breath Sounds. No Respiratory Distress, No Accessory Muscle Use Cardiovascular: Regular Rhythm, Regular Rate, S1, S2 Gastrointestinal/Abdominal: Normal Bowel Sounds, Soft. Non-tender, No Guarding, No Rebound, No Rigidity; No reproducible abdominal tenderness to palpation. No CVA tenderness bilaterally. Soft abdomen, nontympanitic Musculoskeletal: Normal Inspection. No Decreased Range of Motion Extremity: Normal Capillary Refill, Normal Inspection Integumentary: Normal Color, Dry. No Rash Neurologic: mattress stripper II-XII NML intact, Fully Oriented, Alert, Normal Mood/Affect, Normal Response ED Treatment Course - LABORATORY CBC & Chemistry Diagram: 01/30/20 15:15 01/30/20 15:15 Medical Decision Making - Medical Decision Making 01/30/20 15:01 Assessment: Patient is a 30-year-old female with diarrhea for the last 3 days. Plan: -Saline lock and 1 L of NS ordered -Labs ordered -Will reassess 01/30/20 18:51 The patient has been made aware that her labs are all within normal limits. She has continued to have diarrhea in the ED but she has been drinking without difficulty. 1 Imodium has been given to the patient in the ED. She will be discharged with a prescription for Imodium as well. She understands and agrees with this treatment plan and she is stable for discharge. Discharge - Discharge Information Problems reviewed: Yes Clinical Impression/Diagnosis: Diarrhea Qualifiers: Diarrhea type: unspecified type Qualified Code(s): R19.7 - Diarrhea, unspecified Condition: Stable Disposition: HOME - Additional Discharge Information Prescriptions: Loperamide HCl [Imodium -] 2 mg PO BID PRN #6 capsule PRN Reason: Diarrhea - Follow up/Referral Referrals: Jose Iverson [Primary Care Provider] - 2 Days - Patient Discharge Instructions Patient Printed Discharge Instructions: DI for Diarrhea and Traveler's Diarrhea -- Adult Additional Instructions: Drink plenty of fluids and get plenty of rest. Be sure to avoid caffeine if possible because this can increase having diarrhea. Take the Imodium only as needed if you continue to have symptoms. Be sure to follow-up with your primary doctor within 1 to 2 days for repeat evaluation. - Post Discharge Activity
[2020-01-30 15:41] LABS: BASO % 0.9 % (0-2.0); EOS % 1.3 % (0-4.5); HEMATOCRIT 37.3 % (32.4-45.2); HEMOGLOBIN 11.7 GM/dL (10.7-15.3); MCH 25.4 pg (25.7-33.7); MCHC 31.5 g/dl (32.0-36.0); MEAN CELL VOLUME 80.7 fl (80-96); MEAN PLT VOLUME 7.5 fl (7.5-11.1); MONO % 5.3 % (3.8-10.2); NEUT % 65.5 % (42.8-82.8); PLATELET COUNT 211 K/MM3 (134-434); RBC 4.62 M/mm3 (3.60-5.2); RDW 13.6 % (11.6-15.6); WHITE BLOOD COUNT 5.6 K/mm3 (4.0-10.0)
[2020-01-30 16:22] LABS: ALBUMIN 4.4 g/dl (3.4-5.0); BILIRUBIN,TOTAL 0.6 mg/dL (0.2-1); BLOOD UREA NITROGEN 9.1 mg/dL (7-18); CREATININE 0.7 mg/dL (0.55-1.3); POTASSIUM 3.6 mmol/L (3.5-5.1); TOT PROT 7.4 g/dl (6.4-8.2)
[2020-01-30 18:31] VITALS: BP 110/66; PULSE 76; TEMP 98
[2020-01-30 18:39] LABS: PH,URINE 6.5 (5.0-8.0); URINE APPEARANCE CLEAR; URINE BILIRUBIN NEGATIVE (NEGATIVE); URINE COLOR YELLOW; URINE GLUCOSE (UA) NEGATIVE (NEGATIVE); URINE KETONE NEGATIVE (NEGATIVE); URINE LEUK ESTERASE NEGATIVE (NEGATIVE); URINE NITRITE NEGATIVE (NEGATIVE); URINE PROTEIN NEGATIVE (NEGATIVE)
[2020-01-30 18:46] LABS: HCG,QUALITATIVE URINE Negative
[2020-01-30] MEDS ORDERED: LOPERAMIDE HCL 2 MG CAPSULE PO ONE (18:50)
[2020-01-30] MEDS ORDERED: LOPERAMIDE HCL 2 MG CAPSULE ONE (19:05)
== END 2020-01-30 19:12 | disposition home or self-care (01) ==
LOC: JER 13:39
PROC: 3E0337Z Introduction of Electrolytic and Water Balance Substance into Peripheral Vein, Percutaneous Approach (ICD-10-PCS; principal; 2020-01-30)
DX: R19.7 Diarrhea, unspecified (principal)
CPT/HCPCS: 36415; 80053; 81003; 83690; 84703; 85025; 87086; 99284-25

== ENCOUNTER 2020-07-26 05:57 | Emergency (ER) | payer OTHER ==
[2020-07-26 06:23] VITALS: BP 112/60; PULSE 78; TEMP 98.6; BMI 18.3
[2020-07-26] MEDS ORDERED: IBUPROFEN 600 MG TABLET (FP) PO ONE ×2 (07:52→08:04)
[2020-07-26 08:29] LABS: URINE APPEARANCE CLEAR; URINE BILIRUBIN NEGATIVE (NEGATIVE); URINE COLOR YELLOW; URINE GLUCOSE (UA) NEGATIVE (NEGATIVE); URINE KETONE NEGATIVE (NEGATIVE); URINE LEUK ESTERASE NEGATIVE (NEGATIVE); URINE NITRITE NEGATIVE (NEGATIVE); URINE PROTEIN NEGATIVE (NEGATIVE)
[2020-07-26 08:36] LABS: COCAINE, UR NEGATIVE ng/ml (CUTOFF=300); METHADONE, UR NEGATIVE ng/ml (CUTOFF=300); OPIATES, URI NEGATIVE ng/ml (CUTOFF=300); PHENCYCLIDINE,URINE NEGATIVE ng/ml (CUTOFF=25); URINE BARBITURATES NEGATIVE ng/ml (CUTOFF=200); URINE BENZODIAZEPINES NEGATIVE ng/ml (CUTOFF=200)
[2020-07-26 08:37] LABS: HCG,QUALITATIVE URINE NEGATIVE
[2020-07-26 08:38] LABS: URINE AMPHETAMINES NEGATIVE ng/ml (CUTOFF=500)
== END 2020-07-26 09:03 | disposition home or self-care (01) ==
LOC: JER 05:57
DX: G35 Multiple sclerosis (principal); M79.641 Pain in right hand
CPT/HCPCS: 80307; 81003; 84703; 87086; 99283-25

== ENCOUNTER 2021-11-28 01:35 | Emergency (ER) | payer OTHER ==
[2021-11-28 02:01] VITALS: BP 100/65; PULSE 75; TEMP 98.1; BMI 23.8
[2021-11-28] MEDS ORDERED: MAG HYDROX/AL HYDROX/SIMETH -MYLANTA- ORAL SUSPENSION PO ONE (02:05)
[2021-11-28] MEDS ORDERED: MAG HYDROX/AL HYDROX/SIMETH 30 ML UNIT-DOSE CUP ONE (02:23)
== END 2021-11-28 06:03 | disposition home or self-care (01) ==
LOC: JER 01:35
DX: F10.920 Alcohol use, unspecified with intoxication, uncomplicated (principal)
CPT/HCPCS: 99283-25